=== PATIENT | male | born 1955 | race Caucasian/White ===

== ENCOUNTER 2020-12-04 10:10 | Inpatient (IN) | payer MEDICARE ==
--- NOTE | 2020-12-04 11:18 | R.PREADM ---
PRE-ADMISSION SCREENING FORM SCREENING DATE AND TIME 12/03/2020 12:39 (CDT) ANTICIPATED REHAB ADMISSION DATE 12/05/2020 REFERRING FACILITY [facility] REFERRAL DATE AND TIME 12/03/2020 12:40 (CDT) REFERRAL ROOM# [id number] ACUTE ADMIT DATE 11/30/2020 Previous Rehabilitation(s): No. 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 Sergio Huitron M.D. MR# [id number] NAME ASHLEY PARKS ADDRESS [address] [facility] PHONE [facility] [id number] DATE OF 1955 AGE 65 SSN# [id number] GENDER male MARITAL STATUS PREF. LANGUAGE (IF NON-AZERI) [place]uan ADMIT FROM 02 - [facility] PRE-HOSPITAL LIVING SETTING 01 - Home (private home/apt. board/care, assisted living, skilled nursing, transitional living) HOME TYPE AND DETAILS # of levels in the residence: 0 # of steps within the residence: 1 # of levels in the residence: 1 PRE-HOSPITAL LIVING WITH Family/Relatives FAMILY SUPPORT Yes PRIMARY FAMILY CONTACT NAME FRANCOISE PARKS PRIMARY FAMILY CONTACT PHONE PRIMARY FAMILY CONTACT RELATIONSHIP PHONE PRIMARY FAMILY CONTACT ON ADM.? no IS PRIMARY FAMILY CONTACT AUTH. REP.? no 1ST EMERGENCY CONTACT FRANCOISE PARKS 1ST CONTACT PHONE 1ST CONTACT RELATIONSHIP PHONE 1ST CONTACT ON ADM. no IS 1ST CONTACT AUTH. REP.? no PHONE 2ND CONTACT ON ADM.? no PATIENT EMPLOYMENT STATUS Employed [employer] PAYOR INFORMATION: 1ST PAYOR NAME Sandor Patten [facility] 1ST PAYOR PHONE [phone] 1ST PAYOR INJURY/ILLNESS DUE TO ACCIDENT? No ANOTHER DEMOCRAT RESPONSIBLE? No PRIMARY REHAB/ACUTE DIAGNOSIS: MASS LESION OF ALIA ONSET DATE 11/03/2020 REHAB IMPAIRMENT CATEGORY (ENRRIQUE): 03 Nontraumatic brain injury (NTBI) MEETS 60% rule PRIMARY DIAGNOSIS-RELATED SURGERIES: ANTERIOR CERVICAL FUSION INFRATENTORIAL CRANIECTOMY FOR EXCISION OF BRAIN TUMOR SUMMARY OF ACUTE HOSPITALIZATION: Pt. is a 65 yo Right-handed male. On 11/03/2020 he was admitted to [facility] with diagnosis MASS LESION OF ALIA. His impairment category is Brain Dysfunction 02 - Other Brain (02.9). Pre-morbidly, Pt. was independent/mod-I in Safety Awareness, Self-Care, and Communication; and he had good Endurance and Transfers Control. Currently, he has deficits of Locomotion, Transfers Control, Sphincter Control, Endurance, and Safety Awareness. Pt. is now referred to [facility] for acute in-patient rehabilitation in order to maximize patient's functional independence in activities of daily living, strength, ROM, and mobi lity. Patient has realistic goal of being discharged at assistance level 7-Ind to reside at Home with Fami ly/Relatives. PAST MEDICAL HISTORY ARTHRITIS MIGRAINE FALL PRECAUTIONS SEIZURE PRECAUTIONS COGNITIVE IMPAIRMANTS PAST SURGICAL HISTORY: RI EXCISE INFRATINT BRAIN TUMOR LEFT 09/25/20 INFRATENTORIAL CRANIECTOMY FOR EXCISION OF BRAIN TUMOR S/P LEFT SHUNT PLACEMENT MEDICATION ALLERGIES: No Known Drug Allergies (NKDA) ENVIRONMENTAL ALLERGIES: - Substance Allergies None Known - Other Allergies None Known CODE STATUS: Full code WEIGHT/HEIGHT/BMI: WEIGHT 131 lbs BMI N/A DIET: - Diet Type Regular - Diet - Solid Texture Regular - Diet - Liquid Texture Regular - Tube Feed N/A REVIEW OF SYSTEMS: - Gen Alert and awake Lying in bed No apparent distress Oriented to: person, time, and place - Vital Signs Temperature: 98.4 F SBP/DBP: 129/69 Pulse: 53 Resp: 17 Vital signs stable, afebrile - CVS RRR VITAL SIGNS Temperature: 98.4 F SBP/DBP: 129/69 Pulse: 53 Resp: 17 Vital signs stable, afebrile MEDICATIONS/TREATMENT: Other- See attached MAR (Medication Administration Record). CURRENT SPHINCTER CONTROL: Pre-hospital bladder status: unspecified # of bladder accidents in the last 7 days prior to screenin Pre-hospital bowel status: unspecified # of bowel accidents in the last 7 days prior to screenin Last Bowel Movement Date: 12/03/2020 CURRENT LOCOMOTION STATUS: distance walked 150 feet WITH ROLLING WALKER DETAILED CURRENT FUNCTIONAL STATUS: - Bladder accident frequency: 7-Ind - No accidents in the past 7 days - Bowel accident frequency: 7-Ind - No accidents in the past 7 days - Walking score based on distance walked: 0(N/A) score based on distance walked: 3(>=150ft) - Wheelchair score based on distance traveled: 0(N/A) QI SCORES: - Self-Care A. Eating 04-Supervision or touching assistance B. Oral hygiene 03-Partial/moderate assistance C. Toileting hygiene 03-Partial/moderate assistance E. Shower/bathe self 03-Partial/moderate assistance F. Upper body dressing 04-Supervision or touching assistance G. Lower body dressing 03-Partial/moderate assistance H. Putting on/taking off footwear 88-Not attempted due to medical condition or safety concerns - Mobility A. Roll left and right 04-Supervision or touching assistance B. Sit to lying 03-Partial/moderate assistance C. Lying to sitting on side of bed 03-Partial/moderate assistance D. Sit to stand 03-Partial/moderate assistance E. Chair/itr-bn-deaql transfer 03-Partial/moderate assistance F. Toilet transfer 03-Partial/moderate assistance G. Car transfer 88-Not attempted due to medical condition or safety concerns I. Walk 10 feet 03-Partial/moderate assistance J. Walk 50 feet with two turns 03-Partial/moderate assistance K. Walk 150 feet 03-Partial/moderate assistance L. Walking 10 feet on uneven surfaces 88-Not attempted due to medical condition or safety concerns M. 1 step (curb) 88-Not attempted due to medical condition or safety concerns N. 4 steps 88-Not attempted due to medical condition or safety concerns O. 12 steps 88-Not attempted due to medical condition or safety concerns P. Picking up object 88-Not attempted due to medical condition or safety concerns R. Wheel 50 feet with two turns 88-Not attempted due to medical condition or safety concerns S. Wheel 150 feet 03-Partial/moderate assistance - Bladder and Bowel Bladder continence Bowel continence - Endurance Fair - Balance Fair - Safety Awareness Fair CURRENT FUNC. DEFICITS: Self-Care, Mobility, Endurance, Balance, and Safety Awareness CURRENT / PREVIOUS ASSISTIVE DEVICES: Rolling Walker HISTORY OF FALLS. HAS THE PATIENT HAD TWO OR MORE FALLS IN THE PAST YEAR OR ANY FALL WITH INJURY IN T HE PAST YEAR?: No PRIOR SURGERY. DID THE PATIENT HAVE MAJOR SURGERY DURING THE 100 DAYS PRIOR TO ADMISSION?: No THERAPY NOTES FROM ACUTE CARE: Attached. SPECIAL NEEDS: - Safety Concerns Skin breakdown precautions needed due to skin breakdown risk PATIENT NEEDS ACTIVE AND ONGOING THERAPEUTIC INTERVENTION OF MULTIPLE THERAPY DISCIPLINES, INCLUDING: - Dietary and Nutrition Adequate Nutrition. Nutritional Education. Nutritional Supplements. PATIENT NEEDS CLOSE MEDICAL SUPERVISION BY A REHABILITATION PHYSICIAN FOR: Coordination of Treatment Team PATIENT REQUIRES 24X7 REHAB NURSING FOR MEDICAL AND FUNCTIONAL MGT. OF THE FOLLOWING DEFICITS: Disease Management Medication Management Patient/Family Education Providing Safe Environment PATIENT REQUIRES INTENSIVE, COORDINATED INTERDISCIPLINARY APPROACH TO REHAB: Arranging Home Equipment/Services Discharge Planning Family Intervention/Training Dye Machine Tender/Case Management PATIENT REHAB POTENTIAL: Francis PARKS is able and expected to receive 3 hours of individualized therapy daily on at least 5 of every 7 days Francis Pizarro prognosis for significant practical improvement within a reasonable period of time appe ars Good Expected level of measurable improvement will be of a practical value to Francis Pizarro functional cap acity or adaptations to impairments Has a viable Discharge Plan Medically appropriate; condition is sufficiently stable to participate in intensive rehab program DISCHARGE PLAN: - Estimated Length of Stay (days) 13. - Consensus on plan Discharge plan has been discussed with primary caregiver. Patient/Family is in agreement with the marie n. Primary caregiver is in agreement with the plan. - Patient/Family Goals Return home independently. - Planned Living Setting Upon Discharge Home, to live with Family/Relatives. Transitional Living. RECOMMENDED CARE LEVEL: IRF RECOMMENDATION DETAILS: Recommended Admission to Comprehensive Rehabilitation Program to Increase Functional [place] SCREENER'S COMPLETENESS CONFIRMATION: - Screening Confirmation The patient data collection on this preadmission screening form is finished PHYSICIANS REVIEW AND ADMISSION DETERMINATION Admit - Based on my review of the Pre-Admission Screening results, in my medical judgment and experie nce, I concur with the findings and recommend admission to [facility], as this patient requires an IRF level of care. SIGNATURE PANEL: Glass Sagger - [electronically] signed by Delbert Ndiaye on 12/04/2020 at 10:00 (CDT) Glass Sagger - [electronically] signed by Gretchen Bradley RN on 12/04/2020 at 10:13 (CDT) Physician Reviewer - [electronically] signed by Dr. Sergio Huitron M.D. on 12/04/2020 at 11:18 (CDT )
--- OUTSIDE RECORDS SUMMARY | 2020-12-04 15:18 | XMS REPORT | Continuity of Care Document ---
:1955 Author Organization [facility] t Address [address] [place] [address] Care Team Providers Name Role Phone MARISOL JUÁREZ Attending Clinician Unavailable Yaakov WARREN Attending Clinician Cara Moe MD Attending Clinician Cara MOE Attending Clinician Unavailable Ganga Attending Clinician SANJUANITA Attending Clinician Unavailable Boy WARREN Attending Clinician RN, B Attending Clinician Rain DIOR Attending Clinician Christopher MACE Attending Clinician Unavailable Jeremi COLLEGE COUNSELOR Attending Clinician Colton VELÁSQUEZ Attending Clinician Vinod TOOLING ENGINEERING TECH Attending Clinician Nicolás WARREN Attending Clinician Rafael Paul MD Attending Clinician Mathieu WARREN Attending Clinician Marisol Juárez MD Attending Clinician Delia WARREN Attending Clinician Caitlin WARREN Attending Clinician Harjit Espinoza Attending Clinician Julio Rose Attending Clinician DELIA Attending Clinician Unavailable Eldon Vickers Attending Clinician Cara MOE Admitting Clinician Unavailable MATHIEU Admitting Clinician Unavailable Payers Payer Name Policy Type Policy Number Effective Date Expiration Date Tiffanie chen [place] [id number] 2020 ADVANTAGE HMO 00:00:00 EXCHANGE PLAN Problems Condition Condition Condition Status Onset Resolution Last Treating Co mments Source Name Details Category Date Date Treatment Clinician Date Malignant Malignant Disease Active neoplasm neoplasm 6-16 Godfrey o related related 00:00: n fatigue fatigue 00 Meningitis Meningitis Disease Active M D 6-02 Anderso 00:00: n 00 Muscle Muscle Disease Active MD weakness weakness 5-28 Godfrey o 00:00: n 00 Hypokalemi Hypokalemi Disease Active M D a a 5-28 Anderso 00:00: n 00 Functional Functional Disease Active M D gait gait 5-27 Anderso abnormalit abnormalit 00:00: n y y 00 Abnormal Abnormal Disease Active gait gait 5-27 Anderso 00:00: n 00 Personal Personal Disease Active MD care care 5-27 Anderso impairment impairment 00:00: n 00 Slow Slow Disease Active transit transit 5-26 Anderso constipati constipati 00:00: n on on 00 Acute Acute Disease Active headache headache 5-24 Godfrey o 00:00: n 00 Severe Severe Disease Active protein-ca protein-ca 5-20 An derso russ russ 00:00: n malnutriti malnutriti 00 on on Pseudomeni Pseudomeni Disease Active Overview : ngocele ngocele 5-19 Formattin Jeffrey so 00:00: g of this n 00 note might be different from the original. 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 09-22 An derso headache headache 00:00: n (NDPH) (NDPH) 00 Vasogenic Vasogenic Disease Active cerebral cerebral 09-22 Godfrey o edema edema 00:00: n 00 Obstructiv Obstructiv Disease Active M D e e 09-22 Anderso hydrocepha hydrocepha 00:00: n alfonzo alfonzo 00 VOMITING Diagnosis Active 2020-10-04 M emoria 09-21 21:44:00 l VOMITING 00:00: Sanjay n 00 Active 09/21/2020 [facility] Metabolic Metabolic Disease Active encephalop encephalop An derso athy athy n Raised Raised Disease Resolve 2020-10-12 2020-10-12 intracrani intracrani d 09-23 00:00:00 12:44:58 Anderso al al 00:00: n pressure pressure 00 Allergies, Adverse Reactions, Alerts Allergy Allergy Status Severity Reaction(s) Onset Inactive Treating Comm ents Source Name Type Date Date Clinician No Known No Known Active Memori a Medicati Medicati l on on Ishan Allergie Allergie s s Family History Family Member Diagnosis Comments Start Date Stop Date Source Maternal grandfather Colon cancer MD Delarosa Maternal grandmother Diabetes MD Eli saldivar Maternal grandmother Hypertension MD Delarosa Social History Social Habit Start Date Stop Date Quantity Comments Source Exposure to Not sure MD Delarosa SARS-CoV-2 (event) Tobacco use and 2020-11-30 2020-11-30 Never used MD Donahue on exposure 00:00:00 00:00:00 Alcohol intake 2020-11-30 2020-11-30 Lifetime MD Ivett stevenson 00:00:00 00:00:00 non-drinker (finding) History SDOH 2020-09-22 2020-09-22 1 MD Delarosa Alcohol Frequency 00:00:00 00:00:00 History SDOH 2020-09-22 2020-09-22 99 MD Delarosa Alcohol Std Drinks 00:00:00 00:00:00 History SDOH 2020-09-22 2020-09-22 1 MD Delarosa Alcohol Binge 00:00:00 00:00:00 [birth year] MD Donahue on 00:00:00 00:00:00 Smoking Status Start Date Stop Date Source Never smoker MD Delarosa Medications Ordered Filled Start Stop Current Ordering Indication Dosage Frequency Signature Comments Components Source Medication Medication Date Date Medication? Clinician (SIG) Name Name acetaminoph Yes Headache, 1{tbl} Take 1 MD en-codeine 6-18 unspecified tablet by Anderso (TYLENOL 00:00: , not mouth n #3) 300 00 otherwise every 4 mg-30 mg specified (four) tablet hours as needed for moderate pain. famotidine Yes Nausea 20mg Take 1 MD (PEPCID) 20 6-18 tablet (20 An derso mg tablet 00:00: mg) by n 00 mouth twice daily. metoprolol Yes Hypertensio 12.5mg Take 0.5 MD tartrate 6-18 n tablets Anderso (LOPRESSOR) 00:00: (12.5 mg) n 25 mg 00 by mouth tablet every 12 (twelve) hours. polyethylen Yes Slow Reconstitu e glycol 6-18 transit te powder And erso (MIRALAX) 00:00: constipatio packet n 17 g packet 00 n prior to administra tion. Stir and dissolve one packet of powder (17g) in any 4 to 8 ounces of beverage (cold, hot or room temperatur e). potassium Yes Hypokalemia 20meq Take 2 MD chloride 6-18 capsules Anderso (MICRO-K) 00:00: (20 mEq) n 10 mEq CR 00 by mouth capsule daily. ondansetron Yes Nausea 4mg Take 1 MD (ZOFRAN) 4 6-18 tablet (4 Jameel rso mg tablet 00:00: mg) by n 00 mouth every 6 (six) hours as needed for nausea or vomiting. amLODIPine Yes Hypertensio 5mg Take 1 MD (NORVASC) 5 6-18 n tablet (5 And erso mg tablet 00:00: mg) by n 00 mouth daily. senna-docus Yes Slow 1{tbl} Take 1 MD ate 6-18 transit tablet by Anderso (SENOKOT-S) 00:00: constipatio mouth n 8.6 mg-50 00 n daily. mg tablet amLODIPine 2020- No Hypertensio 5mg Take 1 MD (NORVASC) 5 4-17 06-18 n tablet (5 An derso mg tablet 00:00: 00:00 mg) by n 00 :00 mouth daily. traMADol 2020- No Mass lesion 50mg Take 1 MD (ULTRAM) 50 4-16 06-18 of brain tablet (50 Anderso mg tablet 00:00: 00:00 mg) by n 00 :00 mouth every 6 (six) hours as needed for moderate pain. amLODIPine 2020- No Mass lesion 5mg Take 1 MD (NORVASC) 5 4-16 04-16 of brain tablet (5 Anderso mg tablet 00:00: 00:00 mg) by n 00 :00 mouth daily. pantoprazol 2020- No Mass lesion 40mg Take 1 MD e 4-13 04-16 of brain tablet (40 Jameel rso (PROTONIX) 00:00: 00:00 mg) by n 40 mg EC 00 :00 mouth tablet daily. Take while on dexamethas one senna-docus 2020- No Mass lesion 1{tbl} Take 1 MD ate 4-12 06-18 of brain tablet by Jeffrey so (SENOKOT-S) 00:00: 00:00 mouth n 8.6 mg-50 00 :00 twice mg tablet daily. dexamethaso 2020- No Mass lesion Take and MD ne 4-12 04-16 of brain follow Anderso (DECADRON) 00:00: 00:00 dexamethas n 2 mg tablet 00 :00 one taper calendar as directed until all tablets are taken. Take with food and protonix. Do not stop abruptly traMADol 2020- No Mass lesion 50mg Take 1 MD (ULTRAM) 50 4-12 04-16 of brain tablet (50 Anderso mg tablet 00:00: 00:00 mg) by n 00 :00 mouth every 6 (six) hours as needed for moderate pain. Dexamethaso Yes Notes: Rogelio yossi ne 4-06 Concentrat l 04:36: ion: [place] 00 4mg/ml Ondansetron No Notes: Rogelio yossi -06 (Same as: l 00:46: Zofran) [place] 00 MEDICATION WASTE Product Size: 4 mg Product Wasted: ___ mg Sodium No 1,000 mL, Memori a Chloride 06 1000 l 0.9% 00:46: ml/hr, Ishan (Bolus) IV 00 Infuse Over: 1 hr, Route: IV, 1,000, Drug form: INJ, ONCE, Priority: STAT, kg, Start date: 09/21/20 19:46:00 CDT, Stop date: 09/21/20 19:46:00 CDT, 0 ondansetron No 4mg 4 mg every MD (ZOFRAN) 4 3-22 18 6 (six) Jeffrey so mg tablet 00:00: 00:00 hours as n 00 :00 needed. Vital Signs Vital Name Observation Time Observation Value Comments Source WEIGHT 2020-09-25 06:31:00 60.7 kg HEIGHT 2020-09-22 01:13:00 172.7 cm WEIGHT 2020-09-25 06:31:00 60.7 kg HEIGHT 2020-09-22 01:13:00 172.7 cm Systolic blood 2020-12-04 17:31:00 114 mm[Hg] pressure Diastolic blood 2020-12-04 17:31:00 65 mm[Hg] MD Sienna ruby pressure Heart rate 2020-12-04 17:31:00 48 /min MD Jeffrey garcia Body temperature 2020-12-04 17:31:00 36.78 Chelita MD Eli saldivar Respiratory rate 2020-12-04 17:31:00 15 /min MD Eli saldivar Oxygen saturation in 2020-12-04 17:31:00 97 /min MD Delarosa Arterial blood by Pulse oximetry Body weight 2020-11-25 10:02:00 58.1 kg MD Jeffrey garcia BMI 2020-11-25 10:02:00 19.59 kg/m2 MD Jeffrey garcia Body height 2020-11-06 17:17:00 172.2 cm MD Jeffrey garcia Temperature Oral (F) 2020-09-22 05:23:00 98.2 F [facility] Heart Rate 2020-09-22 05:23:00 [facility] [place] Respitory Rate 2020-09-22 05:23:00 Memori al Ishan Systolic (mm Hg) 2020-09-22 05:23:00 Rogelio rial Ishan Diastolic (mm Hg) 2020-09-22 05:23:00 Mem orial Ishan Height 2020-09-22 00:45:00 175.26 cm [facility] BMI Calculated 2020-09-22 00:45:00 [facility] [place] Weight 2020-09-22 00:45:00 [facility] [place] Systolic (mm Hg) 2020-09-22 00:45:00 Rogelio rial Ishan Diastolic (mm Hg) 2020-09-22 00:45:00 Mem orial Ishan Heart Rate 2020-09-22 00:45:00 [facility] Respitory Rate 2020-09-22 00:45:00 Memori al Ishan Temperature Oral (F) 2020-09-22 00:45:00 98.2 F [facility] Procedures Procedure Date / Time Performed Performing Clinician [facility] clarissa MAGNESIUM LEVEL 2020-12-04 10:45:00 Koby Palacios MD PHOSPHORUS LEVEL 2020-12-04 10:45:00 Koby Palacios MD BASIC METABOLIC PANEL, 2020-12-04 10:45:00 Koby Palacios MD CALCIUM IONIZED COMPLETE BLOOD COUNT W/ 2020-12-04 10:45:00 Fredi Lira MD DIFFERENTIAL PREALBUMIN 2020-12-04 10:45:00 Koby Palacios MD GLUCOSE LEVEL 2020-12-04 10:45:00 Janiya Moe MD rsbrooklynn BLOOD UREA NITROGEN 2020-12-04 10:45:00 Janiya Moe MD ELECTROLYTE PANEL 2020-12-04 10:45:00 Janiya Moe MD SERUM CREATININE 2020-12-04 10:45:00 Janiya Moe MD And erson .GLOMERULAR FILTRATION RATE 2020-12-04 10:45:00 Parul Moe MD CALCIUM IONIZED, VENOUS 2020-12-04 10:45:00 Janiya Moe MD Results CBC 2020-12-04 10:45:00 Fredi Lira MD MANUAL DIFFERENTIAL 2020-12-04 10:45:00 Fredi Lira MD Jeffrey son INFLUENZA A/B + COVID-19 2020-12-04 03:34:00 Janiya Moe MD ASYMPTOMATIC-L BASIC METABOLIC PANEL, 2020-12-03 10:35:00 Koby Palacios MD CALCIUM IONIZED COMPLETE BLOOD COUNT W/ 2020-12-03 10:35:00 Fredi Lira MD nderson DIFFERENTIAL GLUCOSE LEVEL 2020-12-03 10:35:00 Janiya Moe MD Jameel rson BLOOD UREA NITROGEN 2020-12-03 10:35:00 Janiya Moe MD ELECTROLYTE PANEL 2020-12-03 10:35:00 Janiya Moe MD SERUM CREATININE 2020-12-03 10:35:00 Janiya Moe MD And erson .GLOMERULAR FILTRATION RATE 2020-12-03 10:35:00 Parul Moe MD CALCIUM IONIZED, VENOUS 2020-12-03 10:35:00 Janiya Moe MD Results CBC 2020-12-03 10:35:00 Fredi Lira MD MANUAL DIFFERENTIAL 2020-12-03 10:35:00 Fredi Lira MD Jeffrey son MRI CERVICAL THORACIC LUMBAR 2020-12-02 23:06:27 Milad Sibley MD SPINE WO CONTRAST POTASSIUM LEVEL 2020-12-02 19:23:00 Landy Schuler MD on CALCIUM IONIZED, VENOUS 2020-12-02 12:13:00 Janiya Moe MD MAGNESIUM LEVEL 2020-12-02 10:43:00 Koby Palacios MD PHOSPHORUS LEVEL 2020-12-02 10:43:00 Koby Palacios MD BASIC METABOLIC PANEL, 2020-12-02 10:43:00 Koby Palacios MD CALCIUM IONIZED COMPLETE BLOOD COUNT W/ 2020-12-02 10:43:00 Fredi Lira MD DIFFERENTIAL GLUCOSE LEVEL 2020-12-02 10:43:00 Janiya Moe MD Jameel rson BLOOD UREA NITROGEN 2020-12-02 10:43:00 Janiya Moe MD ELECTROLYTE PANEL 2020-12-02 10:43:00 Janiya Moe MD SERUM CREATININE 2020-12-02 10:43:00 Janiya Moe MD And erson .GLOMERULAR FILTRATION RATE 2020-12-02 10:43:00 Parul Moe MD Results CBC 2020-12-02 10:43:00 Fredi Lira MD MANUAL DIFFERENTIAL 2020-12-02 10:43:00 Fredi Lira MD son OSCILLATORY PEP 2020-12-02 01:00:19 Landy Schuler MD on OSCILLATORY PEP 2020-12-01 19:00:50 Landy Schuler MD on OSCILLATORY PEP 2020-12-01 13:00:18 Landy Schuler MD on BASIC METABOLIC PANEL, 2020-12-01 10:46:00 Koby Palacios MD CALCIUM IONIZED COMPLETE BLOOD COUNT W/ 2020-12-01 10:46:00 Fredi Lira MD DIFFERENTIAL GLUCOSE LEVEL 2020-12-01 10:46:00 Janiya Moe MD Jameel rson BLOOD UREA NITROGEN 2020-12-01 10:46:00 Janiya Moe MD ELECTROLYTE PANEL 2020-12-01 10:46:00 Janiya Moe MD SERUM CREATININE 2020-12-01 10:46:00 Janiya Moe MD And erson .GLOMERULAR FILTRATION RATE 2020-12-01 10:46:00 Parul Moe MD CALCIUM IONIZED, VENOUS 2020-12-01 10:46:00 Janiya Moe MD Results CBC 2020-12-01 10:46:00 Fredi Lira MD MANUAL DIFFERENTIAL 2020-12-01 10:46:00 Fredi Lira MD Jeffrey son OSCILLATORY PEP 2020-12-01 01:00:18 Landy Schuler MD on POTASSIUM LEVEL 2020-11-30 17:59:00 Landy Schuler MD on OSCILLATORY PEP 2020-11-30 13:00:17 Landy Schuler MD on BASIC METABOLIC PANEL, 2020-11-30 11:03:00 Koby Palacios MD CALCIUM IONIZED COMPLETE BLOOD COUNT W/ 2020-11-30 11:03:00 Fredi Lira MD nderson DIFFERENTIAL GLUCOSE LEVEL 2020-11-30 11:03:00 Janiya Moe MD Jameel rson BLOOD UREA NITROGEN 2020-11-30 11:03:00 Janiya Moe MD ELECTROLYTE PANEL 2020-11-30 11:03:00 Janiya Moe MD SERUM CREATININE 2020-11-30 11:03:00 Janiya Moe MD And erson .GLOMERULAR FILTRATION RATE 2020-11-30 11:03:00 Parul Moe MD CALCIUM IONIZED, VENOUS 2020-11-30 11:03:00 Janiya Moe MD Results CBC 2020-11-30 11:03:00 Fredi Lira MD MANUAL DIFFERENTIAL 2020-11-30 11:03:00 Fredi Lira MD Jeffrey son MAGNESIUM LEVEL 2020-11-30 11:03:00 Janiya Moe MD Jameel rson PHOSPHORUS LEVEL 2020-11-30 11:03:00 Janiya Moe MD And erson OSCILLATORY PEP 2020-11-30 07:00:23 Landy Schuler MD on OSCILLATORY PEP 2020-11-30 01:00:23 [address] MD on CT CHEST ABDOMEN PELVIS W WO 2020-11-29 22:53:28 Louisa Rowan MD CONTRAST BASIC METABOLIC PANEL, 2020-11-29 11:00:00 Koby Palacios MD CALCIUM IONIZED COMPLETE BLOOD COUNT W/ 2020-11-29 11:00:00 Fredi Lira MD DIFFERENTIAL GLUCOSE LEVEL 2020-11-29 11:00:00 Janiya Moe MD Jameelclarissa galarza BLOOD UREA NITROGEN 2020-11-29 11:00:00 Janiya Moe MD ELECTROLYTE PANEL 2020-11-29 11:00:00 Janiya Moe MD SERUM CREATININE 2020-11-29 11:00:00 Janiya Moe MD And erson .GLOMERULAR FILTRATION RATE 2020-11-29 11:00:00 Parul Moe MD CALCIUM IONIZED, VENOUS 2020-11-29 11:00:00 Janiya Moe MD Results CBC 2020-11-29 11:00:00 Fredi Lira MD MANUAL DIFFERENTIAL 2020-11-29 11:00:00 Fredi Lira MD son OSCILLATORY PEP 2020-11-29 07:00:27 Landy Schuler MD on OSCILLATORY PEP 2020-11-29 01:00:18 Landy Schuler MD on EKG, 12-LEAD (PORTABLE) 2020-11-29 00:00:00 Marina Ren MDrson OSCILLATORY PEP 2020-11-28 19:00:54 Landy Schuler MD on OSCILLATORY PEP 2020-11-28 13:00:17 Landy Schuler MD on AMMONIA LEVEL 2020-11-28 11:50:00 Fredi Lira MD BASIC METABOLIC PANEL, 2020-11-28 11:50:00 Koby Palacios MD CALCIUM IONIZED COMPLETE BLOOD COUNT W/ 2020-11-28 11:50:00 Fredi Lira MD DIFFERENTIAL GLUCOSE LEVEL 2020-11-28 11:50:00 Janiya Moe MD Jameelclarissa galarza BLOOD UREA NITROGEN 2020-11-28 11:50:00 Janiya Moe MD ELECTROLYTE PANEL 2020-11-28 11:50:00 Janiya Moe MD SERUM CREATININE 2020-11-28 11:50:00 Janiya Moe MD And erson .GLOMERULAR FILTRATION RATE 2020-11-28 11:50:00 Parul Moe MD CALCIUM IONIZED, VENOUS 2020-11-28 11:50:00 Janiya Moe MD Results CBC 2020-11-28 11:50:00 Fredi Lira MD MANUAL DIFFERENTIAL 2020-11-28 11:50:00 Fredi Lira MD Jeffrey son MAGNESIUM LEVEL 2020-11-28 11:50:00 Janiya Moe MD Jameel rson PHOSPHORUS LEVEL 2020-11-28 11:50:00 Janiya Moe MD And erson OSCILLATORY PEP 2020-11-28 07:00:25 Landy Schuler MD on OSCILLATORY PEP 2020-11-28 01:00:23 Landy Schuler MD on XR ABDOMEN 1 VW PORTABLE 2020-11-27 20:53:31 Fredi Lira MD OSCILLATORY PEP 2020-11-27 19:24:57 Landy Schuler MD on BASIC METABOLIC PANEL, 2020-11-27 17:49:00 Landy Schuler MD CALCIUM TOTAL GLUCOSE LEVEL 2020-11-27 17:49:00 Landy Schuler MD on BLOOD UREA NITROGEN 2020-11-27 17:49:00 Landy Schuler MDson ELECTROLYTE PANEL 2020-11-27 17:49:00 Landy Schuler MD Jameel rson SERUM CREATININE 2020-11-27 17:49:00 Landy Schuler MD Jeffrey son .GLOMERULAR FILTRATION RATE 2020-11-27 17:49:00 Vanessa Schuler MD CALCIUM LEVEL TOTAL 2020-11-27 17:49:00 Landy Schuler MD BASIC METABOLIC PANEL, 2020-11-27 10:38:00 Koby Palacios MD CALCIUM IONIZED COMPLETE BLOOD COUNT W/ 2020-11-27 10:38:00 Fredi Lira MD nderson DIFFERENTIAL PREALBUMIN 2020-11-27 10:38:00 Koby Palacios MD GLUCOSE LEVEL 2020-11-27 10:38:00 Janiya Moe MD Jameel rson BLOOD UREA NITROGEN 2020-11-27 10:38:00 Janiya Moe MD ELECTROLYTE PANEL 2020-11-27 10:38:00 Janiya Moe MD SERUM CREATININE 2020-11-27 10:38:00 Janiya Moe .GLOMERULAR FILTRATION RATE 2020-11-27 10:38:00 Parul Moe MD CALCIUM IONIZED, VENOUS 2020-11-27 10:38:00 Janiya Moe MD Results CBC 2020-11-27 10:38:00 Fredi Lira MD MANUAL DIFFERENTIAL 2020-11-27 10:38:[address] HEAD WO CONTRAST 2020-11-27 09:06:00 Dajuan Bay MD XR SHUNT SERIES 2020-11-26 23:30:00 Koby Palacios MD COMPLETE BLOOD COUNT W/ 2020-11-26 07:46:00 Koby Palacios MD DIFFERENTIAL BASIC METABOLIC PANEL, 2020-11-26 07:46:00 Koby Palacios MD CALCIUM IONIZED Results CBC 2020-11-26 07:46:00 Sujata Grimes MD MANUAL DIFFERENTIAL 2020-11-26 07:46:00 Sujata Grimes MD [facility] GLUCOSE LEVEL 2020-11-26 07:46:00 Scooter Jones MD BLOOD UREA NITROGEN 2020-11-26 07:46:00 Scooter Jones MD [facility] ELECTROLYTE PANEL 2020-11-26 07:46:00 [facility] 2020-11-26 07:46:00 Scooter Jones MD .GLOMERULAR FILTRATION RATE 2020-11-26 07:46:00 Scooter Jones MD CALCIUM IONIZED, VENOUS 2020-11-26 07:46:00 Scooter Jones MD MAGNESIUM LEVEL 2020-11-26 07:46:00 Scooter Jones MD PHOSPHORUS LEVEL 2020-11-26 07:46:[address] HEAD WO CONTRAST 2020-11-26 02:56:25 Louisa Rowan MD son EKG, 12-LEAD (PORTABLE) 2020-11-26 00:00:00 Laisha Walker MD POC GLUCOSE SCREEN 2020-11-25 20:37:00 Janiya Moe MD CREATION OF 2020-11-25 16:10:00 Janiya Moe MD Jameel rsbrooklynn VENTRICULO-PERITONEAL SHUNT TYPE AND SCREEN 2020-11-25 11:09:00 Louisa Rowan MD PROTHROMBIN TIME 2020-11-25 11:09:00 Louisa Rowan MD PARTIAL THROMBOPLASTIN TIME 2020-11-25 11:09:00 Louisa Rowan MD ABORH 2020-11-25 11:09:00 Janiya Moe MD rson ANTIBODY SCREEN 2020-11-25 11:09:00 Janiya Moe MD Jameelclarissa galarza CLOT EXPIRATION DATE 2020-11-25 11:09:00 Janiya Moe MD TMP INTERPRETATION ANTIBODY 2020-11-25 11:09:00 Parul Moe MD SCREEN NEGATIVE BASIC METABOLIC PANEL, 2020-11-25 05:55:00 Koby Palacios MD CALCIUM IONIZED GLUCOSE LEVEL 2020-11-25 05:55:00 Scooter Jones MD BLOOD UREA NITROGEN 2020-11-25 05:55:00 Scooter Jones MD son ELECTROLYTE PANEL 2020-11-25 05:55:00 Scooter Jones MD n SERUM CREATININE 2020-11-25 05:55:00 Scooter Jones MD .GLOMERULAR FILTRATION RATE 2020-11-25 05:55:00 Scooter Jones MD CALCIUM IONIZED, VENOUS 2020-11-25 05:55:00 Scooter Jones MD VANCOMYCIN LEVEL TROUGH 2020-11-25 04:17:00 Morenita Park MD Nancie US LEG VENOUS DOPPLER 2020-11-24 15:21:21 Louisa Rowanon BILATERAL COMPLETE BLOOD COUNT W/ 2020-11-24 05:39:00 Koby Palacios MD DIFFERENTIAL MAGNESIUM LEVEL 2020-11-24 05:39:00 Koby Palacios MD PHOSPHORUS LEVEL 2020-11-24 05:39:00 Koby Palacios MD BASIC METABOLIC PANEL, 2020-11-24 05:39:00 Koby Palacios MD CALCIUM IONIZED Results CBC 2020-11-24 05:39:00 Sujata Grimes MD MANUAL DIFFERENTIAL 2020-11-24 05:39:00 Sujata Grimes MD [facility] GLUCOSE LEVEL 2020-11-24 05:39:00 Scooter Jones MD BLOOD UREA NITROGEN 2020-11-24 05:39:00 Scooter Jones MD [facility] ELECTROLYTE PANEL 2020-11-24 05:39:00 Scooter Jones MD SERUM CREATININE 2020-11-24 05:39:00 Scooter Jones MD .GLOMERULAR FILTRATION RATE 2020-11-24 05:39:00 Scooter Jones MD CALCIUM IONIZED, VENOUS 2020-11-24 05:39:00 Scooter Jones MD POC GLUCOSE SCREEN 2020-11-23 22:30:[address] HEAD WO CONTRAST 2020-11-23 20:08:09 Louisa Rowan MD [facility] POC GLUCOSE SCREEN 2020-11-23 16:36:00 Janiya Moe MD BASIC METABOLIC PANEL, 2020-11-23 06:04:00 Koby Palacios MD CALCIUM IONIZED GLUCOSE LEVEL 2020-11-23 06:04:00 Scooter Jones MD BLOOD UREA NITROGEN 2020-11-23 06:04:00 Scooter Jones MD son ELECTROLYTE PANEL 2020-11-23 06:04:00 Scooter Jones MD SERUM CREATININE 2020-11-23 06:04:00 Scooter Jones MD .GLOMERULAR FILTRATION RATE 2020-11-23 06:04:00 Scooter Jones MD CALCIUM IONIZED, VENOUS 2020-11-23 06:04:00 Scooter Jones MD VANCOMYCIN LEVEL TROUGH 2020-11-22 16:30:00 Janiya Moe MD COMPLETE BLOOD COUNT W/ 2020-11-22 06:18:00 Koby Palacios MD DIFFERENTIAL BASIC METABOLIC PANEL, 2020-11-22 06:18:00 Pricilla Burton MD CALCIUM IONIZED MAGNESIUM LEVEL 2020-11-22 06:18:00 Koby Palacios MD PHOSPHORUS LEVEL 2020-11-22 06:18:00 Koby Palacios MD Results CBC 2020-11-22 06:18:00 Sujata Grimes MD MANUAL DIFFERENTIAL 2020-11-22 06:18:00 Sujata Grimes MD [facility] GLUCOSE LEVEL 2020-11-22 06:18:00 Scooter Jones MD BLOOD UREA NITROGEN 2020-11-22 06:18:00 Scooter Jones MD [facility] ELECTROLYTE PANEL 2020-11-22 06:18:00 Scooter Jones MD SERUM CREATININE 2020-11-22 06:18:00 Scooter Jones MD .GLOMERULAR FILTRATION RATE 2020-11-22 06:18:00 Scooter Jones MD CALCIUM IONIZED, VENOUS 2020-11-22 06:18:00 Scooter Jones MD POC GLUCOSE SCREEN 2020-11-20 22:29:00 Janiya Moe MD VANCOMYCIN LEVEL TROUGH 2020-11-20 16:32:00 Scooter Jones MD PREALBUMIN 2020-11-20 11:59:00 Koby Palacios MD COMPLETE BLOOD COUNT W/ 2020-11-20 06:06:00 Koby Palacios MD DIFFERENTIAL BASIC METABOLIC PANEL, 2020-11-20 06:06:00 Mitch Villalobos MD CALCIUM IONIZED MAGNESIUM LEVEL 2020-11-20 06:06:00 Belle Medellin MD PHOSPHORUS LEVEL 2020-11-20 06:06:00 Belle Medellin MD Results CBC 2020-11-20 06:06:00 Sujata Grimes MD MANUAL DIFFERENTIAL 2020-11-20 06:06:00 Sujata Grimes MD Jeffrey [facility] GLUCOSE LEVEL 2020-11-20 06:06:00 Sujata Grimes MD BLOOD UREA NITROGEN 2020-11-20 06:06:00 Sujata Grimes MD [facility] ELECTROLYTE PANEL 2020-11-20 06:06:00 Sujata Grimes MD SERUM CREATININE 2020-11-20 06:06:00 Sujata Grimes MD .GLOMERULAR FILTRATION RATE 2020-11-20 06:06:00 Sujata Grimes MD CALCIUM IONIZED, VENOUS 2020-11-20 06:06:00 Sujata Grimes MD VANCOMYCIN LEVEL TROUGH 2020-11-19 16:30:00 Scooter Jones MD PLATELET COUNT 2020-11-19 13:26:00 Kasandra Pool MD BASIC METABOLIC PANEL, 2020-11-19 07:07:00 Mitch Villalobos MD CALCIUM IONIZED MAGNESIUM LEVEL 2020-11-19 07:07:00 Belle Medellin MD PHOSPHORUS LEVEL 2020-11-19 07:07:00 Belle Medellin MD GLUCOSE LEVEL 2020-11-19 07:07:00 Sujata Grimes MD BLOOD UREA NITROGEN 2020-11-19 07:07:00 Sujata Grimes MD [facility] ELECTROLYTE PANEL 2020-11-19 07:07:00 Sujata Grimes MD SERUM CREATININE 2020-11-19 07:07:00 Sujata Grimes MD .GLOMERULAR FILTRATION RATE 2020-11-19 07:07:00 Sujata Grimes MD CALCIUM IONIZED, VENOUS 2020-11-19 07:07:00 Sujata Grimes MD EKG, 12-LEAD (PORTABLE) 2020-11-19 00:00:00 Pricilla Burton MD POC GLUCOSE SCREEN 2020-11-18 22:14:00 Janiya Moe MD POC GLUCOSE SCREEN 2020-11-18 16:19:00 Janiya Moe MD COMPLETE BLOOD COUNT W/ 2020-11-18 06:39:00 Koby Palacios MD DIFFERENTIAL BASIC METABOLIC PANEL, 2020-11-18 06:39:00 Mitch Villalobos MD CALCIUM IONIZED MAGNESIUM LEVEL 2020-11-18 06:39:00 VigneshBelle lopez MD PHOSPHORUS LEVEL 2020-11-18 06:39:00 Belle Medellin MD Results CBC 2020-11-18 06:39:00 Sujata Grimes MD MANUAL DIFFERENTIAL 2020-11-18 06:39:00 Sujata Grimes MD [facility] GLUCOSE LEVEL 2020-11-18 06:39:00 Sujata Grimes MD BLOOD UREA NITROGEN 2020-11-18 06:39:00 Sujata Grimes MD [facility] ELECTROLYTE PANEL 2020-11-18 06:39:00 Sujata Grimes MD SERUM CREATININE 2020-11-18 06:39:00 Sujata Grimes MD .GLOMERULAR FILTRATION RATE 2020-11-18 06:39:00 Sujata Grimes MD CALCIUM IONIZED, VENOUS 2020-11-18 06:39:00 Sujata Grimes MD VANCOMYCIN LEVEL TROUGH 2020-11-18 03:45:00 Scooter Jones MD BASIC METABOLIC PANEL, 2020-11-17 07:20:00 Mitch Villalobos MD CALCIUM IONIZED MAGNESIUM LEVEL 2020-11-17 07:20:00 VigneshBelle lopez MD PHOSPHORUS LEVEL 2020-11-17 07:20:00 Belle Medellin MD GLUCOSE LEVEL 2020-11-17 07:20:00 Sujata Grimes MD BLOOD UREA NITROGEN 2020-11-17 07:20:00 Sujata Grimes MD [facility] ELECTROLYTE PANEL 2020-11-17 07:20:00 Sujata Grimes MD SERUM CREATININE 2020-11-17 07:20:00 Sujata Grimes MD .GLOMERULAR FILTRATION RATE 2020-11-17 07:20:00 Sujata Grimes MD CALCIUM IONIZED, VENOUS 2020-11-17 07:20:00 Sujata Grimes MD CELL COUNT W/ DIFF 2020-11-16 19:16:00 Koby West MD CEREBROSPINAL FLUID CSF CULTURE 2020-11-16 19:16:00 Koby West MD Jameel rson FUNGUS,CATHETER TIP CULTURE 2020-11-16 19:16:00 Koby West MD AFB CULTURE W/ SMEAR 2020-11-16 19:16:00 Koby West MD MENINGITIS-ENCEPHALITIS 2020-11-16 19:16:00 Koby West MD MULTIPLEX PANEL PROTEIN CEREBROSPINAL FLUID 2020-11-16 19:16:00 Koby West MD GLUCOSE CEREBROSPINAL FLUID 2020-11-16 19:16:00 Koby West MD CATHETER TIP CULTURE 2020-11-16 19:16:00 Koby West MD ANAEROBIC CULTURE 2020-11-16 19:16:00 Brandyn Adams MD And radha MENINGITIS-ENCEPHALITIS PANEL 2020-11-16 19:16:00 Jonny Moe MD MENINGITIS-ENCEPHALITIS 2020-11-16 19:16:00 Janiya Moe MD MULTIPLEX PANEL PATH REVIEW CRYPTOCOCCAL ANTIGEN 2020-11-16 19:16:00 Janiya Moe MD CRYPTOCOCCAL ANTIGEN PATH 2020-11-16 19:16:00 Janiya Moe MD REVIEW ARTERIAL BLOOD GAS 2020-11-16 13:28:00 Scooter Jones MD on COMPLETE BLOOD COUNT W/ 2020-11-16 06:32:00 Koby Palacios MD DIFFERENTIAL BASIC METABOLIC PANEL, 2020-11-16 06:32:00 Mitch Villalobos MD CALCIUM IONIZED MAGNESIUM LEVEL 2020-11-16 06:32:00 Belle Medellin MD PHOSPHORUS LEVEL 2020-11-16 06:32:00 Belle Medellin MD Results CBC 2020-11-16 06:32:00 Sujata Grimes MD MANUAL DIFFERENTIAL 2020-11-16 06:32:00 Sujata Grimes MD [facility] GLUCOSE LEVEL 2020-11-16 06:32:00 Sujata Grimes MD BLOOD UREA NITROGEN 2020-11-16 06:32:00 Sujata Grimes MD Jeffrey son ELECTROLYTE PANEL 2020-11-16 06:32:00 Sujata Grimes MD SERUM CREATININE 2020-11-16 06:32:00 Sujata Grimes MD .GLOMERULAR FILTRATION RATE 2020-11-16 06:32:00 Sujata Grimes MD CALCIUM IONIZED, VENOUS 2020-11-16 06:32:00 Sujata Grimes MD BASIC METABOLIC PANEL, 2020-11-15 19:04:00 Adam Benson MD CALCIUM IONIZED MAGNESIUM LEVEL 2020-11-15 19:04:00 Adam Benson MD PHOSPHORUS LEVEL 2020-11-15 19:04:00 Adam Benson MD GLUCOSE LEVEL 2020-11-15 19:04:00 Belle Medellin MD BLOOD UREA NITROGEN 2020-11-15 19:04:00 Belle Medellin MD [facility] ELECTROLYTE PANEL 2020-11-15 19:04:00 Belle Medellin MD SERUM CREATININE 2020-11-15 19:04:00 Belle Medellin MD .GLOMERULAR FILTRATION RATE 2020-11-15 19:04:00 Belle Medellin MD CALCIUM IONIZED, VENOUS 2020-11-15 19:04:00 Belle Medlelin MD URINE CULTURE 2020-11-15 18:09:00 Adam Benson MD CSF CELL COUNT 2020-11-15 18:09:00 Louisa Rowan MD CSF CULTURE 2020-11-15 18:09:00 Louisa Rowan MD GLUCOSE CEREBROSPINAL FLUID 2020-11-15 18:09:00 Louisa Rowan MD PROTEIN CEREBROSPINAL FLUID 2020-11-15 18:09:00 Louisa Rowan MD URINALYSIS WITH MICROSCOPIC 2020-11-15 18:09:00 Adam Benson MD IF INDICATED URINALYSIS MICROSCOPIC 2020-11-15 18:09:00 Belle Medellin MD VANCOMYCIN LEVEL TROUGH 2020-11-15 14:19:00 Janiya Moe MD BASIC METABOLIC PANEL, 2020-11-15 06:50:00 Mitch Villalobos MD CALCIUM IONIZED MAGNESIUM LEVEL 2020-11-15 06:50:00 Belle Medellin MD PHOSPHORUS LEVEL 2020-11-15 06:50:00 Belle Medellin MD GLUCOSE LEVEL 2020-11-15 06:50:00 Sujata Grimes MD BLOOD UREA NITROGEN 2020-11-15 06:50:00 Sujata Grimes MD [facility] ELECTROLYTE PANEL 2020-11-15 06:50:00 Sujata Grimes MD SERUM CREATININE 2020-11-15 06:50:00 Sujata Grimes MD .GLOMERULAR FILTRATION RATE 2020-11-15 06:50:00 Sujata Grimes MD CALCIUM IONIZED, VENOUS 2020-11-15 06:50:00 Sujata Grimes MD MRI BRAIN W WO CONTRAST 2020-11-14 23:51:33 Koby West MD COMPLETE BLOOD COUNT W/ 2020-11-14 06:08:00 Koby Palacios MD DIFFERENTIAL BASIC METABOLIC PANEL, 2020-11-14 06:08:00 Mitch Villalobos MD CALCIUM IONIZED MAGNESIUM LEVEL 2020-11-14 06:08:00 Belle Medellin MD PHOSPHORUS LEVEL 2020-11-14 06:08:00 Belle Medellin MD Results CBC 2020-11-14 06:08:00 Sujata Grimes MD MANUAL DIFFERENTIAL 2020-11-14 06:08:00 Sujata Grimes MD [facility] GLUCOSE LEVEL 2020-11-14 06:08:00 Sujata Grimes MD BLOOD UREA NITROGEN 2020-11-14 06:08:00 Sujata Grimes MD [facility] ELECTROLYTE PANEL 2020-11-14 06:08:00 Sujata Grimes MD SERUM CREATININE 2020-11-14 06:08:00 Sujata Grimes MD .GLOMERULAR FILTRATION RATE 2020-11-14 06:08:00 Sujata Grimes MD CALCIUM IONIZED, VENOUS 2020-11-14 06:08:00 Sujata Grimes MD CSF CELL COUNT 2020-11-13 23:36:00 Louisa Rowan MD CSF CULTURE 2020-11-13 23:36:00 Louisa Rowan MD GLUCOSE CEREBROSPINAL FLUID 2020-11-13 23:36:00 Louisa Rowan MD PROTEIN CEREBROSPINAL FLUID 2020-11-13 23:36:00 Louisa Rowan MD COMPLETE BLOOD COUNT W/ 2020-11-13 23:24:00 Louisa Rowan MD DIFFERENTIAL BASIC METABOLIC PANEL, 2020-11-13 23:24:00 Louisa Rowan MD CALCIUM IONIZED Results CBC 2020-11-13 23:24:00 Janiya Moe MD MANUAL DIFFERENTIAL 2020-11-13 23:24:00 Janiya Moe MD GLUCOSE LEVEL 2020-11-13 23:24:00 Janiya Moe MD Jameelclarissa galarza BLOOD UREA NITROGEN 2020-11-13 23:24:00 Janiya Moe MD ELECTROLYTE PANEL 2020-11-13 23:24:00 Janiya Moe MD SERUM CREATININE 2020-11-13 23:24:00 Janiya Moe MD And erson .GLOMERULAR FILTRATION RATE 2020-11-13 23:24:00 Parul Moe MD CALCIUM IONIZED, VENOUS 2020-11-13 23:24:00 Janiya Moe MD POC GLUCOSE SCREEN 2020-11-13 22:21:00 Janiya Moe MD BASIC METABOLIC PANEL, 2020-11-13 09:16:00 Mitch Villalobos MD CALCIUM IONIZED PREALBUMIN 2020-11-13 09:16:00 Koby Palacios MD GLUCOSE LEVEL 2020-11-13 09:16:00 Sujata Grimes MD BLOOD UREA NITROGEN 2020-11-13 09:16:00 Sujata Grimes MD Jeffrey son ELECTROLYTE PANEL 2020-11-13 09:16:00 Sujata Grimes MD SERUM CREATININE 2020-11-13 09:16:00 Sujata Grimes MD .GLOMERULAR FILTRATION RATE 2020-11-13 09:16:00 Sujata Grimes MD CALCIUM IONIZED, VENOUS 2020-11-13 09:16:00 Sujata Grimes MDrsbrooklynn POC GLUCOSE SCREEN 2020-11-12 22:38:00 Janiya Moe MD SODIUM LEVEL 2020-11-12 19:19:00 Koby Palacios MD SODIUM LEVEL 2020-11-12 12:36:00 Landy Schuler MD on POC GLUCOSE SCREEN 2020-11-12 10:35:[address] HEAD WO CONTRAST 2020-11-12 09:35:00 Koby Palacios MD [facility] COMPLETE BLOOD COUNT W/ 2020-11-12 05:47:00 Koby Palacios MD DIFFERENTIAL BASIC METABOLIC PANEL, 2020-11-12 05:47:00 Mitch Villalobos MD CALCIUM IONIZED Results CBC 2020-11-12 05:47:00 Sujata Grimes MD MANUAL DIFFERENTIAL 2020-11-12 05:47:00 Sujata Grimes MD Jeffreypb garcia GLUCOSE LEVEL 2020-11-12 05:47:00 Sujata Grimes MD BLOOD UREA NITROGEN 2020-11-12 05:47:00 Sujata Grimes MD [facility] ELECTROLYTE PANEL 2020-11-12 05:47:00 Sujata Grimes MD SERUM CREATININE 2020-11-12 05:47:00 Sujata Grimes MD .GLOMERULAR FILTRATION RATE 2020-11-12 05:47:00 Sujata Grimes MD CALCIUM IONIZED, VENOUS 2020-11-12 05:47:00 Sujata Grimes MD POC GLUCOSE SCREEN 2020-11-12 04:46:00 Janiya Moe MD POC GLUCOSE SCREEN 2020-11-11 10:54:00 Janiya Moe MD BASIC METABOLIC PANEL, 2020-11-11 06:49:00 Mitch Villalobos MD CALCIUM IONIZED GLUCOSE LEVEL 2020-11-11 06:49:00 Sujata Grimes MD BLOOD UREA NITROGEN 2020-11-11 06:49:00 Sujata Grimes MD [facility] ELECTROLYTE PANEL 2020-11-11 06:49:00 Sujata Grimes MD Andsheldon stevenson SERUM CREATININE 2020-11-11 06:49:00 Sujata Grimes MD .GLOMERULAR FILTRATION RATE 2020-11-11 06:49:00 Sujata Grimes MD CALCIUM IONIZED, VENOUS 2020-11-11 06:49:00 Sujata Grimes MDrson POC GLUCOSE SCREEN 2020-11-11 04:49:00 Janiya Moe MDrson POC GLUCOSE SCREEN 2020-11-10 22:18:00 Janiya Moe MDrson POC GLUCOSE SCREEN 2020-11-10 16:49:[address] HEAD WO CONTRAST 2020-11-10 13:06:00 Koby Palacioser jose COMPLETE BLOOD COUNT W/ 2020-11-10 06:50:00 Koby Palacios MD DIFFERENTIAL BASIC METABOLIC PANEL, 2020-11-10 06:50:00 Mitch Villalobos MD CALCIUM IONIZED Results CBC 2020-11-10 06:50:00 Sujata Grimes MD MANUAL DIFFERENTIAL 2020-11-10 06:50:00 Sujata Grimes MD [facility] GLUCOSE LEVEL 2020-11-10 06:50:00 Sujata Grimes MD BLOOD UREA NITROGEN 2020-11-10 06:50:00 Sujata Grimes MD [facility] ELECTROLYTE PANEL 2020-11-10 06:50:00 Sujata Grimes MD SERUM CREATININE 2020-11-10 06:50:00 Sujata Grimes MD .GLOMERULAR FILTRATION RATE 2020-11-10 06:50:00 Sujata Grimes MD CALCIUM IONIZED, VENOUS 2020-11-10 06:50:00 Sujata Grimes MD nderson POC GLUCOSE SCREEN 2020-11-10 04:42:00 Janiya Moe MD POC GLUCOSE SCREEN 2020-11-09 14:10:00 Janiya Moe MD POC GLUCOSE SCREEN 2020-11-09 10:41:00 Janiya Moe MD BASIC METABOLIC PANEL, 2020-11-09 07:25:00 Mitch Villalobos MD CALCIUM IONIZED GLUCOSE LEVEL 2020-11-09 07:25:00 Sujata Grimes MD BLOOD UREA NITROGEN 2020-11-09 07:25:00 Sujata Grimes MD Jeffrey son ELECTROLYTE PANEL 2020-11-09 07:25:00 Sujata Grimes MD n SERUM CREATININE 2020-11-09 07:25:00 Sujata Grimes MD .GLOMERULAR FILTRATION RATE 2020-11-09 07:25:00 Sujata Grimes MD CALCIUM IONIZED, VENOUS 2020-11-09 07:25:00 Sujata Grimes MD POC GLUCOSE SCREEN 2020-11-09 04:14:00 Janiya Moe MD POC GLUCOSE SCREEN 2020-11-08 22:57:00 Janiya Moe MD POC GLUCOSE SCREEN 2020-11-08 15:19:00 Janiya Moe MD GENERAL LABORATORY ADD ON 2020-11-08 08:06:00 Janiya Moe MD TEST COMPLETE BLOOD COUNT W/ 2020-11-08 06:07:00 Louisa Rowan MD DIFFERENTIAL BASIC METABOLIC PANEL, 2020-11-08 06:07:00 Mitch Villalobos MD CALCIUM IONIZED Results CBC 2020-11-08 06:07:00 Janiya Moe MD MANUAL DIFFERENTIAL 2020-11-08 06:07:00 Janiya Moe MD GLUCOSE LEVEL 2020-11-08 06:07:00 Sujata Grimes MD BLOOD UREA NITROGEN 2020-11-08 06:07:00 Sujata Grimes MD Jeffrey son ELECTROLYTE PANEL 2020-11-08 06:07:00 Sujata Grimes MD SERUM CREATININE 2020-11-08 06:07:00 Sujata Grimes MD .GLOMERULAR FILTRATION RATE 2020-11-08 06:07:00 Sujata Grimes MD CALCIUM IONIZED, VENOUS 2020-11-08 06:07:00 Sujata Grimes MD MAGNESIUM LEVEL 2020-11-08 06:07:00 Sujata Grimes MD PHOSPHORUS LEVEL 2020-11-08 06:07:00 Sujata Grimes MD BASIC METABOLIC PANEL, 2020-11-07 19:00:00 Mitch Villalobos MD CALCIUM IONIZED GLUCOSE LEVEL 2020-11-07 19:00:00 Sujata Grimes MD BLOOD UREA NITROGEN 2020-11-07 19:00:00 Sujata Grimes MD [facility] ELECTROLYTE PANEL 2020-11-07 19:00:00 Sujata Grimes MD SERUM CREATININE 2020-11-07 19:00:00 Sujata Grimes MD .GLOMERULAR FILTRATION RATE 2020-11-07 19:00:00 Sujata Grimes MD CALCIUM IONIZED, VENOUS 2020-11-07 19:00:00 Sujata Grimes MD POC GLUCOSE SCREEN 2020-11-07 10:28:00 Janiya Moe MD GENERAL LABORATORY ADD ON 2020-11-07 10:17:00 Janiya Moe MD TEST COMPLETE BLOOD COUNT W/ 2020-11-07 06:11:00 Louisa Rowan MD DIFFERENTIAL BASIC METABOLIC PANEL, 2020-11-07 06:11:00 Mitch Villalobos MD CALCIUM IONIZED Results CBC 2020-11-07 06:11:00 Janiya Moe MD MANUAL DIFFERENTIAL 2020-11-07 06:11:00 Janiya Moe MD GLUCOSE LEVEL 2020-11-07 06:11:00 Sujata Grimes MD BLOOD UREA NITROGEN 2020-11-07 06:11:00 [facility] E[facility]ROL[facility] PANEL 2020-11-07 06:11:00 Sujata Grimes MD SERUM CREATININE 2020-11-07 06:11:00 Sujata Grimes MD .GLOMERULAR FILTRATION RATE 2020-11-07 06:11:00 Sujata Grimes MD CALCIUM IONIZED, VENOUS 2020-11-07 06:11:00 Sujata Grimes MD MAGNESIUM LEVEL 2020-11-07 06:11:00 Sujata Grimes MD PHOSPHORUS LEVEL 2020-11-07 06:11:00 Sujata Grimes MD POC GLUCOSE SCREEN 2020-11-07 04:24:00 Janiya Moe MD POC GLUCOSE SCREEN 2020-11-06 22:24:00 Janiya Moe MD BASIC METABOLIC PANEL, 2020-11-06 20:51:00 Mitch Villalobos MD CALCIUM TOTAL GLUCOSE LEVEL 2020-11-06 20:51:00 Sujata Grimes MD BLOOD UREA NITROGEN 2020-11-06 20:51:00 Sujata Grimes MD [facility] ELECTROLYTE PANEL 2020-11-06 20:51:00 Sujata Grimes MD SERUM CREATININE 2020-11-06 20:51:00 Sujata Grimes MD .GLOMERULAR FILTRATION RATE 2020-11-06 20:51:00 Sujata Grimes MD CALCIUM LEVEL TOTAL 2020-11-06 20:51:00 Sujata Grimes MD [facility] PROTHROMBIN TIME 2020-11-06 17:39:00 Louisa Rowan MD BASIC METABOLIC PANEL, 2020-11-06 09:21:00 Louisa Rowan MD CALCIUM IONIZED COMPLETE BLOOD COUNT W/ 2020-11-06 09:21:00 Louisa Rowan MD DIFFERENTIAL GLUCOSE LEVEL 2020-11-06 09:21:00 Janiya Moe MD BLOOD UREA NITROGEN 2020-11-06 09:21:00 Janiya Moe MD ELECTROLYTE PANEL 2020-11-06 09:21:00 MoeJaniya porras MD SERUM CREATININE 2020-11-06 09:21:00 Janiya Moe MD And erson .GLOMERULAR FILTRATION RATE 2020-11-06 09:21:00 Parul Moe MD CALCIUM IONIZED, VENOUS 2020-11-06 09:21:00 Janiya Moe MD Results CBC 2020-11-06 09:21:00 Janiya Moe MD Jameel rsbrooklynn MANUAL DIFFERENTIAL 2020-11-06 09:21:00 Janiya Moe MD BASIC METABOLIC PANEL, 2020-11-05 10:01:00 Louisa Rowan MD CALCIUM IONIZED COMPLETE BLOOD COUNT W/ 2020-11-05 10:01:00 Louisa Rowan MDrsbrooklynn DIFFERENTIAL GLUCOSE LEVEL 2020-11-05 10:01:00 Janiya Moe MD Jameelclarissa galarza BLOOD UREA NITROGEN 2020-11-05 10:01:00 Janiya Moe MD ELECTROLYTE PANEL 2020-11-05 10:01:00 Janiya Moe MD SERUM CREATININE 2020-11-05 10:01:00 Janiya Moe MD And erson .GLOMERULAR FILTRATION RATE 2020-11-05 10:01:00 Parul Moe MD CALCIUM IONIZED, VENOUS 2020-11-05 10:01:00 Janiya Moe MD Results CBC 2020-11-05 10:01:00 Janiya Moe MD Jameel rsbrooklynn MANUAL DIFFERENTIAL 2020-11-05 10:01:[address] HEAD WO CONTRAST 2020-11-05 03:43:01 Grecia Herrera MD Jameelclarissa galarza COMPLETE BLOOD COUNT W/ 2020-11-05 03:25:00 Miguel Nuno MD DIFFERENTIAL COMPREHENSIVE METABOLIC PANEL 2020-11-05 03:25:00 Suzette Nuno MAGNESIUM LEVEL 2020-11-05 03:25:00 Miguel Nuno MD PHOSPHORUS LEVEL 2020-11-05 03:25:00 Miguel Nuno MD PROTHROMBIN TIME 2020-11-05 03:25:00 Miguel Nuno MD PARTIAL THROMBOPLASTIN TIME 2020-11-05 03:25:00 Miguel Nuno MD TYPE AND SCREEN 2020-11-05 03:25:00 Miguel Nuno MD Results CBC 2020-11-05 03:25:00 Miguel Nuno MD MANUAL DIFFERENTIAL 2020-11-05 03:25:00 Miguel Nuno MD [facility] GLUCOSE LEVEL 2020-11-05 03:25:00 Miguel Nuno MD BLOOD UREA NITROGEN 2020-11-05 03:25:00 Miguel Nuno MD [facility] ELECTROLYTE PANEL 2020-11-05 03:25:00 Miguel uNno MD SERUM CREATININE 2020-11-05 03:25:00 Miguel Nuno MD .GLOMERULAR FILTRATION RATE 2020-11-05 03:25:00 Miguel Nuno MD CALCIUM LEVEL TOTAL 2020-11-05 03:25:00 Miguel Nuno MD [facility] ALBUMIN LEVEL 2020-11-05 03:25:00 Miguel Nuno MD ALKALINE PHOSPHATASE 2020-11-05 03:25:00 Miguel Nuno MD ALANINE AMINOTRANSFERASE 2020-11-05 03:25:00 Miguel Nuno MD ASPARTATE AMINOTRANSFERASE 2020-11-05 03:25:00 Miguel Nuno TOTAL PROTEIN 2020-11-05 03:25:00 Miguel Nuno MD FRACTIONATED BILIRUBIN 2020-11-05 03:25:00 Miguel Nuno MD An derson ABORH 2020-11-05 03:25:00 Miguel Nuno MD ANTIBODY SCREEN 2020-11-05 03:25:00 Miguel Nuno MD CLOT EXPIRATION DATE 2020-11-05 03:25:00 Miguel Nuno MD TMP INTERPRETATION ANTIBODY 2020-11-05 03:25:00 Miguel Nuno MD SCREEN NEGATIVE INFLUENZA A/B + COVID-19 2020-11-05 02:43:00 Miguel Nuno MD ASYMPTOMATIC-L COMPLETE BLOOD COUNT W/ 2020-10-02 17:22:00 Grecia Herrera MD DIFFERENTIAL SODIUM LEVEL 2020-10-02 17:22:00 Brandyn Kessler MD on Results CBC 2020-10-02 17:22:00 Janiya Moe MD Jameel rson MANUAL DIFFERENTIAL 2020-10-02 17:22:00 Janiya Moe MD SODIUM LEVEL 2020-10-02 11:40:00 Brandyn Kessler MD on BASIC METABOLIC PANEL, 2020-10-02 05:51:00 Grecia Herrera MD CALCIUM IONIZED MAGNESIUM LEVEL 2020-10-02 05:51:00 Grecia Herrera MD PHOSPHORUS LEVEL 2020-10-02 05:51:00 Grecia Herrera MD COMPLETE BLOOD COUNT W/ 2020-10-02 05:51:00 Grecia Herrera MD DIFFERENTIAL GLUCOSE LEVEL 2020-10-02 05:51:00 Janiya Moe MD Jameel rson BLOOD UREA NITROGEN 2020-10-02 05:51:00 Janiya Moe MD ELECTROLYTE PANEL 2020-10-02 05:51:00 [facility] 2020-10-02 05:51:00 Janiya Moe MD And erson .GLOMERULAR FILTRATION RATE 2020-10-02 05:51:00 Parul Moe MD CALCIUM IONIZED, VENOUS 2020-10-02 05:51:00 Janiya Moe MD Results CBC 2020-10-02 05:51:00 Janiya Moe MD Jameel rson MANUAL DIFFERENTIAL 2020-10-02 05:51:00 Janiya Moe MD POC GLUCOSE SCREEN 2020-10-02 03:13:00 Janiya Moe MDon SODIUM LEVEL 2020-10-02 00:36:00 Brandyn Kessler MD on POC GLUCOSE SCREEN 2020-10-01 18:30:00 Janiya Moe MDon SODIUM LEVEL 2020-10-01 16:46:00 Brandyn Kessler MD on SODIUM LEVEL 2020-10-01 14:59:00 Janiya Moe MD POC GLUCOSE SCREEN 2020-10-01 12:45:00 Janiya Moe MD BASIC METABOLIC PANEL, 2020-10-01 09:23:00 Grecia Herrera MD CALCIUM IONIZED MAGNESIUM LEVEL 2020-10-01 09:23:00 Grecia Herrera MD PHOSPHORUS LEVEL 2020-10-01 09:23:00 Grecia Herrera MD GLUCOSE LEVEL 2020-10-01 09:23:00 Janiya Moe MD BLOOD UREA NITROGEN 2020-10-01 09:23:00 Janiya Meo MD ELECTROLYTE PANEL 2020-10-01 09:23:00 Janiya Moe MDson SERUM CREATININE 2020-10-01 09:23:00 Janiya Moe MD And erson .GLOMERULAR FILTRATION RATE 2020-10-01 09:23:00 Parul Moe MD CALCIUM IONIZED, VENOUS 2020-10-01 09:23:00 Janiya Moe MD COMPLETE BLOOD COUNT W/ 2020-10-01 09:19:00 Grecia Herrera MD DIFFERENTIAL Results CBC 2020-10-01 09:19:00 Janiya Moe MD MANUAL DIFFERENTIAL 2020-10-01 09:19:00 Janiya Moe MD POC GLUCOSE SCREEN 2020-10-01 04:26:00 Janiya Moe MD POC GLUCOSE SCREEN 2020-10-01 01:44:00 Janiya Moe MD SODIUM LEVEL 2020-09-30 22:39:00 Brandyn Kessler MD on SODIUM LEVEL 2020-09-30 17:15:00 Brandyn Kessler MD on POC GLUCOSE SCREEN 2020-09-30 13:55:00 Janiya Moe MD SODIUM LEVEL 2020-09-30 12:34:00 Roger Szymanski MD SODIUM LEVEL 2020-09-30 09:02:00 Roger Szymanski MD BASIC METABOLIC PANEL, 2020-09-30 06:14:00 Grecia Herrera MD CALCIUM IONIZED MAGNESIUM LEVEL 2020-09-30 06:14:00 Grecia Herrera MD PHOSPHORUS LEVEL 2020-09-30 06:14:00 Grecia Herrera MD COMPLETE BLOOD COUNT W/ 2020-09-30 06:14:00 Grecia Herrera MD DIFFERENTIAL SODIUM LEVEL 2020-09-30 06:14:00 Janiya Moe MD Jameel rson GLUCOSE LEVEL 2020-09-30 06:14:00 Janiya Moe MD Jameel michell BLOOD UREA NITROGEN 2020-09-30 06:14:00 Janiya Moe MD ELECTROLYTE PANEL 2020-09-30 06:14:00 Janiya Moe MD SERUM CREATININE 2020-09-30 06:14:00 Janiya Moe MD And erson .GLOMERULAR FILTRATION RATE 2020-09-30 06:14:00 Parul Moe MD CALCIUM IONIZED, VENOUS 2020-09-30 06:14:00 Janiya Moe MD Results CBC 2020-09-30 06:14:00 Janiya Moe MD Jameel rson MANUAL DIFFERENTIAL 2020-09-30 06:14:00 Janiya Moe MD COMPLETE BLOOD COUNT W/ 2020-09-30 06:08:00 Grecia Herrera MD DIFFERENTIAL Results CBC 2020-09-30 06:08:00 Janiya Moe MD Jameel rson MANUAL DIFFERENTIAL 2020-09-30 06:08:00 Janiya Moe MD POC GLUCOSE SCREEN 2020-09-30 04:18:00 Janiya Moe MD SODIUM LEVEL 2020-09-30 01:34:00 Roger Szymanski MD SODIUM URINE 2020-09-29 22:05:00 Brandyn Kessler MD on OSMOLALITY URINE 2020-09-29 22:05:00 Brandyn Kessler MD son URINALYSIS WITH MICROSCOPIC 2020-09-29 22:05:00 Elizabeth Kessler MD IF INDICATED URIC ACID 2020-09-29 21:58:00 Roger Szymanski MD SODIUM LEVEL 2020-09-29 21:58:00 Roger Szymanski MD OSMOLALITY 2020-09-29 18:11:00 Brandyn Kessler MD on US LEG VENOUS DOPPLER 2020-09-29 16:34:37 Landy Schuler MD BILATERAL BLOODCULTURE 2020-09-29 15:49:00 Landy Schuler MD on SODIUM LEVEL 2020-09-29 15:49:00 Landy Schuler MD on XR CHEST 1 VW 2020-09-29 13:57:16 Landy Schuler MD on OSCILLATORY PEP 2020-09-29 12:38:27 Landy Schuler MD on BASIC METABOLIC PANEL, 2020-09-29 10:41:00 Grecia Herrera MDrson CALCIUM IONIZED BASIC METABOLIC PANEL, 2020-09-29 10:41:00 Grecia Herrera MD CALCIUM TOTAL CALCIUM IONIZED, VENOUS 2020-09-29 10:41:00 Janiya Moe MD GLUCOSE LEVEL 2020-09-29 10:41:00 Janiya Moe MD Jameel rson BLOOD UREA NITROGEN 2020-09-29 10:41:00 Janiya Moe MD ELECTROLYTE PANEL 2020-09-29 10:41:00 Janiya Moe MD SERUM CREATININE 2020-09-29 10:41:00 Janiya Moe MD And erson .GLOMERULAR FILTRATION RATE 2020-09-29 10:41:00 Parul Moe MD CALCIUM LEVEL TOTAL 2020-09-29 10:41:00 Janiya Moe MD MAGNESIUM LEVEL 2020-09-29 10:41:00 Janiya Moe MD Jameel rson PHOSPHORUS LEVEL 2020-09-29 10:41:00 Janiya Moe MD And erson COMPLETE BLOOD COUNT W/ 2020-09-29 10:35:00 Grecia Herrera MD DIFFERENTIAL Results CBC 2020-09-29 10:35:00 Janiya Moe MD MANUAL DIFFERENTIAL 2020-09-29 10:35:00 Janiya Moe MD POC GLUCOSE SCREEN 2020-09-29 04:23:00 Janiya Moe MD POC GLUCOSE SCREEN 2020-09-29 00:47:00 Janiya Moe MD SODIUM URINE 2020-09-28 21:44:00 Brandyn Kessler MD on OSMOLALITY URINE 2020-09-28 21:44:00 Brandyn Kessler MD son URINALYSIS WITH MICROSCOPIC 2020-09-28 21:44:00 Elizabeth Kessler MD IF INDICATED POC GLUCOSE SCREEN 2020-09-28 18:11:00 Janiya Moe MDrson OSMOLALITY 2020-09-28 17:13:00 Brandyn Kessler MD on BASIC METABOLIC PANEL, 2020-09-28 17:13:00 Brandyn Kessler MD CALCIUM TOTAL GLUCOSE LEVEL 2020-09-28 17:13:00 Janiya Moe MD Jameelclarissa galarza BLOOD UREA NITROGEN 2020-09-28 17:13:00 Janiya Moe MD ELECTROLYTE PANEL 2020-09-28 17:13:00 Janiya Moe MD SERUM CREATININE 2020-09-28 17:13:00 Janiya Moe MD And erson .GLOMERULAR FILTRATION RATE 2020-09-28 17:13:00 Parul Moe MD CALCIUM LEVEL TOTAL 2020-09-28 17:13:00 Janiya Moe MD BASIC METABOLIC PANEL, 2020-09-28 10:46:00 Grecia Herrera MD CALCIUM IONIZED MAGNESIUM LEVEL 2020-09-28 10:46:00 Grecia Herrera MD PHOSPHORUS LEVEL 2020-09-28 10:46:00 Grecia Herrera MD n GLUCOSE LEVEL 2020-09-28 10:46:00 Janiya Moe MD Jameel rson BLOOD UREA NITROGEN 2020-09-28 10:46:00 Janiya Moe MD ELECTROLYTE PANEL 2020-09-28 10:46:00 Janiya Moe MD SERUM CREATININE 2020-09-28 10:46:00 Janiya Moe MD And yajairaon .GLOMERULAR FILTRATION RATE 2020-09-28 10:46:00 Parul Moe MD CALCIUM LEVEL TOTAL 2020-09-28 10:46:00 Janiya Moe MD COMPLETE BLOOD COUNT W/ 2020-09-28 10:43:00 Grecia Herrera MD DIFFERENTIAL CALCIUM IONIZED, VENOUS 2020-09-28 10:43:00 Janiya Moe MD Results CBC 2020-09-28 10:43:00 Janiya Moe MD MANUAL DIFFERENTIAL 2020-09-28 10:43:00 Janiya Moe MD POC GLUCOSE SCREEN 2020-09-28 03:15:00 Janiya Moe MD POC GLUCOSE SCREEN 2020-09-27 19:58:00 Janiya Moe MD MRI BRAIN W WO CONTRAST 2020-09-27 14:11:00 Grecia Herrera MD POC GLUCOSE SCREEN 2020-09-27 12:54:00 Janiya Moe MD BASIC METABOLIC PANEL, 2020-09-27 11:36:00 Grecia Herrera MD CALCIUM IONIZED MAGNESIUM LEVEL 2020-09-27 11:36:00 Grecia Herrera MD PHOSPHORUS LEVEL 2020-09-27 11:36:00 Grecia Herrera MD COMPLETE BLOOD COUNT W/ 2020-09-27 11:36:00 Grecia Herrera MD DIFFERENTIAL GLUCOSE LEVEL 2020-09-27 11:36:00 Janiya Moe MD BLOOD UREA NITROGEN 2020-09-27 11:36:00 Janiya Moe MD ELECTROLYTE PANEL 2020-09-27 11:36:00 Janiya Moe MD SERUM CREATININE 2020-09-27 11:36:00 Janiya Moe MD And erson .GLOMERULAR FILTRATION RATE 2020-09-27 11:36:00 Parul Moe MD CALCIUM IONIZED, VENOUS 2020-09-27 11:36:00 Janiya Moe MD Results CBC 2020-09-27 11:36:00 Janiya Moe MD Jameel rson MANUAL DIFFERENTIAL 2020-09-27 11:36:00 Janiya Moe MD POC GLUCOSE SCREEN 2020-09-27 03:51:00 Janiya Moe MD POC GLUCOSE SCREEN 2020-09-27 00:38:00 Janiya Moe MD POC GLUCOSE SCREEN 2020-09-27 00:02:00 Janiya Moe MD POC GLUCOSE SCREEN 2020-09-26 19:19:00 Janiya Moe MD POC GLUCOSE SCREEN 2020-09-26 14:07:00 Janiya Moe MD BASIC METABOLIC PANEL, 2020-09-26 06:03:00 Grecia Herrera MD CALCIUM IONIZED MAGNESIUM LEVEL 2020-09-26 06:03:00 Grecia Herrera MD PHOSPHORUS LEVEL 2020-09-26 06:03:00 Grecia Herrera MD Andsheldon n GLUCOSE LEVEL 2020-09-26 06:03:00 Janiya Moe MD Jameelclarissa galarza BLOOD UREA NITROGEN 2020-09-26 06:03:00 Janiya Moe MD ELECTROLYTE PANEL 2020-09-26 06:03:00 Janiya Moe MD SERUM CREATININE 2020-09-26 06:03:00 Janiya Moe MD And erson .GLOMERULAR FILTRATION RATE 2020-09-26 06:03:00 Parul Moe MD BASIC METABOLIC PANEL, 2020-09-26 06:01:00 Grecia Herrera MD CALCIUM TOTAL CALCIUM IONIZED, VENOUS 2020-09-26 06:01:00 Janiya Moe MD GLUCOSE LEVEL 2020-09-26 06:01:00 Efrain Juárez MD BLOOD UREA NITROGEN 2020-09-26 06:01:00 Efrain Juárez MD ELECTROLYTE PANEL 2020-09-26 06:01:00 Efrain Juárez MD SERUM CREATININE 2020-09-26 06:01:00 Efrain Juárez MD .GLOMERULAR FILTRATION RATE 2020-09-26 06:01:00 Efrain Juárez MD CALCIUM LEVEL TOTAL 2020-09-26 06:01:00 Efrain Juárez MD COMPLETE BLOOD COUNT W/ 2020-09-26 05:58:00 Grecia Herrera MD DIFFERENTIAL Results CBC 2020-09-26 05:58:00 Janiya Moe MD MANUAL DIFFERENTIAL 2020-09-26 05:58:00 Janiya Moe MD POC GLUCOSE SCREEN 2020-09-26 02:51:00 Janiya Moe MD PATHOLOGY SURGICAL 2020-09-25 15:59:48 Janiya Moe MD INTERPRETATION OR ARTERIAL BLOOD GAS PLUS 2020-09-25 15:07:00 Isa Strickland INFRATENTORIAL CRANIECTOMY 2020-09-25 11:23:00 Janiya Moe MD FOR EXCISION OF BRAIN TUMOR BASIC METABOLIC PANEL, 2020-09-25 09:01:00 Grecia Herrera MD CALCIUM TOTAL COMPLETE BLOOD COUNT W/ 2020-09-25 09:01:00 Grecia Herrera MD DIFFERENTIAL FREE THYROXINE 2020-09-25 09:01:00 Radha Genao MD MAGNESIUM LEVEL 2020-09-25 09:01:00 Radha Genao MD PROTHROMBIN TIME 2020-09-25 09:01:00 Radha Genao MD PARTIAL THROMBOPLASTIN TIME 2020-09-25 09:01:00 Radha Genao MD GLUCOSE LEVEL 2020-09-25 09:01:00 Efrain Juárez MD BLOOD UREA NITROGEN 2020-09-25 09:01:00 Efrain Juárez MD ELECTROLYTE PANEL 2020-09-25 09:01:00 Efrain Juárez MD SERUM CREATININE 2020-09-25 09:01:00 Efrain Juárez MD .GLOMERULAR FILTRATION RATE 2020-09-25 09:01:00 Efrain Juárez MD CALCIUM LEVEL TOTAL 2020-09-25 09:01:00 Efrain Juárez MD Jameelclarissa Damon Results CBC 2020-09-25 09:01:00 Efrain Juárez MD MANUAL DIFFERENTIAL 2020-09-25 09:01:00 Efrain Juárez MD US LEG VENOUS DOPPLER 2020-09-24 17:16:41 Grecia Herrera MD derson BILATERAL POC GLUCOSE SCREEN 2020-09-24 12:57:00 Devon Lin MDrsbrooklynn BASIC METABOLIC PANEL, 2020-09-24 10:43:00 Grecia Herrera MD CALCIUM TOTAL COMPLETE BLOOD COUNT W/ 2020-09-24 10:43:00 Grecia Herrera MD DIFFERENTIAL HEMOGLOBIN A1C 2020-09-24 10:43:00 Radha Genao MD THYROID STIMULATING HORMONE 2020-09-24 10:43:00 Radha Genao MD TYPE AND SCREEN 2020-09-24 10:43:00 Brandyn Kessler MD on GLUCOSE LEVEL 2020-09-24 10:43:00 Efrain Juárez MD BLOOD UREA NITROGEN 2020-09-24 10:43:00 Efrain Juárez MD ELECTROLYTE PANEL 2020-09-24 10:43:00 Efrain Juárez MD SERUM CREATININE 2020-09-24 10:43:00 Efrain Juárez MD .GLOMERULAR FILTRATION RATE 2020-09-24 10:43:00 Efrain Juárez MD CALCIUM LEVEL TOTAL 2020-09-24 10:43:00 Efrain Juárez MD Jameelclarissa Damon Results CBC 2020-09-24 10:43:00 Efrain Juárez MD MANUAL DIFFERENTIAL 2020-09-24 10:43:00 Efrain Juárez MD ABORH 2020-09-24 10:43:00 Janiya Moe MD Jameelclarissa galarza ANTIBODY SCREEN 2020-09-24 10:43:00 Janiya Moe MD Jameel rsbrooklynn CLOT EXPIRATION DATE 2020-09-24 10:43:00 Janiya Moe MD TMP INTERPRETATION ANTIBODY 2020-09-24 10:43:00 Parul Moe MD SCREEN NEGATIVE CT CHEST ABDOMEN PELVIS W 2020-09-24 00:20:22 Radha Genao MD CONTRAST XR CHEST 1 VW PORTABLE 2020-09-23 16:56:41 Brandyn Kessler MD POC GLUCOSE SCREEN 2020-09-23 15:06:00 Devon Lin MDrson MAGNESIUM LEVEL 2020-09-23 11:19:00 Alan Paul MD on PHOSPHORUS LEVEL 2020-09-23 11:19:00 Alan Paul MD Jeffrey son BASIC METABOLIC PANEL, 2020-09-23 11:19:00 Grecia Herrera MD CALCIUM TOTAL COMPLETE BLOOD COUNT W/ 2020-09-23 11:19:00 Grecia Herrera MD DIFFERENTIAL GLUCOSE LEVEL 2020-09-23 11:19:00 Efrain Juárez MD BLOOD UREA NITROGEN 2020-09-23 11:19:00 Efrain Juárez MD ELECTROLYTE PANEL 2020-09-23 11:19:00 Efrain Juárez MD Marisol SERUM CREATININE 2020-09-23 11:19:00 Efrain Juárez MD .GLOMERULAR FILTRATION RATE 2020-09-23 11:19:00 Efrain Juárez MD CALCIUM LEVEL TOTAL 2020-09-23 11:19:00 Efrain Juárez MD Results CBC 2020-09-23 11:19:00 Efrain Juárez MD MANUAL DIFFERENTIAL 2020-09-23 11:19:00 Efrain Juárez MD POC GLUCOSE SCREEN 2020-09-23 02:46:00 Efrain Juárez MD EKG, 12-LEAD (PORTABLE) 2020-09-23 00:00:00 Yomaira Orozco MD MRI BRAIN W WO CONTRAST 2020-09-22 20:11:44 Efrain Juárez MD MRI BRAIN WO CONTRAST 2020-09-22 10:16:34 Louisa Rowan MD And erson CONFIRM ABORH TYPE 2020-09-22 07:57:00 Alan Paul MD And ersbrooklynn INFLUENZA A/B + COVID-19 2020-09-22 07:22:00 Alan Paul MD ASYMPTOMATIC-L COMPLETE BLOOD COUNT W/ 2020-09-22 07:21:00 Alan Paul DIFFERENTIAL COMPREHENSIVE METABOLIC PANEL 2020-09-22 07:21:00 Tristan Paul MD MAGNESIUM LEVEL 2020-09-22 07:21:00 Alan Paul MD on PHOSPHORUS LEVEL 2020-09-22 07:21:00 Alan Paul MD Jeffrey jose PROTHROMBIN TIME 2020-09-22 07:21:00 Alan Paul MD Jeffreypb garcia PARTIAL THROMBOPLASTIN TIME 2020-09-22 07:21:00 Alan Paul MD Results CBC 2020-09-22 07:21:00 Alan Paul MD on MANUAL DIFFERENTIAL 2020-09-22 07:21:00 Alan Paul MD GLUCOSE LEVEL 2020-09-22 07:21:00 Alan Paul MD on BLOOD UREA NITROGEN 2020-09-22 07:21:00 Alan Paul MD ELECTROLYTE PANEL 2020-09-22 07:21:00 Alan Paul MD SERUM CREATININE 2020-09-22 07:21:00 Alan Paul MD [facility] .GLOMERULAR FILTRATION RATE 2020-09-22 07:21:00 Alan Paul MD CALCIUM LEVEL TOTAL 2020-09-22 07:21:00 Alan Paul MDson ALBUMIN LEVEL 2020-09-22 07:21:00 Alan Paul MD on ALKALINE PHOSPHATASE 2020-09-22 07:21:00 Alan Paul MD ALANINE AMINOTRANSFERASE 2020-09-22 07:21:00 Alan Paul MD ASPARTATE AMINOTRANSFERASE 2020-09-22 07:21:00 Alan Paul MD TOTAL PROTEIN 2020-09-22 07:21:00 Alan Paul MD on FRACTIONATED BILIRUBIN 2020-09-22 07:21:00 Alan Paul MD Plan of Care Planned Activity Planned Date Details Comments Source Encounters Start End Encounter Admission Attending Care Care Encounter Source Date/Time Date/Time Type Type Clinicians Facility Department ID 2020-09-22 Inpatient EL SYDNEE, MDA MDA [id number] 16:00:20 EFRAIN Dunlaperso n 2020-11-04 2020-12-04 Inpatient ER SNEHAAMBER Neurosurger 10 [id number] 21:07:00 14:06:00 JANIYA Donahue o n 2020-12-03 2020-12-03 Inpatient EL SANJUANITA, MDA MDA [id number] 12:16:26 12:16:28 KANDI Jorgensen rso n 2020-12-02 2020-12-02 Inpatient EL SANJUANITA, MDA MDA [id number] 10:31:08 10:31:10 KANDI Jorgensen rso n 2020-12-02 2020-12-02 Inpatient EL MOE, MDA MDA [id number] 09:54:04 10:17:18 JANIYA Dunlapers o elva 2020-12-01 2020-12-01 Inpatient EL SANJUANITA, MDA MDA [id number] 10:25:50 10:25:54 KANDI Jorgensen rso n 2020-11-29 2020-11-29 Inpatient EL MOE, MDA MDA [id number] 08:11:06 08:27:46 JANIYA stevenson 2020-11-28 2020-11-28 Inpatient EL MOE, MDA MDA [id number] MD 08:50:49 08:53:52 JANIYA Donahue o n 2020-11-27 2020-11-27 Inpatient EL SANJUANITA, MDA MDA [id number] MD 17:31:35 17:31:38 KANDI Jorgensen yoandy n 2020-11-20 2020-11-20 Inpatient EL MDA MDA [id number] MD 19:43:38 19:56:47 Godfrey o n 2020-11-18 2020-11-18 Inpatient EL MDA MDA [id number] MD 20:41:01 20:54:27 Godfrey o n 2020-11-17 2020-11-17 Inpatient EL NAKITA, MDA MDA [id number] MD 10:16:22 10:16:24 ALIA stevenson 2020-11-16 2020-11-16 Inpatient EL SNEHA, MDA MDA [id number] MD 17:48:02 18:33:51 JANIYA stevenson 2020-11-12 2020-11-12 Inpatient EL SNEHA, MDA MDA [id number] MD 22:33:12 22:44:57 JANIYA stevenson 2020-11-11 2020-11-11 Inpatient EL SNEHA, MDA MDA [id number] MD 09:27:25 09:49:32 JANIYA stevenson 2020-11-09 2020-11-09 Inpatient EL NAKITA, MDA MDA [id number] MD 15:16:50 15:16:53 ALIA stevenson 2020-11-04 2020-11-[address] [facility] [id number] 16:42:00 20:21:00 Balaji Hoang [id number] [place] [id number] [place] [id number] 2020-10-09 2020-10-09 Outpatient EL SNEHA, MDA MDA [id number] 12:48:24 12:48:24 JANIYA stevenson 2020-09-22 2020-10-02 Inpatient ER SNEHA MDA Neurosurger 10 [id number] 01:10:00 13:48:00 Geena stevenson 2020-09-29 2020-09-29 Inpatient RACQUEL MOE [facility] [id number] 14:06:50 14:26:20 JANIYA Donahue o n 2020-09-23 2020-09-23 Inpatient RACQUEL HICKMAN [facility] [id number] 17:36:38 18:05:11 ElvaDEVON sajano n 2020-09-22 2020-09-22 Inpatient RACQUEL JUÁREZ [facility]BER [facility] [id number] 19:13:53 19:38:47 EFRAIN Godfrey o n 2020-09-21 2020-09-22 Outpatient V[place], PL PL [id number] 19:32:52 00:33:00 Reeva 00 [place] 2020-09-21 2020-09-21 Emergency E [facility] [id number] [facility] 19:32:00 19:32:00 Results Test Description Test Time Test Comments Results Result Comments Source Prealbumin 2020-12-04 19:43:51 Test Item Value Reference Range Interpretation Comme nts Prealbumin (test code = 6855) 21.8 mg/dL 20.0-40.0 MD DelarosaGlomerular Filtration [id number] 11:58:58 Test Item Value Reference Range Interpretation Comments eGFR-AA (test code 112 See_Comment Normal eG FR: >= 60 = 8062) mL/min/1.73 m2N ote: The eGFR is calculated u sing the CKD-EPI equatio n. The eGFR declines with a ge. eGFR <60 mL/min/1.73 m2 is considered as "decreased". This equation should only be used for patients 18 and older. According to e National [employer] on's Kidney Disease Outcome Quality Initiative (KDO QI) classification and 2012 Kidney Disease Improving Global Outcomes (KDIGO) Clinical Practi ce Guideline, the stage of CK D should be categorized bas ed on estimated GFR. Stage Description GFR mL/min/1.73 m21 Normal or high GFR >=902 Mildly decrease d GFR 60-893a M ildly to moderately decr eased GFR 45-593b Moderat smooth to severely decrea sed GFR 30-444 Severely decreased GFR 15-295 Kid nick failure <15 [Automa bam message] The system MST generated this result tra nsmitted reference range : >=60 mL/min/1.73 sq. m. The reference range was not used to interpret th is result as normal/abnormal . eGFR-DEBBIE (test code 97 See_Comment Normal e GFR: >= 60 = 8063) mL/min/1.73 m2N ote: The eGFR is calculated u sing the CKD-EPI equatio n. The eGFR declines with a ge. eGFR <60 mL/min/1.73 m2 is considered as "decreased". This equation should only be used for patients 18 and older. According to th e National [employer] on's Kidney Disease Outcome Quality Initiative (KDO QI) classification and 2012 Kidney Disease Improving Global Outcomes (KDIGO) Clinical Practi ce Guideline, the stage of CK D should be categorized bas ed on estimated GFR. Stage Description GFR mL/min/1.73 m21 Normal or high GFR >=902 Mildly decrease d GFR 60-893a M ildly to moderately decr eased GFR 45-593b Moderat smooth to severely decrea sed GFR 30-444 Severely decreased GFR 15-295 Kid nick failure <15 [Automa bam message] The system whic h generated this result tra nsmitted reference range : >=60 mL/min/1.73 sq. m. The reference range was not used to interpret th is result as normal/abnormal . MD DelarosaElectrolyte [id number] 11:58:57 Test Item Value Reference Range Interpretation Comments Sodium Lvl (test code = 142 See_Comment [Au tomated message] The 6783) system which ge nerated this result tra nsmitted reference range : 136 - 145 mEq/L. The reference range was not u sed to interpret this result as normal/abnormal . Potassium Lvl (test 3.9 See_Comment [Automa bam message] The code = 6854) system which ge nerated this result tra nsmitted reference range : 3.5 - 5.1 mEq/L. The reference range was not u sed to interpret this result as normal/abnormal . Chloride (test code = 105 See_Comment [Auto mated message] The 8620) system which ge nerated this result tra nsmitted reference range : 98 - 107 mEq/L. The refe rence range was not u sed to interpret this result as normal/abnormal . CO2 (test code = 5227) 24 See_Comment [Aut omated message] The system which ge nerated this result tra nsmitted reference range : 22 - 29 mEq/L. The refe rence range was not u sed to interpret this result as normal/abnormal . Anion Gap (test code = 13 See_Comment [Aut omated message] The 9330) system which ge nerated this result tra nsmitted reference range : 4 - 14 mEq/L. The refe rence range was not u sed to interpret this result as normal/abnormal . MD Delarosa.Serum [id number] 11:58:56 Test Item Value Reference Range Interpretation Comments Creatinine (test code = 5399) 0.76 mg/dL 0.67-1.17 MD [id number] 11:58:54 Test Item Value Reference Range Interpretation Comments BUN (test code = 5055) 5 mg/dL 6-23 L Lab Interpretation (test code = Abnormal 82373-0) MD DelarosaGlucose [id number] 11:58:53 Test Item Value Reference Range Interpretation Comments Glucose Level (test 93 mg/dL 70-99 Effectiv e 01/13/16, the code = 5699) glucose referen ce intervals have been updated based o n [place] [employer] an[place]ieta delines (Standards of M edical Care in Diabete s 2016. Diabetes Care 2 016; 39: S13-S22).Fastin g blood glucose:Normal: 70 99 mg/dLImpaire d fasting glucose (increa sed risk for diabetes or pre-diabetes): 100 125 mg/dLDiabet es mellitus: >/=1 26 mg/dL Random blood glucose:Normal: 70 199 mg/dLNote: Random glucose >100 mg /dL is associated with increased risk for diabetes MD DelarosaMagnesium [id number] 11:58:13 Test Item Value Reference Range Interpretation Comments Magnesium (test code = 6359) 1.7 mg/dL 1.6-2.6 MD DelarosaPhosphorus [id number] 11:58:12 Test Item Value Reference Range Interpretation Comments Phosphorus (test code = 6817) 3.5 mg/dL 2.5-4.5 MD Dela[id number] 11:06:16 Test Item Value Reference Range Interpretation Comments Neutrophil % (test code = 49.4 % 42.0-66.0 29789-1) Lymphocyte % (test code = 29.7 % 24.0-44.0 737-7) Monocyte % (test code = 13.6 % 2.0-7.0 H 744-3) Eosinophil % (test code = 5.5 % 1.0-4.0 H 713-8) Basophil % (test code = 0.9 % 0.0-1.0 707-0) IGRE % (test code = 0.9 % 0.0-0.4 H IGRE % c ount 31888-9) includes Metamyelocytes, Myelocytes, and Promyelocytes. Neutrophil Abs (test code 2.61 K/uL 1.70-7.30 = 753-4) Lymphocyte Abs (test code 1.57 K/uL 1.00-4.80 = 732-8) Monocyte Abs (test code = 0.72 K/uL 0.08-0.70 H 743-5) Eosinophil Abs (test code 0.29 K/uL 0.04-0.40 = 712-0) Basophil Abs (test code = 0.05 K/uL 0.00-0.10 705-4) IG Abs (test code = 0.05 K/uL 0.00-0.04 H 42830-7) Lab Interpretation (test Abnormal code = 41254-8) MD Delarosa.[id number] 11:06:13 Test Item Value Reference Range Interpretation Comments WBC (test code = 5.3 K/uL 4.0-11.0 6690-2) RBC (test code = 789-8) 3.55 See_Comment L [Au tomated message] The system MST generated this result transmitted ref erence range: 4.50 - 6 .00 M/uL. The refer ence range was not u sed to interpret this result as normal/abnor mal. Hgb (test code = 718-7) 11.3 See_Comment L [Au tomated message] The system MST generated this result transmitted ref erence range: 14.0 - 1 8.0 gm/dL. The refe rence range was not u sed to interpret this result as normal/abnor mal. Hct (test code = 32.0 % 40.0-54.0 L 4544-3) MPV (test code = 787-2) 10.5 fL 4.0-10.4 H MCH (test code = 785-6) 31.8 pg 27.0-31.0 H MCHC (test code = 35.3 See_Comment [Automate d message] 786-4) The system MST generated this result transmitted ref erence range: 31.0 - 3 6.0 gm/dL. The refe rence range was not u sed to interpret this result as normal/abnor mal. RDW-SD (test code = 47.6 fL 35.1-46.3 H 83573-7) RDW-CV (test code = 14.5 % 12.0-15.5 788-0) Platelet count (test 175 K/uL 140-440 code = 777-3) INRBC (test code = 0.0 % See_Comment The INRBC (instrument 5974) NRBC) value ref lects the enumeration of nucleated red b lood cells contained in a 200uL sampleof whole blood analyzed by the instrument. Thi s value maydiffer from the NRBC value repo rted in a manual differential,wh ich is based on a 100 cell differential. [Automated mess age] The system MST generated this result transmitted ref erence range: <=0.0. T he reference range was not used to int erpret this result as normal/abnormal . Lab Interpretation Abnormal (test code = 90389-4) MD DelarosaCalcium Ionized, [id number] 10:58:51 Test Item Value Reference Range Interpretation Comments V Ion Ca (test code = 52892-4) 1.18 mmol/L 1.15-1.29 MD DelarosaInfluenza A/B + COVID-19 Asymptomatic- [id number] 06:44:48 Test Item Value Reference Range Interpretation Comments COVID19 Not Detected Not Detected (SARS-CoV-2) (test code = 67836-1) Influenza A (test Not Detected Not Detected code = 40104-8) Influenza B (test Not Detected Not Detected code = 53530-4) COVID19 SARS Inpatient Indication (test Admission code = 61478) Inf AB+Cov19 See Note The yanira SARS- CoV-2 Comment (test & Influenza A/ B code = 76591) nucleic acid t est for use on the chavez s Sweta System is a [employer] tiplex real-time RT-PC R assay intended for the simultaneou s, qualitative det ection and differentia l of SARS-CoV-2 (COVID-19), inf luenza A, and influenz a B viral RNA in nasopharyngeal swabs in transport me joel from patients suspected of noe ving a respiratory inf ection with one of the se viruses or poss ibly exposure to COV ID-19 by a healthcare provider. Resul ts must be interpr eted within the cont ext of all relevant cl inical and laboratory findings and sh ould not form the so le basis for a joel gnosis or treatment decision. A fac t sheet for patie nts provided by the melt superintendant ([employer]) can be rev iewed at: https://www.[facility] .gov/m edia/265164/jean claude nloadA fact sheet for Health Care providers is provided by the melt superintendant ([employer]) and can be reviewed at: https://www.fda .gov/m edia/273721/jean claude nload Influenza A and Influenza B neg ative results should be considered presumptive in samples that noe ve a positive SARS-C oV-2 result. If co-infection wi th influenza A or influenza B vir us is suspected in sa mples with a positive SARS-CoV-2 resu lts, the sample shou ld be re-tested with another approve d influenza test. This assay has been authorized by t [facility] for use only un art Emergency Use Authorization ( EUA) in laboratories that have been CLIA-certified to perform moderate-comple xity and high-comple xity tests. The Microbiology [facility] at [facility], CLIA Accreditation #[id number] and CAP Accreditation #[id number], verif ied the performance characteristics of this assay. Int ernal controls are us ed to monitor all sta ges of the test proces s. MD DelarosaMRI Cervical, Thoracic and Lumbar Spine without [id number] 00:44:48 Motion degraded prematurely terminated examination due to patient discomfort. Contrast was not administered. Partially visualized suboccipital surgical changes are noted and better visualized on recent comparison brain imaging. There is a nonspecific appearing central cord T2 hyperintensity in the cervical region without appearance of mass or cord compression. There is the appearance of an intradural mass which splays the cauda equina nerve roots dorsally and laterally which most likely represents an arachnoid cyst. This leads to mass effect without apparent compression on the cauda equina nerve ro ots. The cauda equina nerve roots do not appear thickened.Interface, Radiology Results In - 12/02/2020 7:46 PM CDT FULL RESULT:Examination: MRI CERVICAL THORACIC LUMBAR SPINE WO CONTRAST on 12/02/2020 6:06 PMClinical History: PseudomeningoceleMass lesion of brainIndication: staging hemangioblastoma hxComparison: CT chest, abdomen and pelvis 08/01/2020. MRI of brain November 14, 2020.Technique: MRI of the Cervical Spine without contrast.MRI of theThoracic Spine without contrast.MRI of the Lumbar Spine without contrast.Prematurely terminated examination due to patient discomfort.FINDINGS:The study is degraded by motion artifact.CERVICAL SPINE:Cer vical spine alignment is within normal limits. The intervertebral disc spaces are preserved.The vertebral body marrow signal is within normal limits and without evidence of a fracture or a marrow replacing lesion.There are partially visualized surgical changes involving the suboccipital region involving LEFT cerebellar hemisphere. These are better appreciated on the MRI of the brain from November 14, 2020. There is apparent central T2 hyperintensity involving the cervical cord. The cervical cord caliber appears within normal limits. No focal mass is identified on these contrast motion degraded images.There is no significant neural foraminal or spinal canal stenosis. The paravertebral soft tissues are un remarkable.THORACIC SPINE:Thoracic spine alignment is within normal limits. The intervertebral disc spaces are preserved.The vertebral body marrow signal is within normal limits and without evidence ofa fracture or a marrow replacing lesion.The vertebral body heights are maintained.The thoracic cord is within normal limits in caliber and signal. There is no abnormal cord enhancement.There is no significant neural foraminal or spinal canal stenosis.The paravertebral soft tissues are unremarkable.LUMBAR SPINE:Lumbar spine alignment is within normal limits. The intervertebral disc spaces are preserved.The vertebral body marrow signal is within normal limits and without evidence of a fracture or a marrow replacing lesion.The conus terminates at the L1-2 disc level. The conus and cauda equina nerve roots are displaced dorsally and laterally throughout the lumbar region in a pattern suggestive of a arachnoid cyst.There is no significant neural foraminal or spinal canal stenosis. The paravertebral soft tissues are unremarkable.IMPRESSION:Motion degraded prematurely terminated examination due to patient discomfort. Contrast was not administered.Partially visualized suboccipital surgical changes are noted and better visualized on recent comparison brain imaging.There is a nonspecific appearing central cord T2 hyperintensity in the cervical region without appearance of mass or cord compression.Thereis the appearance of an intradural mass which splays the cauda equina nerve roots dorsally and laterally which most likely represents an arachnoid cyst. This leads to mass effect without apparent compression on the cauda equina nerve roots. The cauda equina nerve roots do not appear thickened. MD Delaro[id number] 20:21:39 Test Item Value Reference Range Interpretation Comments Potassium Lvl (test code 3.4 See_Comment L [A utomated message] = 6854) The system MST generated this result transmitted ref erence range: 3.5 - 5. 1 mEq/L. The refe rence range was not u sed to interpret this result as normal/abnor mal. Lab Interpretation (test Abnormal code = 97136-3) MD DelarosaCT Chest Abdomen Pelvis with and without [id number] 00:03:55 1. Interval placement of a left-sided ventriculoperitoneal shunt catheter, whose tip terminates in the left lower quadrant of abdomen adjacent to the left colon. 2. Left anterior chest wall and left lateral abdominal wall subcutaneous emphysema and pneumoperitoneum, most likely secondary to recent catheter placement. Attention to these findings recommended on follow-up to confirm expected resolution. 3. Stable subcentimeter pulmonary parenchymal nodules, that can be reassessed on follow-up. Interface, Radiology Results In - 11/29/2020 7:06 PM CDT FULL RESULT:Examination: CT CHEST ABDOMEN PELVIS W WO CONTRAST, 11/29/2020 5:53 PMClinical History: 65 y.o. male with s/p suboccipital craniotomy for resection of hemangioblastoma, presenting with postoperative pseudomeningocele. Now status post left ventriculoperitoneal shunt .Indication: COVID-19 Not Suspected, Staging, hemangioblastomaComparison: 09/23/2020.Technique: CT of the abdomen was p erformed without intravenous contrast followed by CT of the chest, abdomen, and pelvis with intravenous contrast.Findings: Chest:Atherosclerotic calcifications are present within the coronary arteries.There is no mediastinal, hilar or axillary adenopathy. There is a calcified subpleural right upper lobe granuloma. There is groundglass airspace disease in the subpleural right upper lobe, new since theprior, seen on series 6 images 44-51, consistent with small airways infectious/inflammatory etiology.Again seen are punctate indeterminate subcentimeter pulmonary nodules, annotated on series 6. These are unchanged compared to the 09/23/2020 prior study and can continue to be reassessed on follow-up.No new suspicious pulmonary nodules or masses. There is bilateral lower lobe subsegmental atelectasis, most likely secondary to end expiratory phase scanning. There are tiny bilateral pleural effusions.No suspicious osseous lesions. A ventriculoperitoneal shunt catheter is visualized within the subcutaneous left anterior chest wall. There is trace air along the course of the catheter at the level of the upper thorax (series 5 images 5-35), compatible with recent shunt placement.Abdomen and pelvis: Respiratory motion artifact reduces study sensitivity.The left ventriculoperitoneal shunt catheter traverses the subcutaneous left anterior chest wall, entering the peritoneal cavity via the left upper quadrant of abdomen ( series 5 image 197). The tip of the left ventriculoperitoneal shunt catheter terminates in the left lower quadrant of abdomen lateral to the left colon, series 5 image 235. There is subcutaneous emphysema in the left lateral abdominal wall (for example series 5 image 206). Additionally, there is pneumoperitoneum in the subdiaphragmatic space predominantly located anterior to the left liver (series 5 image 146-183).No suspicious liver lesions. There are gallstones in the gallbladder. The spleen, pancreas, right adrenal are unremarkable. There is a stable 0.9 cm left adrenal adenoma.There is sigmoid diverticulosis without evidence for diverticulitis. The bowel is nonobstructed.Thereis mild pelvic ascites.No suspicious osseous lesions. IMPRESSION:1. Interval placement of a left-sided ventriculoperitoneal shunt catheter, whose tip terminates in the left lower quadrant of abdomen adj acent to the left colon.2. Left anterior chest wall and left lateral abdominal wall subcutaneous emphysema and pneumoperitoneum, most likely secondary to recent catheter placement. Attention to these findings recommended on follow-up to confirm expected resolution.3. Stable subcentimeter pulmonary parenchymal nodules, that can be reassessed on follow-up.MD DelarosaAmmonia [id number] 12:28:37 Test Item Value Reference Range Interpretation Comments Ammonia (test code = 14 See_Comment L [Autom ated message] 4566) The system MST generated this result transmitted ref erence range: 16 - 60 mcmol/L. The reference range was not used to int erpret this result as normal/abnormal . Lab Interpretation (test Abnormal code = 21875-0) MD DelarosaX-ray Abdomen 1 View [id number] 21:15:50 No mechanical obstruction. Average pancolonic stool burden with mild to moderate fecal material within the rectal vault. Partially visualized S[employer]IOR JAVA ENGINEER catheter tubing tip projecting over the right paramedian abdomen.Interface, Radiology Results In - 11/27/2020 4:18 PM CDT FULL RESULT:Examination: XR ABDOMEN 1 VW PORTABLE 11/27/2020 3:53 PMClinical History: PseudomeningoceleMass lesion of brainIndication: Constipation, Nausea / VomitingComparison: 09/23/2020 and 09/29/2020Technique: XR ABDOMEN 1 VW PORTABLE. This technique is limited for the detection of any potential free intraperitoneal air.Findings: Nonobstructed bowel gas pattern. No abnormalbowel dilatation. Average pancolonic stool burden with mild to moderate amount of fecal material within the rectal vault. No pneumoperitoneum within limits of supine technique.SENIOR JAVA ENGINEER catheter shunting courses along the left lower chest and coils within the left upper quadrant with the tip projecting of the right paramedian abdomen.No acute osseous abnormality.IMPRESSION:No mechanical obstruction.Average pancolonic stool burden with mild to moderate fecal material within the rectal vault.Partially visualized SENIOR JAVA ENGINEER catheter tubing tip projecting over the right paramedian abdomen.MD DelarosaCT Head without [id number] 19:54:511. Left frontal ventriculostomy catheter is again noted without evidence of any disconnection between the catheter and the reservoir.2. No significant interval change in the findings compared to 021 exam. Attending addendum:There has been interval development of a left hemispheric low density extra-axial collection measuring 4 mm in width (image 51 of series 3). Left lateral ventricle is slightly smaller compared to the prior examination. No acute parenchymal hemorrhage or new mass effect or midline shift. Early term follow-up head CT is recommended. Findings were discussed with the nurse ont floor on 11/27/2020 at 900 hours. I personally reviewed these image(s) along with the resident's/fellow's interpretations, certify that if a procedure was performed I was physically present, and agree with the final report.Interface, Radiology Results In - 11/27/2020 2:57 PM CDT FULL RESULT:Examination: CT HEAD WO CONTRAST on 11/27/2020 4:06 AMClinical History: PseudomeningoceleMass lesion of brainIndication: "Not for stroke, trauma, headache, sinusitis, or syncope, Evaluation for possible valve disconnection on shunt series"Comparison: Comparison is made to shunt series radiographs from 11/26/2020, CT head from 11/25/2020, and MRI head from 11/14/2020Technique: Noncontrast axial images were obtained from the skull base through the vertex. Sagittal and coronal reconstructed images were also obtained.Findings: Left frontal approach ventric le ostomy catheter is seen terminating in the left lateral ventricle. There is expected postsurgicalpneumocephalus in the frontal horn of the right lateral ventricle and overlying the left frontal lobe. The ventricular system is mildly prominent, but similar in size compared to 11/25/2020 CT.There is no acute hemorrhage, focal mass effect, midline shift, or acute cortically-based stroke. Overall ravi-white differentiation is preserved.Suboccipital craniotomy postsurgical changes are again seen with astable left cerebellar resection cavity with a pseudomeningocele but appears stable from 11/25/2020 CT head.Visualized paranasal sinuses and mastoids are clear. No air-fluid levels are seen.IMPRESSION:1. Left frontal ventriculostomy catheter is again noted without evidence of any disconnection between the catheter and the reservoir.2. No significant interval change in the findings compared to 11/25/2020 exam.Attending addendum:There has been interval development of a left hemispheric low density extra-axial collection measuring 4 mm in width (image 51 of series 3). Left lateral ventricle is slightly smaller compared to the prior examination. No acute parenchymal hemorrhage or new mass effect or midline shift. Early term follow-up head CT is recommended.Findings were discussed with the nurse on the floor on 11/27/2020 at 900 hours.I personally reviewed these image(s) along with the resident's/fellow's interpretations, certify that if a procedure was performed I was physically present, and agree with the final report.MD DelarosaCalcium [id number] 18:38:57 Test Item Value Reference Range Interpretation Comments Calcium Lvl (test code = 5258) 9.4 mg/dL 8.4-10.2 MD DelarosaAnaerobic [id number] 04:20:51 Test Item Value Reference Range Interpretation Comments Final Report (test No growth code = 8488) Path Review - Culture yield may be Anaerobe (test code affected by sample = 8478) quality, prior treatment, and transportation conditions....The results have been reviewed and electronically signed by Pathologist:Jhonathan Gipson MD, PhD #[id number] LISA (test code = Brain (printed on the LISA) specimen label)Lumbar (printed on the specimen label) MD DelarosaXR Shunt [id number] 01:48:50The separation of the intraventricular catheter from the medial radiopaque marker of the reservoir has increased since the head CT from 11/25/2020.Interface, Radiology Results In - 11/26/2020 8:51 PM CDT FULL RESULT:Examination: XR SHUNT SERIES, 11/26/2020 6:30 PM.Clinical History: Pseudomeningocele; Mass lesion of brainIndication: s/p VPSComparison: CT head from 12/06/2020.Technique: A shunt series was consisting frontal and lateral views of the skull and neck, chest, abdomen. A total of 10 images are provided.Findings: There is a left frontal approach ventriculoperitoneal shunt. The intraventricular component appears to be from the medial radiopaque marker of the reservoir by 3.3 cm. This is compared to 1.[address] head from 11/25/2020.The extracranial component of the catheter traverses along the left anterior chest wall. The tip projects over the right upper quadrant.There is transitional lumbosacral anatomy with a sacralized L5.This findings regarding the catheter were discussed with Dr. Moe at the time of image interpretation at approximately 8:45 p.m. on 11/26/2020.IMPRESSION:The separation of the intraventricular catheter from the medial radiopaque marker of the reservoir has increased since the head CT from 11/25/2020.MD Carheter Tip Fungus [id number] 09:20:32 Test Item Value Reference Range Interpretation Comments Final Report (test No Fungi isolated. code = 8488) Path Review - Culture yield may be Fungus (test code = affected by sample 8479) quality, prior treatment, and transportation conditions....The results have been reviewed and electronically signed by Pathologist:Jhonathan Gipson MD, PhD #[id number] LISA (test code = Ventricular drain LISA) MD Larsen Interpretation Antibody Screen [id number] 21:49:29 Test Item Value Reference Range Interpretation Comments TMP Auto Neg At the present ABSC Interp time, patient (test code = plasma shows no ____SULTANA PAUL MD 7535) evidence of RBC - 84273Hxubs bam by: alloantibodies. SULTANA OLVERA MD - [id number] D ate/Time: 11.25.2020 16:4 9 PM CDT Transcribed Da te/Time: 11.25.2020 16:4 9 PM CDTElectronical ly Signed By: SULTANA SAENZ MD - [id number] on 16:49 PM MD Mota Glucose [id number] 21:08:46 Test Item Value Reference Range Interpretation Comments POC Glucose (test 98 mg/dL 70-99 Capillary blood code = 26096-1) samples, e.g . obtained by fingerstick, may have inaccurate results in karo ents with decreased peripheral bloo d flow. Method descript ion: All results are measured using Electrochemistr y test methodology. Th e glucose in the sample mixes with the reagents on the test strip. The reac tion produces an margaux ctric current. The am ount of current produce d is proportional to the glucose concent ration in the blood. PO Sample Type Capillary (test code = 9554) Performing Lab [facility] (test code = of Etta WARREN And radha [address]) Clinical Lab, [address] [facility], [place], [place] [address]; Director Speech And Hearing: MD MD Washington CarrilloAntibody [id number] 15:04:39 Test Item Value Reference Range Interpretation Comments ABSC. (test code = 890-4) Negative ABSC MD [id number] 15:04:09 Test Item Value Reference Range Interpretation Comments ABORh. (test code = 882-1) O POS MD DelarosaClot Expiration [id number] 15:04:07 Test Item Value Reference Range Interpretation Comments T & S Expiration (test code = 11/28/2020 5318) MD DelarosaPartial Thromboplastin [id number] 11:41:53 Test Item Value Reference Range Interpretation Comments PTT (test code = 29.8 See_Comment [Automated message] The 6773) system which ge nerated this result transmit bam reference range : 24.7 - 36.8 second(s). The reference range was not used to interpr et this result as cora l/abnormal. MD DelarosaProthrombin [id number] 11:39:07 Test Item Value Reference Range Interpretation Comments PT (test code = 6746) 12.5 See_Comment [Auto mated message] The system which ge nerated this result transmit bam reference range : 11.5 - 13.9 second(s). The reference range was not used to interpr et this result as cora l/abnormal. INR (test code = 1.00 0.90-1.10 5973) MD DelarosaVancomycin [id number] 04:56:50 Test Item Value Reference Range Interpretation Comments Vanco Trough (test 18.1 See_Comment Toxic Tro ugh Level: >20 code = 8008) mcg/mL [Automat ed message] The sy stem which generated this result transmit bam reference range : 5.0 - 20.0 mcg/mL. Th e reference range was not used to interpr et this result as normal/abnormal . Vanco Tr Dose Time Unknown (test code = 8007) Vanco Tr Dose Date 11/24/2020 (test code = 8006) MD Hui Leg Venous Doppler [id number] 15:36:12 No evidence of bilateral lower extremity deep venous thrombosis. Interface, Radiology Results In -11/24/2020 10:38 AM CDT FULL RESULT:Examination: US LEG VENOUS DOPPLER BILATERAL, 11/24/2020 10:21 AM.Clinical History: Pseudomeningocele.Indication: Edema Other:, To evaluate for deep vein thrombosisComparison: None..Technique: Grayscale, color Doppler and spectral waveform analysis of the bilateral lower extremity deep venous system was performed.Findings: The bilateral common femoral, femoral and popliteal veins are compressible with Doppler flow and spontaneous phasic waveforms, which responded augmentation.No evidence of thrombosiswithin the bilateral saphenofemoral junction or partially visualized left deep femoral vein.No evidence of thrombosis in bilateral anterior tibial, posterior tibial, peroneal veins.IMPRESSION:No evidence of bilateral lower extremity deep venous thrombosis.MD DelarosaCSF Culture w/ Gram [id number] 21:10:16 Test Item Value Reference Range Interpretation Comments Final Report (test No growth code = 8488) Path Review (test The results have been code = 8492) reviewed and electronically signed by Pathologist:Isaac Erazo MD, PhD #[id number] Gram Stain Report Few WBC's seenNo organisms (test code = seen. 82781-3) LISA (test code = Lumbar (printed on the LISA) specimen label) MD DelarosaPlt [id number] 13:39:28 Test Item Value Reference Range Interpretation Comments Platelet count (test code = 6832) 254 K/uL 140-440 MPV (test code = 6282) 10.6 fL 4.0-10.4 H Lab Interpretation (test code = Abnormal 14786-5) MD DelarosaCatheter Tip [id number] 20:55:51 Test Item Value Reference Range Interpretation Comments Final Report (test No growth code = 8488) Path Review (test The results have been code = 8492) reviewed and electronically signed by Pathologist:Isaac Erazo MD, PhD #[id number] LISA (test code = Ventricular drain LISA) MD DelarosaUrine [id number] 20:59:01 Test Item Value Reference Range Interpretation Comments Final Report (test No growth code = 8488) Path Review - Urine The results have been (test code = 8483) reviewed and electronically signed by Pathologist:Isaac Erazo MD, PhD #[id number] MD Elizalde Ag Path [id number] 19:38:22Crypto Ag PRReviewed and Electronically signed by Pathologist:Isaac Erazo MD, PhD #[id number] Comment: Reference Range: NEGATIVE The Cryptococcal Antigen Lateral Flow Assay is a dipstick sandwich immunographic assay. Positive results will be titered. ISAAC ERAZO MD, PhD - [id number] by: ISAAC ERAZO MD, PhD - [id number] Date/Time: 11.17.2020 14:38 PM CDT Transcribed Date/Time: 11.17.2020 14:38 PM CDTElectronically Signed By: ISAAC ERAZO MD, PhD - [id number] on 11.17.2020 14:38 PM [facility]MD AndersonCSF Diff Path [id number] 17:51:16 Test Item Value Reference Interpretation Comments Range CSF Diff Path Rare cluster of Review lining cells. Interpretation Suggest CHE RYL F (test code = 8889) correlation with CHARLES CARTAGENA MD - cytology. [id number] b y: YONG ROBERT MD - [id number] Date/Time: 12:51 PM CDT Transcribed Date/Time: 12:51 PM CDTElectronical ly Signed By: RUBEN ROBERT MD - [id number] on 11.17 12:51 PM MD Elizalde [id number] 15:49:44 Test Item Value Reference Range Interpretation Comments Cryptococcal Antigen Negative Negative Screen (test code = 42101-2) LISA (test code = LISA) Lumbar (printed on the specimen label) MD DelarosaMeningitis-Encephalitis Multiplex Panel Path [id number] 15:31:12[facility] Path ReviewReviewed and Electronically signed by Pathologist:Isaac Erazo MD, PhD #[id number] Comment: Assay is a multiplex PCR assay to aid in the diagnosis of meningitis / encephalitis. Results should be used in conjunction with other clinical and laboratory data and not as the sole basis for clinical decisions. Assay should not be used for monitoring response to therapy. ISAAC ERAZO MD, PhD - [id number] by: ISAAC ERAZO MD, PhD - [id number] Date/Time: 11.17.2020 10:31 AM CDT Transcribed Date/Time: 11.17.2020 10:31 AM CDTElectronically Signed By: ISAAC ERAZO MD, PhD - [id number] on 11.17.2020 10:31 AM [facility]MD DelarosaCell Count w/ Diff [id number] 03:30:41 Test Item Value Reference Range Interpretation Comments Type CSF (test code Other When rev iewing the = 10208-6) cell count and differential results, clinicians letty krishna consider the length of time between spinal fluid collectio n and testing and the clinical condition of th e patient. Appear CSF (test CLEAR CLEAR When review ing the code = 11498-1) cell count a nd differential results, clinicians letty krishna consider the length of time between spinal fluid collectio n and testing and the clinical condition of th e patient. Color CSF (test code Colorless Colorless When re viewing the = 95610-3) cell count and differential results, clinicians letty krishna consider the length of time between spinal fluid collectio n and testing and the clinical condition of th e patient. WBC CSF (test code = 8 See_Comment H When re viewing the 806-0) cell count and differential results, clinicians letty krishna consider the length of time between spinal fluid collectio n and testing and the clinical condition of th e patient. [Automated message] The system which generated this result transmit bam reference range : 0 - 5 /mcL. The reference range was not used to interpret this result as normal/abnormal . RBC CSF (test code = 490 See_Comment H When re viewing the 792-2) cell count and differential results, clinicians letty krishna consider the length of time between spinal fluid collectio n and testing and the clinical condition of th e patient. [Automated message] The system which generated this result transmit bam reference range : 0 - 0 /mcL. The reference range was not used to interpret this result as normal/abnormal . Tot Cells CSF (test 100 When rev iewing the code = 22721-4) cell count a nd differential results, clinicians consuelou erendira consider the length of time between spinal fluid collectio n and testing and the clinical condition of th e patient. Neut CSF (test code 39 % 0-5 H When rev iewing the = 27124-1) cell count and differential results, clinicians consuelou erendira consider the length of time between spinal fluid collectio n and testing and the clinical condition of e patient. Lymph CSF (test code 27 % 28-96 L When re viewing the = 93383-6) cell count and differential results, clinicians consuelou erendira consider the length of time between spinal fluid collectio n and testing and the clinical condition of th e patient. Histiocyte CSF (test 10 % 16-56 L When re viewing the code = 36148-1) cell count a nd differential results, clinicians letty krishna consider the length of time between spinal fluid collectio n and testing and the clinical condition of th e patient. Eos CSF (test code = 5 % When re viewing the 98007-3) cell count and differential results, clinicians consuelou erendira consider the length of time between spinal fluid collectio n and testing and the clinical condition of th e patient. Other CSF (test code 19 % Differe ntial is = 6576) referred to Pathologist for review.The othe r cells may be further characterized a nd enumeratedin e Pathologist's interpretation. When reviewing the cell count and differential results, clinicians letty krishna consider the length of time between spinal fluid collectio n and testing and the clinical condition of th e patient. Microorganisms CSF None Seen None Seen When revi quispe the (test code = 9393) cell coun t and differential results, clinicians letty krishna consider the length of time between spinal fluid collectio n and testing and the clinical condition of th e patient. LISA (test code = From fresh LISA) ventricular drain replaced 11/16 Lab Interpretation Abnormal (test code = 90429-8) MD DelarosaMeningitis-Encephalitis [id number] 01:11:02 Test Item Value Reference Interpretation Comments Range Menin/Enceph Panel CSF Lumbar Assay is Source (test code = FDA-melinda red for 9391) spinal fluid obtained via lumbar puncture . Analysis of cerebrospinal fluid collected at other sites or from indwelling devices has bee n internally validated as a modified FDA-cleared ass ay. Escherichia coli K1 Not Detected Not Detected (test code = 9144) Haemophilus Not Detected Not Detected influenzae (test code = 9145) Listeria Not Detected Not Detected monocytogenes (test code = 9146) Neisseria Not Detected Not Detected meningitidis (test code = 9147) Streptococcus Not Detected Not Detected agalactiae (test code = 9148) Streptococcus Not Detected Not Detected pneumoniae (test code = 9149) Cytomegalovirus (test Not Detected Not Detected code = 9150) Enterovirus (test Not Detected Not Detected code = 9151) Herpes simplex Virus Not Detected Not Detected 1 (test code = 9153) Herpes simplex Virus Not Detected Not Detected 2 (test code = 9154) Human Herpesvirus 6 Not Detected Not Detected (test code = 9155) Human Parechovirus Not Detected Not Detected (test code = 9156) Varicella zoster Not Detected Not Detected Virus (test code = 9157) Cryptococcus Refer to separate neoformans/radha Cryptococcal (test code = 9158) Antigen Assay. LISA (test code = LISA) Lumbar (printed on the specimen label) MD DelarosaProtein [id number] 00:39:25 Test Item Value Reference Range Interpretation Comments Protein CSF (test code = 83 mg/dL 15-45 H 6894) Type CSF (test code = Other When r eviewing the 7672) cell count and differential re sults, clinicians letty krishna consider the le ngth of time between spinal fluid collection and testing and the clinical condit ion of the patient. Lab Interpretation (test Abnormal code = 86757-9) MD DelarosaGlucose [id number] 00:39:16 Test Item Value Reference Range Interpretation Comments Glucose CSF (test code = 35 mg/dL 40-70 A 5697) Type CSF (test code = Other When r eviewing the 7672) cell count and differential re sults, clinicians letty krishna consider the le ngth of time between spinal fluid collection and testing and the clinical condit ion of the patient. Lab Interpretation (test Abnormal code = 88384-4) MD [id number] 13:46:29 Test Item Value Reference Range Interpretation Comments pH Art (test code = 7.45 7.35-7.45 Results are 2744-1) corrected for a body temp of 37C. pCO2 Art (test code = 26.8 See_Comment L [Auto mated message] 2019-01) The system MST generated this result transmit bam reference range : 35.0 - 48.0 mmH g. The reference r isrrael was not used to interpret this result as normal/abnormal . pO2 Art (test code = 123 See_Comment H [Autom ated message] 2707-11) The system MST generated this result transmit bam reference range : 83 - 108 mmHg. The reference range was not used to interpret this result as normal/abnormal . HCO3 Art (test code = 18 mmol/L 21-28 L 1959-) Base Excess Art (test -4 mmol/L -2-3 L code = 1925-7) O2 Sat Art (test code = 98 % 95-99 6512) Lab Interpretation (test Abnormal code = 27365-7) MD DelarosaCS Cell [id number] 22:16:54 Test Item Value Reference Range Interpretation Comments Type CSF (test code = Other ventri cular fluidWhen 84708-0) reviewing the c ell count and differential re sults, clinicians letty krishna consider the le ngth of time between spinal fluid collection and testing and the clinical condit ion of the patient. Color CSF (test code = Colorless Colorless When reviewing the 85397-9) cell count and differential re sults, clinicians letty krishna consider the le ngth of time between spinal fluid collection and testing and the clinical condit ion of the patient. Appear CSF (test code = CLEAR CLEAR When reviewing the 54758-6) cell count and differential re sults, clinicians letty krishna consider the le ngth of time between spinal fluid collection and testing and the clinical condit ion of the patient. WBC CSF (test code = 24 See_Comment A When re viewing the 806-0) cell count and differential re sults, clinicians letty krishna consider the le ngth of time between spinal fluid collection and testing and the clinical condit ion of the patient. [Automated mess age] The system MST generated this result transmitted ref erence range: 0 - 5 /m cL. The reference r isrrael was not used to interpret this result as normal/abnor mal. RBC CSF (test code = 8 See_Comment H When re viewing the 792-2) cell count and differential re sults, clinicians letty krishna consider the le ngth of time between spinal fluid collection and testing and the clinical condit ion of the patient. [Automated mess age] The system MST generated this result transmitted ref erence range: 0 - 0 /m cL. The reference r isrrael was not used to interpret this result as normal/abnor mal. Lab Interpretation Abnormal (test code = 26402-7) MD DelarosaUrinalysis with [id number] 18:41:24 Test Item Value Reference Interpretation Comments Range UA WBC (test code = NOT SEEN See_Comment [Automa bam 7904) message] The system which generated this result transmitted reference range : 0 - 2 /HPF. The reference range was not used to interpret this result as normal/abnormal . UA RBC (test code = 1 See_Comment [Automa bam 7891) message] The system which generated this result transmitted reference range : 0 - 2 /HPF. The reference range was not used to interpret this result as normal/abnormal . UA Mucous (test code NOT SEEN Not Seen-Trace = 7887) /HPF UA Bacteria (test NOT SEEN NOT SEEN /HPF code = 7870) UA Squam Epi (test OCC None-Occasiona code = 7896) l /HPF UA Amorph Laurie (test OCC NOT SEEN /HPF A code = 7867) LISA (test code = Some reporting LISA) parameters within the Urinalysis test have changed due to the implementation of new instrumentation in the [facility] [place], allowing greater sensitivity of measurement. Urinalysis results reported by the [facility] using existing instrumentation, as well as Urinalysis testing performed manually or by backup methodology at the [facility] [place] will remain relatively unchanged. New reporting parameters and units will now be reported for all campuses. Lab Interpretation Abnormal (test code = 07518-0) MD DelarosaUrinalysis w/Microscopic if Shargtttu3023-65-52 18:35:03 Test Item Value Reference Range Interpretation Comments UA Color (test code = 7877) Yellow Straw-Yellow UA Appear (test code = 7868) Hazy Clear A UA Glucose (test code = 7881) NEG NEG mg/dL UA Bili (test code = 7871) NEG NEG UA Ketones (test code = 7884) NEG NEG mg/dL UA Spec Grav (test code = 7894) 1.015 1.003-1.035 UA Blood (test code = 7872) NEG NEG UA pH (test code = 7909) 7.0 5.0-9.0 UA Protein (test code = 7890) NEG NEG mg/dL UA Urobilinogen (test code = 7903) NEG NEG UA Nitrite (test code = 7888) NEG NEG UA Leuk Est (test code = 7886) NEG NEG Lab Interpretation (test code = Abnormal 00814-0) MD DelarosaMRI Brain with and without Wrjososq1724-22-38 13:20:05Addendum by Simeon Ross MD on 11/18/2020 2:14 PMTECHNIQUE: Multiplanar multisequence MRI ofthe brain was accomplished before and after administration of intravenous contrast. 1. 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 No evidence for recurrence at the resection site.3. Small focus of superficial enhancement at thesuperior margin of the resection cavity, which is stable to slightly improved since the most recent study.4. Right frontal approach ventriculostomy catheter. Interface, Radiology Results In - 11/15/2020 8:23 AM CDT FULL RESULT:EXAMINATION:MRI BRAIN W WO CONTRAST on 11/14/2020 6:51 PMCLINICAL HISTORY: PseudomeningoceleMass lesion of brainINDICATION: Not for stroke, trauma, headache, sinusitis, or syncopeCOMPARISON: 09/28/2019TECHNIQUE: Multiplanar multisequence MRI of the brain was accomplished before administration of intravenous contrast .FINDINGS:Midline infratentorial craniotomy has been performed. There is a fluid collection in the dorsal soft tissues anterior to the craniotomy flap that has enlarged somewhat since the most recent earlier examination. This finding is consistent with a pseudomeningocele.A resection cavity is presentin the left cerebellar hemisphere, corresponding the site of the cystic solid mass present in the left cerebellum on the preoperative study of 09/22/2020. At the superior margin of the resection cavity, there is a small superficial focus of enhancement measuring about 4 mm in long axis (image 89 series 9). This focus of enhancement was present on the immediate postoperative study dated 09/27/2020. He stable to perhaps slightly less conspicuous today than it was on the earlier exam.There are no new lesions identified. The ventricles are midline and prominent. Third ventricle measures 1.2 cm transversely. Sulci are age- appropriate. A ventricular shunt catheter enters the right lateral ventricle and terminates near midline just cephalad to foramen of Rivera.IMPRESSION:1. Enlarging pseudomeningocele inthe suboccipital soft tissues superficial to the infratentorial craniotomy flap.2. No evidence for recurrence at the resection site.3. Small focus of superficial enhancement at the superior margin ofthe resection cavity, which is stable to slightly improved since the most recent study.4. Right frontal approach ventriculostomy catheter.MD DelarosaSodium [id number] 20:19:43 Test Item Value Reference Range Interpretation Comments Sodium Lvl (test code = 134 See_Comment L [Au tomated message] 5255) The system MST generated this result transmitted ref erence range: 136 - 14 5 mEq/L. The refe rence range was not u sed to interpret this result as normal/abnor mal. Lab Interpretation (test Abnormal code = 91932-5) MD Del[facility]osaGene[facility] Cqbv2296-07-12 10:10:36 Test Item Value Reference Range Interpretation Comments Ordered (test code = Test Added 6568) Test Needed (test code Magnesium/ Phosphorus = 7604) MD DelarosaFractionated Yxqafjxta0033-00-29 03:57:36 Test Item Value Reference Range Interpretation Comments Bili Total (test 0.8 mg/dL See_Comment Indocyanine Green (ICG) code = 5096) may cause false ly elevated biliru bin results. Total and direct bilirubin must not be measured from s amples containing indo cyanine green. False el evation of total bilirubin can be seen in patient s with IgG concentrations above 28 g/L. [Automate d message] The system whic h generated this result transmitted ref erence range: <=1.2. T he reference range was not used to interpr et this result as normal/abnormal . Bili Direct (test 0.2 mg/dL See_Comment Indocyanin e Green (ICG) code = 5094) may cause false ly elevated biliru bin results. Total and direct bilirubin must not be measured from s amples containing indo cyanine green. [Automat ed message] The sy stem which generated this result transmitted ref erence range: <=0.3. T he reference range was not used to interpr et this result as normal/abnormal . Bili Indirect (test 0.6 mg/dL 0.0-0.9 code = 5095) MD DelarosaAlbumin Ipiil6795-02-92 03:57:31 Test Item Value Reference Range Interpretation Comments Albumin Lvl (test code 4.5 See_Comment [Aut omated message] The = 1333) system which ge nerated this result tra nsmitted reference range : 3.5 - 5.2 gm/dL. The refe rence range was not used to interpret this result as normal/abnormal . MD DelarosaTotal Hlthils7769-73-62 03:57:30 Test Item Value Reference Range Interpretation Comments Total Protein (test code = 7649) 7.3 g/dL 6.4-8.3 MD DelarosaAspartate Ubpyqnieakvmrxhh4516-42-60 03:57:29 Test Item Value Reference Range Interpretation Comments AST (test code = 12 U/L See_Comment [Automated message] The 6491) system which ge nerated this result transmit bam reference range : <=40. The reference range was not used to interpr et this result as cora l/abnormal. MD DelarosaAlkaline Updvzdldmtd2606-24-12 03:57:26 Test Item Value Reference Range Interpretation Comments Alk Phos (test code = 4768) 60 U/L 40-129 MD DelarosaPaxophwsOKF6145-24-80 03:57:24 Test Item Value Reference Range Interpretation Comments ALT (test code = 10 U/L See_Comment [Automated message] The 5376) system which ge nerated this result transmit bam reference range : <=41. The reference range was not used to interpr et this result as cora l/abnormal. MD DelarosaBlood Daljnof3853-51-09 17:16:44 Test Item Value Reference Range Interpretation Comments Final Report (test No growth code = 8488) Path Review - Culture yield may be Bottle/Isolator affected by sample (test code = 8499) quality, prior treatment, and transportation conditions....The results have been reviewed and electronically signed by Pathologist:Jhonathan Gipson MD, PhD #[id number] [facility] [place]athlijkfsw5300-51-69 11:41:00 Test Item Value Reference Range Interpretation Comments Diagnosis (test code = l9trnWUsKITraKZ0DrRuTKZ 34) es7njl5LyhEFieBWuPWnuuU SmdqSnei10qDF2nR66OW9cO FJnYxW3UFNvbmS5Ynf5VRIu EPHxkTYxW801e8vha9fcraF rtPE0zEyuLNZlGSXjBNgtMS RlKfJmcQMxLQL1LKPZDcIDW QmSDX7pNNrKSmAgMGYNPYKW TMVACXsnX7BWIzgWHL7VDMO WYGAMQCDOB9PUJEqUWnlipQ EeIQCvxxf0YSOpXvgkhaBdW NePDXKSQ9kIHzgVQ5BRLFDd qPBmPBIiVhENYJ9pF4ZVTJT gSVxwYXJcZnMyMFxwYXJcdG EcLFLvZRdyQUGTIXTOY42CD G7BOMlgMOCyoYWlEPTrPhHo mPLxYQQgJTL0JPRMXoCBZEw ZCH6kZTgGTiWkUUKDMNVHZJ WUBAxxP3SZCjvCMD1PEFNHG JFJDPAEE1DZFGbGLwyvrZXs MLIagla5UMAcX1GphLb4jDE iDItmKFQzvY1qkU9pkRctTX mKTaElk3NrsPzfIZAKOPPHM YMPURDlf7JpI94rJfynLLJk hLKxWXAcQfb9ABFqoKWvFDD 7LNDWOxWUYPaORW2fJCfERw XdLAPYIQWXMHJXHSitI5NTM zcJVS4RPMGVPSDOVKLBN4DB VElPTjpccGFyXGxpNzIwXGx pbjcyMFxwYXJcYlxmczIyIE jUNKSVI4bNNcnTP3IABGVqw GFyIFdITyBHUkFERSBJXHBh clxiMFxmczIwXHBhclxiXGZ tGZalYIECJNJQJ91OMI7MGC xwYXJcYjBcZnMyMFxwYXJ9 Comment (test code = t0jgtZVtPXAvhPW4VoRcYDA 9865) gk7tda2QdcYJwaCEcTWesdG WndnKjaz17dSR5xF37XM4wH WOpJoJ8PVHdazW2Ahd3TOBd WTQtlDSmK861a7ywe5gdmmN sbXP5yVjvOGXeILAzHAovGI ZzMjBccGFyIFRoZSBwYXRpZ M52QXebEMDxLsZbzAHyuz1x pOSshALqDTE8iZ8rxHKyc5P daSTxVDrqdZpuQu01RUNfQP bxr6Mxrvnio7YcjT2lxwFrq 0urGoCsGMh1BAsjs0RfSkcw dCB3GYHwGOQvBVXhARghqoK 9a4VpRERpTEY3e31qgBkmPf dux1Olq0VknCPwlZMvpBElf I1dYLPhveNcnPBhRFDfySHu E8SbY2xeeHewAB4pj0Otk4L grFfsHUrsYrLjK9PhKWElgO qybnJxLV3gz3BbHICmBgHOu GSaPEMuiiUfJaZcz3ieLDLd tMsnhL7gbXCdRpT5t25wBJb wcGVsLUxpbmRhdSBkaXNlYX IzBchmJEUahAOpEWclFB6vj ODadeLvFDBaS7Njx08sHVVf z5awQ6pngjQgxFGydGD5zAB muO6bjBstdT6tsBTwExEldT UjBMEmj4UqyLskOWPrbJe2q UEcZBjbe6PxqV8naBNuwbMq sXWnqDDsLlFtVB8ompcsu3X dDNF8i52wBCY3gBEsIXMqOT O6wS8sprCjVXBeaZwtmytav oWlN1JwRTJnrGW5dPCfbvDm YEX8OKtpuGMzrJFpnBPmDHS cXMJPEsktfE3zvW2sj0QcsK 2aiiazQEH0iQ3dJCBffTdpJ MKtm6eeSj4kGAalz4WndyUi XSLfG4h1l6lvI9ozCABgx47 lflZhbVPrp4L3YL1vxYf2gX JbnPZcMMU2zaFaC3YlBXEcX HPykzZpQN43MDSvu04bvSW6 VQ61BVjsjGwbhLcjTA43nWD fP5yxnPblSS3teRDlCGAhYq B6aFGnnHMiKBvfjy3zmXtiE EJcKN7oz06viPTmh6CzgrD3 gODqTXnzJXqyvmypDUDlt7P yaWJlZCBiZWxvdykuXHBhcl tjBLSnNYreQcWbCK39eTZ8c N7lCR9evnzeheQsnI91sx0t eFQbw7E8dStsHpJokL58pwR 8aH0eoxBoSDrwFOT8fOJrr2 Nqx72dx8HoqI1qfPNnkk6ms DTgVCtlJ94hVocntHkhWrY0 eVLlREjmI21vx4daCF6zDBm jzZTdY3cjRzkgz2JbgNHlJA wvkWNea6Y2RXzqaA1mKINao oFKUyCOZGVvw6twAPjykUCo yXz2ZVOyQ7rxh0LfMnByQYU kLmQziQAzNGQlhoBeE6b7rM Kcb6a8iCWkGR9dlxjgs1GfH YT7p30xUII8RAKvFLNaZWLd kExlgdLvVWAzAIfsM5K3kX2 zIUmwgZMxRiHtHQ2tGGlyYR G4yQ9hFBWwbZgaSNZeXYBpI VukeYt1PCCxy2EdJpEbD7a3 iLN2OlffZJYepIEjCCDvFOD iiIQwoq2sxBYbs1LlvVNyWX 8buT4tvDQyhC9rAXCtdxWpi 26ayhGikaNuz8c7yKRomhGh lEGjTWCcczKlXKZreL2kZ5r yWpMviHMmcFGtLWwxCR1gPr 9zYPExXOshs6noY1ets3cua iVzGGjogdpuAQKkjUk4ENK1 FCL1v3PsmP3vmMpjOAnvSlR oO9QfMJTpoJtcdbPsTK4mu8 HuOTGeXAxlgTsyNO4bSPHzA Zj5INDunDOeQ4vuPgEpfSHs uSFtn9R1gWCpeAkiyGJcoXw lKnw0mhJtjLe7cTKsVEUIQj 0qzGPtskfvxZHjg3XwzF24Q FJxNLmsH9eitKKwROQgkwOf rHY2pJ4sJUxluNztrEvgMUB cNQNqb1KggEEvKAjmTTstr5 LwTaIyMKRxa8JnszOzvoRgt JG6q0dcA7dmZKF7FU6bsgO4 fQ9wWHRbLSXfu5CneRWvIRD oZw89PP4snFNjGBUsgx2= Synoptic Checklist TESTING AND REGULATING CHIEF: Histological (test code = 9864) Assessment (TESTING AND REGULATING CHIEF: HISTOLOGICAL ASSESSMENT - All Specimens) Protocol posted: 08/14/2019 TUMOR Tumor Site: Brain Brain Tumor Sites: Cerebellum Tumor 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 Gross Description [id number] (test code = [id number] [id number]) OchcXipe20sQU3mH20YK3kU QIwJqT8IBYxosG8Xqf3XFKw MWBthOSgC287k2ejx8ubfkP xbYS1wBgcSLTpt0ajPLJemK IaSAJ7DBnlbILaIKMvUKFeX Pv6KTMqTItpyJCkJO2ccJjc MjgknIjxx8SolWVnDStaPEC yUSCpSUccAHPdG8QOCVMcJb ZrOEE1NEVhVXq1KKnvG7XGJ TNvALY6Pnw4WbBwHyG5MMi5 HAVHDs5yBxP2ONKjZHRkPDY 0Tgj2EZqrzTVoBQrbRdygVQ xmIEFyaWFsIFxcZnMgMTAgX PjwJeXsEM1maYtpiBVbfsjt XGZzMjAgQTpccGFyXGYwIEN tipUtAOvmmL0kHFrfDcZnRS ymq0qevrftViIgQUPoY2Sxv kJqWYQvDJWtCTRtmeWlbw94 FN5mk6FewAetzoLumtKcqPH xxBumuQHjmDViLAu6gTAtDZ Edu9YkWM58QVVqmOqoI3KdP L5nJH4smfZzR4EaUEZiwI8y VDLlmrOmlQfvxYZjgQ9pELA my2G3XRWhLX2yNNwgQE39UN whOD2qMDJkMHafHSOkA0IlJ 1H3EUdcFTFEQILxBITas0P0 k3GzRCL7rBIyFNIkFkBAhVQ lLiAgQSBjcnVzaCBzbWVhci VctyKzMMBku5QgTVFbFJMAR I5hgN6wCRPts8Dqy1SqT6ar NQ8eIZ54sPOfvYyfs3PjxGq 7eQSwRXTmFGJobPugl9M2AX BzqonmRLCrW6XQCVhOYhJRA 0RFOiBBMSwgMSBwaWVjZSwg rhWokzVdIZ13FJRfpfQiLk3 hFRVmt4gdqiLnLVI8sJ9fYc UKGiaqnkEcQPvfYMFoHP3pF MVqNTExnUGbOIGvVYCluD5l NMXyrZPpOULmn5CyG8F6BEQ sLFbnc8ksOMUcEFisf1JjJD bNZWDSLV3BWS7fhYG2GKuKQ 2TOZ0lTgWPdHSK0bBX8XWAJ OkladMH7fDC6kL42ABUjRJS cjLDzNQknV882LUC8QSPjNX oat7onVKXkNRwyo3IdBKgEX SWRUB6EOF1krTT8YExMG2WR VWyhIYZiLdcdeBXBQMJ1KGo ptTfteIp2z6ofwPQwb9m3FS cqHSQ8dRwauTVxevilsxCva 6fbdGaph0YczKZfSZfwWSTr uUCqDSyfpG1sOvRnk9mtqRt 2LWkxqiS5QWXboa60ZPpyWR XpB8ScD9XwJPwvKSL8QFXnU iCfRXQuTM4ALlWlNHLrWed3 FOtdISj3LSj0GY3WOnWgFWX eSQe0LAq0WzDwGWd5FJylYE 4HEUykHRSwZiD7KlB1NZI9W CBcXHQgMiBcXGZsIFxcZiBB cmlhbCBcXGZzIDEwIFxcZmI mNPqzR81bRkaaOZJEZgqpZK WhIlMcF4VgEKSdzQp6yEqtd GOpwIjwzAKjiQ6xLYDtW7E5 UTh9r4KgNBZ1MORkmRAoPjz iMCAgQSAxLjIgeCAwLjkgeC FqCzFcC54lPMQbsuGeTNLqw 49gkKV2lXHntYNtTuJqK56i xdQpPNCsWEYfeVYkwX6wcoV smtUuxHUjxFC6LEZiYL17kK BhmOsuxP1odmBlNSReR8yvX Iirl9KuHT5hyPbyVUkccv24 CUL2j3grbTDiKMezYkltgMJ xqdL8ZVxZYBWUGPuPUnLhJL 1lPUxJTktCRUdJTnwyMTAxN qaxbHWRNGK9NBzlgAtmbIi1 l7ifjCVow4v6TWszSSF5gVS Nt6bnhJZzONyiMmvjkLSkai U5YMeBQCHPZEjOQySnQL6qV ZsSEylBQwF8LfBmJQQ5DufM D0UWjCZ8Szi0NXg8aQwpJsb nagMytVKaInMnjP7deHghcR 9fQuUjXLmaWGFzV1GcM0Whn vHwzZIzVCZaswSvo2hhALL6 XHNsbXVsdDBcZnMxNlxwYXJ 9m0zzSARteITdKJA1TQywpA QgNTEwMDIgXFxkYiBPVlIgI xRSVAL2MPo8MvT7LXv2TZFY HnSjCjXqHPL3EWp3SdAtUCr 1WHm0OTzPWdM7MUdoWUE2CG ZgMFN4XZlhUDl7TUInJRhpu CBcXGYgQXJpYWwgXFxmcyAx NZTlDJDyDChkhfB6MLBmMwM gQzpccGFyXGYwIENlcmViZW ztlI4hLQqiKsWqOVmva0qho jpcYjAgIFNwZWNpbWVuIGNv lhMmg2DxVF6kBWEww7JdmIZ oxEQxAjG4FT9ktVrwehE3kk I4XL4vzLKjiR18EQzifA6ed azgZ3yiNQJkEqPldHcze0Qq EQ2nGQW7podrTeSnYmidpOJ uGyPglTUfUysjO87fVBZAGD KiibSfn21xr9NmdCepINLbD KLjkMMsNLscGFJ2Vf2nbAMp ATV7bpT3pEOvaQJxbtRvONZ hH3pnZbLjt4lhXiDkYHErjT IzaG1dw1aaPIXAiDRnrhJdE DmjdX9rPAQuTNVcvOSzGYkw AWQ5Uy7jySCgJOZlhoBtfbB vmKAikcNtJWOuAQH7MAGzSx KmZsAwORqrfc88OCU3m2ntx GUyHGgkEqaieXJlybO3FKoF OJDUFGxIEkWjBJ8tORtGZuk CRUdJTnwyMTAxNnwzfFVTRV O5UXltiRiuoVt9q6renNWvs 9d7XRwaUOP8mEBLe0smbGCl AOoeEmklxXOyokA1KWyMELV MOSrFNhWxIQ9lVEzLFzfXXi Y0PdBmTZT8K0yHR3XMbIR6T yr2IRc4pYkgLshcpgKxxMKj YrKyhK3anUkphA1bBxKuJLk xKZLtP6KdC3QldiL7u2jblO emt7UxzZHlHG1ifCKgqO== Intraoperative u7bhxGDvWMOceKB0VaPnMCB Evaluation (test code ak9jdm1UpfSPmxTUrPSmsgQ = [id number]) DtenPmcd24wPQ9zA70ZL5vH MAlZsV4UNUlofH4Vuq9CAPy FVWnlHDwT897h5qgm1gsuwH yhDH7fWqpMDLna0soMWYkuT QaXMM5CJdpbKQxQUZqJFVxL Fk5TTLiEWyfuNNqHO5otOhw OundsDarl4DkdTZpGKpuNCT jIVCqGDyjTATnB8TLSODhBw NwTWR7VLKsQCx4RSnqV2GKY VGlRDN4Cir8XbNjOrL6UVp7 RWAGBq5uHmD0GNX5GMDvLKE 6Rob2LMjcnOMvPVcoQxzxVW xmIEFyaWFsIFxcZnMgMTAgX DiuGzRlXT1dgWmdtQUqawnr XGZzMjAgQTpccGFyXGYwIEN ukgPvLYmhwK9lSAuzNuCyDT OkEMNgu58bOnqmEJYkhLv7F bGvxLbiNuWfDOMhII8QE2LT QVNNIFBSRVNFTlQuIERFRkV NEENVJFTZId2HFeKKSJ5yMy RILyBccHJvdGVjdHtcZmllb FA7WElfBmbxxI4fzGINOPKN PgbDKabuidYoLR5UFH2YXvQ SKB76XvIbOOS2NZeNN6MNmP F2Sfo1AOc6rUdkJqhpioGrk KEcApGkeS5JK2wgFpdwtEU7 UQcwNymmsL4lvIXCZQQZNcq SJlrgfnOzQC7SUP8UWT1SuD TyQSW3oRF6XYQTHpdqyPF5t HZ0hB21THGcGWWdoYYqCQfx W764NINsKOcsRPDvGoHroRH cEDWifxQ3IXAbvFHhTQK0OG 7gxOceKSViE8RjE3OuiiE6N HBhcn0= Disclaimer (test code g0sneHKeYPRrkDLhVnUsTVY = 9844) bVVNvs0ivMYUiaTPqTrDmMy NcZnRuYmpcdWMxXGRlZmYwe 8ets467nRCkc6pcXFVrBqW6 lQKnOFXsySOqL517PXCfLQk xq6twu6JpABKtqABvj9F9AY KIayuinGo5pFiiL51fo1Z0N emgA8dhUSLlIMVjH2LcDX6q GVJoUhi3GNM6ZQB3NVIjLGJ aR0WbKM0bTPQftIZnUWj1l1 nolWioMLBwWLN6j0pcIDnmt zCkUN3mnh7rfKy3s6gyowGs VBIxDAPxwXZNZITlO2KrwCo kRn1ujXe0yTtePjxsLWM4Kz y2DE8sab57yxe9cRqgAAGst aweGlM9KTqeIXYtzkgxLQa7 XKidACKzoIT5JWAdbCUjW1H jSDTwQW7kaed6ZBT5ZIbbQV NvXhO2AURhyZQtATOhfNiiU Gtar455DQV3NlPbHO8vX3Ix l6Y6pB8ihUXkWGQfdNKaGwR yNOIajd9cqTUjELrzy4YmTJ L1qnV9xCTmvVSaOTDrOP30T tlto5VrHtlzXBN3IDLdywAg z6Jqh0auIaDyuhXoM5muJ6Y yZHJoZWFkXHBnYnJkcmZvb3 Rae1MdhMRchEc0m9zbEVLoM WAlcJwkg5bwJVA1FYEyK1H9 iWWrp7giKVhwJGMcrTD5euZ 6RSVjnLWoW8SjaP4aJSCiTA 3nguj7b9ogDDW2TOihRJTkQ cX8neI1TWMjsQYpZFWwkVps YBprl077UIB4QxInSFMud5Z dL3QnuIhfY22lkFywM31rVL SyxDlzrW1fnHmemP7dDhPeC nMyNFxxbFxwbGFpblxmMVxm syF9BNatxslbQUJeVXpfU3s cZrFtTQTkzMllTAara5ZzAQ MlYEJqJrrdnfM2HYQPo25lJ AQjq6OaKICsjW8ikWHjMJno mvDjlGM2KEndbeEjAgQzfbX xKUIaqH3rRLKvLM0hAXVxee Sbmn5hntYmGUJxGXShJ8Rzw ixbvMgnhmPeLFCsxt7evxFm DBO9ZNJPRE0CGOBdREIqh72 vDBUagAyyoP6grLBscgQpPV Nac5DfpO2xwDSVRQQbN7bpO B1rCNzah9KtrIKsyKYlfFA3 UGGrc8AxRpCnxzHxoSTetVJ hB0NibPzyV4ywYTMiZASsla WslHAbr9AnVOKfpJY0aBYeW B5ORiEGx55aWDGpUCGSsdUj TEFwlUhorZG5xuS5fF5vDvV JZiBhcHBsaWNhYmxlLCBjb2 48gl5labG5OEBoWSZuenoxc 0IaCIChYZRfnC98QBTgMMVy fl7kcpzqjJPkhzLcC8Zivhi 2pL2uRVJaJCxjCGPoTHKtKu JcbGFuZzEwMzNcaGljaFxmM RkwJwJnHYUvMSwlO5ljRvOd ZnMyMlxwYXJ9 MD DelarosaUric [id number] 23:39:37 Test Item Value Reference Range Interpretation Comments Uric Acid (test code = 7955) 3.1 mg/dL 3.4-7.0 L Lab Interpretation (test code = Abnormal 32710-1) MD DelarosaOsmolality Wrcqb8517-50-86 23:31:06 Test Item Value Reference Range Interpretation Comments U Osmolality (test code 601 See_Comment Urin barbra osmolality may = 7785) vary widely, de pending on the state of hydration. [place] om urine osmolality can range from 50 to 1400 mOsm/kg H2O depending o n fluid intake. In benedict viduals on average flui d intake, urine osmolalit y is typically 300-9 00 mOsm/kg H2O.Uni ts of measure: mOsm p er Kg of water. [Automa bam message] The sy stem which generated this result transmit bam reference range : 50 - 1,400 mOsm/kg H 2O. The reference range was not used to interpr et this result as normal/abnormal . MD DelarosaSodium Level, [id number] 23:21:57 Test Item Value Reference Range Interpretation Comments U Sodium (test code = 146 mEq/L Normal range not available 7809) for collections less than 24 hours in [facility], [place]. MD D[id number] 19:17:24 Test Item Value Reference Range Interpretation Comments Osmolality (test code = 272 See_Comment L Unit s in mOsm per kg 6571) of water. [Auto mated message] The sy stem which generated this result transmit bam reference range : 275 - 300 mOsm/kg H 2O. The reference r isrrael was not used to interpret this result as normal/abnor mal. Lab Interpretation (test Abnormal code = 04024-7) MD DelarosaX-ray Chest 1 [id number] 14:30:45No evidence of acute disease. Interface, Radiology Results In - 09/29/2020 9:33 AM CDT FULL RESULT:Examination: XR CHEST 1 VW, 09/29/2020 8:57 AMClinical History: Brain massIndication: FeverComparison: 09/23/2020Technique: Anteroposterior radiograph of the chest.Findings:No consolidation. Calcified granulomas in the lungs. There is no pleuraleffusion or pneumothorax. There is no mediastinal or hilar adenopathy. Cardiac silhouette is normal. IMPRESSION:No evidence of acute disease.MD Holguin ABG+ (ABG, Na, K, Cl, Glu, Hct, Lactate, Ion Ca)2020-09-25 15:13:29 Test Item Value Reference Range Interpretation Comments OR Sodium, arterial 134 See_Comment L [Automa bam message] (test code = 2947-0) The sys tem which generated this result transmitted ref erence range: 136 - 14 6 mEq/L. The refe rence range was not u sed to interpret this result as normal/abnor mal. OR Potassium, 3.4 See_Comment [Automated me ssage] arterial (test code The syst em which = 3498-4) generated this result transmitted ref erence range: 3.4 - 4. 5 mEq/L. The refe rence range was not u sed to interpret this result as normal/abnor mal. OR Chloride, 104 See_Comment [Automated mes ana paula] arterial (test code The syst em which = 2479-3) generated this result transmitted ref erence range: 98 - 106 mEq/L. The refe rence range was not u sed to interpret this result as normal/abnor mal. OR Glucose, arterial 124 mg/dL 70-105 H (test code = 2339-0) OR Hemoglobin, 12.7 g/dL 13.5-17.5 L arterial (test code = 77162) OR Hematocrit, 39 % 42-52 L arterial (test code = 62539-4) OR Lactate, arterial 1.2 mmol/L 0.4-0.8 H (test code = 09904-2) OR Ion calcium, 1.12 mmol/L 1.15-1.29 L arterial (test code = 1993-) OR pH Art (test code 7.51 7.35-7.45 H = 2744-1) OR pCO2 Art (test 27.2 See_Comment L [Automate d message] code = 2018-) The system [employer] generated this result transmitted ref erence range: 35.0 - 4 8.0 mmHg. The refer ence range was not u sed to interpret this result as normal/abnor mal. OR pO2 Art (test 330 See_Comment H [Automated message] code = 2703-7) The system [employer] generated this result transmitted ref erence range: 83 - 108 mmHg. The reference r isrrael was not used to interpret this result as normal/abnor mal. OR HCO3 Art (test 22 mmol/L 21-28 code = 1960-4) OR Anion Gap, 8 mmol/L 7-16 arterial (test code = 9327) OR Base Excess Art 0 mmol/L -2-3 (test code = 1925-7) OR O2 Sat Art (test 99 % 95-99 The ABL9 0 Flex Plus code = 6532) analyzer is an in vitro diagnosti c portable, autom ated analyzer that measures pH, bl ood gas, electrolyt es, hemoglobin, glu cose and lactate in whole blood. This deidra lyzer uses the methodologies n oted to perform quantitative measurement of the parameters list ed when tested.1) pH, pCO2, K+, Na+ a nd Cl- are measured by potentiometry. The potential of an electrode chain is measured by a voltmeter, and related to the concentration o f the sample.2) Gluc ose and Lactate are measured by amperometry. Th e magnitude of an electrical curr ent that flows thro ugh an electrode chain is proportional to the concentration o f the substance that is oxidized or red uced at a electrode in the chain.3) pO2 i s measured by opt ical pO2. The optica l system for pO2 is based on the ab ility of O2 to reduce the intensity and t antony constant of the phosphorescence from a phosphorescen t dye that is in cont act with the sample .4) Hemoglobin and sO2 are measured by spectrophotomet ry. Light passes th rough a cuvette that contains a hemo lyzed blood sample. T he absorption spec trum is used to calc ulate oximetry parame ters. FLOW/ FiO2 (test 52% code = 5568) LISA (test code = EtCO2 23FiO2 LISA) (%):->52 Lab Interpretation Abnormal (test code = 90953-7) MD DelarosaFree [id number] 09:42:20 Test Item Value Reference Range Interpretation Comments T4 Free (test code = 7502) 1.08 ng/dL 0.93-1.70 MD [id number] 11:59:00 Test Item Value Reference Range Interpretation Comments TSH (test code = 7578) 0.19 See_Comment L [Aut omated message] The system MST generated this result transmitted ref erence range: 0.27 - 4 .20 mcunit/mL. The reference range was not used to int erpret this result as normal/abnormal . Lab Interpretation (test Abnormal code = 81113-6) MD DelarosaHemoglobin [id number] 11:15:14 Test Item Value Reference Range Interpretation Comments A1C (test code = 5.1 % 4.3-5.6 HbA1c value s >=6.5% are 4632) diagnostic of d iabetes mellitus.Diagno sis should be confirmed by repeat testing.Therape utic Action suggested: >8.0 % HbA1c; Goal oftherapy: <7.0% HbA1c MD DelarosaCT Chest Abdomen Pelvis with [id number] 06:39:02 Few tiny indeterminate noncalcific pulmonary nodules may be postinflammatory/granulomas in view of coexisting numerous calcific bilateral pulmonary nodules. Indeterminate 0.9 cm left adrenal nodule may be benign, however to be followed. Cholelithiasis is seen. No evidence of biliary ductal dilatation. Moderate colonic fecal material. Mild mural/mucosal thickening of the distal small bowel may be inflammatory/infectious or therapy related, to be correlated clinically. No intestinal obstruction. No definite active metastases in the chest, abdomen and pelvis.Interface, Radiology Results In - 09/24/2020 1:41 AM CDT FULL RESULT:Examination: CT CHEST ABDOMEN PELVIS W CONTRAST, 09/23/2020 7:20 PMClinical History: A 65 y.o. 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 Few tiny less than 0.5 cm noncalcific pulmonary nodules (examples 4/48, 53, 56, 65) may also be postinflammatory/granulomas, however these may be followed. No definite suspicious pulmonary nodule is seen.Mild fluid in the lower pericardium may be physiologic or trace effusion. No pleural effusions. Atherosclerotic calcifications along the coronary arteries. Tiny sliding gastroesophageal hiatal hernia. No suspicious lymphadenopathy by size criteria.[ Abdomen and pelvis ]The 2.6 cm and 2.2 cm gallstones are seen. No evidence of gallbladder wall thickening, and no evidence of pericholecystic fluid or inflammatory fat stranding for CT evidence of cholecystitis. No biliary ductal dilatation. No focal suspicious liver lesion.Unremarkable pancreas, right adrenal. The indeterminate 0.9 cm left adrenal nodule may be benign, to be followed. Tiny calcific nodule/granuloma in the spleen. Subcentimeter indeterminate renal hypodensities may be benign and followed.Median prostatic lobe indenting at the base of urinary bladder. Mild prominence of the urinary bladder wall may be due to underdistention or chronic postobstructive hypertrophic changes.Mild mural/mucosal thickening of the distal small bowel may be inflammatory/infectious or therapy related, to be correlated clinically. The 2.5 cm periampullary duodenal diverticulum is seen.Moderate colonic fecal material. Colonic diverticulosis. Unremarkable appendix. No suspicious lymphadenopathy by size criteria.Prominent tortuous vessels the scrotum, may be varicoceles and correlated with ultrasound. Retroaortic left renal vein, normal variant.[ Bones ]Degenerative changes in the spine.No definite active metastases in the chest, abdomen and pelvis. Mild grade 1 retrolisthesis of L5 over S1 vertebra. The 1.4 cm sclerotic focus in the left sacrum may be benign bone island and followed. No suspicious destructive bony lesion.IMPRESSION:Few tiny indeterminate noncalcific pulmonary nodules may be postinflammatory/granulomas in view of coexisting numerous calcific bilateral pulmonary nodules.Indeterminate 0.9 cm left adrenal nodule may be benign, however to be followed.Cholelithiasis is seen. No evidence of biliary ductal dilatation.Moderate colonic fecal material. Mild mural/mucosal thickening of the distal small bowel may be inflammatory/infectious or therapy related, to be correlated clinically.No intestinal obstruction.No definite active metastases in the chest, abdomen and pelvis.MD DelarosaX-ray Chest 1 View [id number] 17:00:14No evidence of acute disease. Interface, Radiology Results In 09/23/2020 12:02 PM CDTFormatting ofthis note might be different from the original.FULL RESULT:Examination: XR CHEST 1 VW PORTABLE, 09/23/2020 11:56 AMClinical History: Cerebellar lesionIndication: Other:, preop, Negative COVID- 19 Test ResultComparison: NoneTechnique: Single portable anteroposterior radiograph of the chest.Findings:The lungs are normal. There is no pleural effusion or pneumothorax. There is no mediastinal or hilar adenopathy. Cardiac silhouette is normal. IMPRESSION:No evidence of acute disease.MD DelarosaMRI Brain without [id number] 10:58:32Please note the exam is incomplete, this dictation is based on axial FLAIR and DWI sequence only. 1. Left cerebellar mass with surrounding vasogenic edema and mass effect on the fourth ventricle, resulting in mild hydrocephalus.2. Cerebellar tonsillar herniation. The preliminary report was discussed with Dr. Paul in the emergency department at 543 AM on 09/22/2020. I personally reviewed these image(s) along with the resident's/fellow's interpretations, certify that if a procedure was performed I was physically present, and agree with the final report.Interface, Radiology Results In 09/22/2020 6:00 AM CDT EXAM: MRI BRAIN WITHOUT CONTRASTDATE: 09/22/2020 5:16 AMINDICATION: Not for stroke, trauma, headache, sinusitis, or syncope; Brain mass, neoplasm suspectedCOMPARISON: None.HISTORY: This patient is a 65 y.o. male who presented to an outside emergency center yesterday with 6 weeks of progressive headaches, nausea, weight loss (~20lb), gait instability and fatigue. CT head was performed which reportedly revealed a large left cerebellar cystic mass with effacement of the fourth ventricle and ventriculomegaly concerning for obstructive hydrocephalus. CT chest, abdomen and pelvis was also performed with no significant abnormality. The patient was transferred here for neurosurgical evaluation. TECHNIQUE: Limited MRI brain without IVcontrast was performed. FINDINGS: After completion of axial FLAIR and DWI sequences the patient declined to continue and the exam was terminated.A mildly T2 hyperintense 4.0 x 3.2 cm left cerebellar mass is present with surrounding vasogenic edema and mass effect on the fourth ventricle. The lateral ventricles and the third ventricle are dilated, though third ventricle measures 1.2 cm.The left cerebellar tonsil herniates below the foramen magnum, with mass effect on the medulla.IMPRESSION:Please note the exam is incomplete, this dictation is based on axial FLAIR and DWI sequence only. 1. Left cerebellar mass with surrounding vasogenic edema and mass effect on the fourth ventricle, resulting in mild hydrocephalus.2. Cerebellar tonsillar herniation.The preliminary report was discussed with Dr. Paul in the emergency department at 543 AM on 09/22/2020.I personally reviewed these image(s) along with the resident's/fellow's interpretations, certify that if a procedure was performed I was physically present, and agree with the final report.MD DelarosaConfirm [id number] 10:52:03 Test Item Value Reference Range Interpretation Comments ABORh Confirm. (test code = 882-1) O POS MD DelarosaCHEM [id number] 01:26:54534Lnlmuboq HermannCHEM [id number] 01:26:0018[facility]annCHEM [id number] 01:26:001.00[facility] HermannCHEM [id number] 01:26:18995Bbbzabcm HermannCHEM [id number] 01:26:004.3 [facility]annCHEM [id number] 01:26:23631Ygxkpwfr HermannCHEM PANEL 2020-09-22 01:26:0030[facility] HermannCHEM [id number] 01:26:0010.1[facility]annCHEM [id number] 01:26:008.7[facility] HermannCHEM [id number] 01:26:004.6[facility] HermannCHEM [id number] 01:26:0027[facility] HermannCHEM [id number] 01:26:0027[facility] HermannCHEM [id number] 01:26:0070 [facility]annCHEM [id number] 01:26:001.0[facility] HermannCHEM PANEL 2020-09-22 01:26:0010.3[facility] HermannCHEM [id number] 01:26:00 Test Item Value Reference Range Interpretation Comments B/C Ratio (test code = B/C Ratio) 18 1 6-25 [facility]annCHEM [id number] 01:26:004.1[facility] HermannCHEM PANEL 2020-09-22 01:26:00 Test Item Value Reference Range Interpretation Comments A/G Ratio (test code = A/G Ratio) 1.1 1 0.7-1.6 [facility]annCHEM [id number] 01:26:0080[facility] HermannCHEM PANEL 2020-09-22 01:26:04839Vdakannl HevvdfiFDFZIXQYJQ2690-42-49 01:26:007.8[facility] YeaspcaQJGRHARUPB6401-46-45 01:26:005.71[facility] SpsavlaJGIYQUIPKB3844-05-31 01:26:0017.1[facility] CellailZUCEHGHXVH2494-90-18 01:26:0049.7[facility] Ishan [id number] 01:26:0087.1[facility] [id number] 01:26:00 Test Item Value Reference Range Interpretation Comments MCH (test code = MCH) 29.9 pg 27.0-31.0 [facility] [id number] 01:26:0034.3[facility] HermannHEMATOLOGY 2020-09-22 01:26:0014.3[facility] PwglmqaPCBXZNNYJM7039-48-35 01:26:47774Zvuqptpd FtfzzypDZUCJUYTPV1118-50-78 01:26:0010.2[facility] WzzaqplHPSIAEVYEZ5860-70-86 01:26:0067.8[facility] NidfdfqYYBHPYMBWL6331-08-52 01:26:0017.3[facility] [id number] 01:26:0012.6[facility] IgbpkkuZJZLYUZIID2705-80-33 01:26:00 1.6[facility] LxkbbljHACQMBEGIW3519-92-33 01:26:000.7[facility] HermannHEMATOLOGY 2020-09-22 01:26:005.3[facility] MmywakaZDCNBKKVVP0696-88-93 01:26:001.3[facility] KdymiwqMOCCNIBNQA4408-08-46 01:26:001.0[facility] RdrzbrqHJXCZQKRTY5344-70-87 01:26:000.1[facility] [id number] 01:26:000.1[facility]annURINE AND [id number] 01:25:00 Test Item Value Reference Range Interpretation Comments UA Spec Grav (test code = UA Spec 1.033 1 Grav) [facility] [id number] 01:25:00 Test Item Value Reference Range Interpretation Comments UA pH (test code = UA pH) 5.0 1 5.0-8.0 [facility] [id number] 01:25:00Small *ABN*(09/21/20 8:25 PM) [facility] [id number] 01:25:00Negative (09/21/20 8:25 PM) [facility] [id number] 01:25:004.0[facility] [id number] 01:25:00Negative (09/21/20 8:25 PM)[facility] STOOL 2020-09-22 01:25:00Negative (09/21/20 8:25 PM)[facility] STOOL 2020-09-22 01:25:003[facility] [id number] 01:25:002[facility] AND [id number] 01:25:00Amber *ABN*(09/21/20 8:25 PM)[facility] [id number] 01:25:00Clear (09/21/20 8:25 PM)[facility]
[2020-12-04] MEDS ORDERED: CODEINE 30MG/APAP 300MG TAB PO PRN (18:13)
[2020-12-04] MEDS ORDERED: POLYETHYL GLY 3350 17 GM/DOSE PO PRN (18:15)
[2020-12-04] MEDS ORDERED: ONDANSETRON 4 MG (ODT) TAB PO PRN (18:16)
[2020-12-04] MEDS ORDERED: DOCUSATE NA/SENNA CONC 1 TAB PO PRN (18:20)
[2020-12-04 18:29] LABS: Urine Appearance CLEAR (Clear); Urine Bilirubin NEGATIVE (Negative); Urine Blood NEGATIVE (Negative); Urine Color YELLOW (Yellow); Urine Glucose NEGATIVE (Negative); Urine Protein NEGATIVE (Negative); Urine Urobilinogen 0.2 mg/dL (0.2-1.0)
[2020-12-04 18:36] LABS: Urine Bacteria <20 /HPF (NONE SEEN); Urine RBC NONE SEEN /HPF (NONE SEEN)
[2020-12-04] MEDS: FAMOTIDINE 20 MG TAB PO SCH (19:50)
[2020-12-04] MEDS ORDERED: DOCUSATE NA/SENNA CONC 1 TAB PO SCH (21:00)
[2020-12-05] MEDS: METOPROLOL TAR 25 MG TAB PO SCH ×2 (05:04→16:41)
[2020-12-05 06:20] LABS: Absolute Lymphocytes (CBC) 1.6 K/uL (0.7-4.9); Basophils % 0.3 % (0-1.3); Hematocrit 33.6 % (39.6-49.0); MPV 9.2 fL (7.6-11.3); RBC Red Blood Cell Count 3.73 M/uL (4.33-5.43)
[2020-12-05] MEDS: FAMOTIDINE 20 MG TAB PO SCH ×2 (09:07→19:32)
[2020-12-05 09:14] LABS: BUN Blood Urea Nitrogen 6 mg/dL (7-18); Bicarbonate 32 mmol/L (21-32); Glucose Level 63 mg/dL (74-106); Magnesium 1.8 mg/dL (1.8-2.4); Potassium 3.5 mmol/L (3.5-5.1); Prealbumin 24.2 mg/dL (20-40); Sodium Level 144 mmol/L (136-145)
[2020-12-05] MEDS: POTASSIUM CL SA 10 MEQ TAB PO SCH (10:16)
[2020-12-05] MEDS: AMLODIPINE 5 MG TAB PO SCH (10:17)
--- NOTE | 2020-12-05 16:42 | R.HP ---
HISTORY AND PHYSICAL FACILITY: [facility] ENCOUNTER DATE AND TIME: 12/05/2020 14:38 (CDT) MR#: [id number] NAME ASHLEY PARKS ADDRESS: [address] [place] [address]: [place] ZIP [id number] PHONE: DATE OF : 1955 AGE: 65 SSN# [id number] GENDER: Male MARITAL STATUS PRE-HOSPITAL LIVING SETTING 01 - Home (private home/apt. board/care, assisted living, usp, transitional living) PRE-HOSPITAL LIVING WITH Family/Relatives ENCOUNTER PHYSICIAN: Dr. Sergio Huitron M.D. REFERRING DOCTOR: omari Quinn DATE OF ADMISSION: 12/04/2020 15:08 (CDT) REFERRING FACILITY [facility] HOME TYPE AND DETAILS: # of levels in the residence: 0 # of steps within the residence: 1 # of levels in the residence: 1 ONSET DATE: 11/03/2020 PRIMARY DIAGNOSIS-RELATED SURGERIES: ANTERIOR CERVICAL FUSION INFRATENTORIAL CRANIECTOMY FOR EXCISION OF BRAIN TUMOR HISTORY OF PRESENT ILLNESS (HPI): Pt. is a 65 yo Right-handed male. On 11/03/2020 he was admitted to [facility] with diagnosis MASS LESION OF ALIA. His impairment category is Brain Dysfunction 02 - Other Brain (02.9). Pre-morbidly, Pt. was independent/mod-I in Safety Awareness, Self-Care, and Communication; and he had good Endurance and Transfers Control. Currently, he has deficits of Locomotion, Transfers Control, Sphincter Control, Endurance, and Safety Awareness. Pt. is now referred to [facility] for acute in-patient rehabilitation in order to maximize patient's functional independence in activities of daily living, strength, ROM, and mobi lity. Patient has realistic goal of being discharged at assistance level 7-Ind to reside at Home with Fami ly/Relatives. MEDICATION ALLERGIES: No Known Drug Allergies (NKDA) ENVIRONMENTAL ALLERGIES: - Substance Allergies None Known - Other Allergies None Known PAST MEDICAL HISTORY: ARTHRITIS MIGRAINE FALL PRECAUTIONS SEIZURE PRECAUTIONS COGNITIVE IMPAIRMANTS PAST SURGICAL HISTORY: NV EXCISE INFRATINT BRAIN TUMOR LEFT 09/25/20 INFRATENTORIAL CRANIECTOMY FOR EXCISION OF BRAIN TUMOR S/P LEFT SHUNT PLACEMENT SOCIAL HISTORY: - Home Living Family/Relatives REVIEW OF SYSTEMS: - Gen No Chills Fatigue No Fever - Eyes No Double Vision No itchiness - ENMT No Difficulty Swallowing - CVS No Chest Discomfort No Chest Pain No Fatigue No Weight Gain - Resp No Cough No Shortness of Breath - GI Continent No Abdominal Pain No Constipation No Diarrhea - Continent No Kidney Pain No Painful Urination No Urinary Urgency - MSK No Joint Pain No Muscle Cramps Stiffness - Skin No Itching No Rash No Suspicious Lesions - Neuro Coordination Difficulty No Difficulty with Concentration Memory Loss No Seizures Weakness - Psych No Anxiety No Depression No HIV Exposure No Persistent Infections No Seasonal Allergies - Endo No Cold/Heat Intolerance No Excessive Hunger No Excessive Thirst No Excessive Urination PHYSICAL EXAM - Gen Alert and awake Lying in bed No apparent distress Oriented to: person, time, and place - Skin No breakdown Left frontal shunt in place with rehan - Eyes No abnormalities - ENMT No abnormalities - Neck No abnormalities - CVS RRR - Resp CTA bilaterally - Abd Soft - GI Soft Deferred - No abnormalities - Ext No significant edema - MSK 4/5 weakness in both lower extremities. - Neuro No focal deficits - Psych No abnormalities VITAL SIGNS Temperature: 98.5 F SBP/DBP: 118/56 Pulse: 63 Resp: 16 NURSING: - Shower allowing shower - Bladder care per protocol - Skin care per protocol ACTIVITIES OOB only with supervision QI SCORES: - Self-Care A. Eating 04-Supervision or touching assistance B. Oral hygiene 03-Partial/moderate assistance C. Toileting hygiene 03-Partial/moderate assistance E. Shower/bathe self 03-Partial/moderate assistance F. Upper body dressing 04-Supervision or touching assistance G. Lower body dressing 03-Partial/moderate assistance H. Putting on/taking off footwear 88-Not attempted due to medical condition or safety concerns - Mobility A. Roll left and right 04-Supervision or touching assistance B. Sit to lying 03-Partial/moderate assistance C. Lying to sitting on side of bed 03-Partial/moderate assistance D. Sit to stand 03-Partial/moderate assistance E. Chair/hfy-lv-rppsu transfer 03-Partial/moderate assistance F. Toilet transfer 03-Partial/moderate assistance G. Car transfer 88-Not attempted due to medical condition or safety concerns I. Walk 10 feet 03-Partial/moderate assistance J. Walk 50 feet with two turns 03-Partial/moderate assistance K. Walk 150 feet 03-Partial/moderate assistance L. Walking 10 feet on uneven surfaces 88-Not attempted due to medical condition or safety concerns M. 1 step (curb) 88-Not attempted due to medical condition or safety concerns N. 4 steps 88-Not attempted due to medical condition or safety concerns O. 12 steps 88-Not attempted due to medical condition or safety concerns P. Picking up object 88-Not attempted due to medical condition or safety concerns R. Wheel 50 feet with two turns 88-Not attempted due to medical condition or safety concerns S. Wheel 150 feet 03-Partial/moderate assistance - Bladder and Bowel Bladder continence Bowel continence - Endurance Fair - Balance Fair - Safety Awareness Fair CURRENT FUNC. DEFICITS: Self-Care, Mobility, Endurance, Balance, and Safety Awareness MEDICATIONS: - Other See attached MAR (Medication Administration Record) ASSESSMENT: Pt. is a 65 yo Right-handed male.On 11/03/2020 he was admitted to [facility] with diagnosis MASS LES ION OF ALIA.His impairment category is Brain Dysfunction 02 - Other Brain (02.9).Pre-morbidly, Pt. was independent/mod-I in Safety Awareness, Self-Care, and Communication; and he had good Endurance an d Transfers Control.Currently, he has deficits of Locomotion, Transfers Control, Sphincter Control, E ndurance, and Safety Awareness.Pt. is now referred to [facility] for acute in- patient rehabilitation in order to maximize patient's functional independence in activities of daily living, strength, ROM, and mobility.- Rehab Goal Patient has realistic goal of being discharged at assistance level 7-Ind to reside at Home with Fami ly/Relatives. REHAB PLAN: - Physical Therapy Gait dysfunction - to improve, our physical therapists will perform initial evaluation of pt's status upon admission and devise an individualized program for Gait Training, and Wheel Chair mobility Inability to transfer - to improve, our physical therapists will perform initial evaluation of pt's s tatus upon admission and devise an individualized program for Bed mobility Need for home safety evaluation - to improve, our physical therapists will perform initial evaluation of pt's status upon admission and devise an individualized program for Home Evaluation Need in caregiver upon discharge - to improve, our physical therapists will perform initial evaluatio n of pt's status upon admission and devise an individualized program for Caregiver Training Edema - to improve, our physical therapists will perform initial evaluation of pt's status upon admi ssion and devise an individualized program for Elevation Training, and Lymphedema Therapy New precaution - to improve, our physical therapists will perform initial evaluation of pt's status u denise admission and devise an individualized program for Patient precaution education Poor endurance - to improve, our physical therapists will perform initial evaluation of pt's status u denise admission and devise an individualized program for Endurance Training Weakness - to improve, our physical therapists will perform initial evaluation of pt's status upon ad mission and devise an individualized program for Aquatic Therapy, Neuromuscular Reeducation, and Stre ngthening Achieving independence - to improve, our physical therapists will perform initial evaluation of pt's status upon admission and devise an individualized program for Community Reintegration Activities - Occupational Therapy Need for assisted living care manager - to improve, our occupation therapists will perform initial evaluation of pt's s tatus upon admission and devise an individualized program for Caregiver Training Weakness - to improve, our occupation therapists will perform initial evaluation of pt's status upon admission and devise an individualized program for Aquatic Therapy, Balance, Endurance, UE ROM, and U E strengthening MEDICAL PLAN: - Diet Type Start Regular - Diet - Liquid Texture Start Regular - Tube Feed Start N/A - Bladder care per protocol - Skin care per protocol - Other See attached MAR (Medication Administration Record) - Diet - Solid Texture Regular - Shower shower DISCHARGE PLAN: - Estimated Length of Stay (days) 13. - Consensus on plan Discharge plan has been discussed with primary caregiver. Patient/Family is in agreement with the marie n. Primary caregiver is in agreement with the plan. - Patient/Family Goals Return home independently. - Planned Living Setting Upon Discharge Home, to live with Family/Relatives. Transitional Living. SIGNATURE PANEL: (CDT)
--- NOTE | 2020-12-05 16:43 | PAPE ---
POST ADMISSION PHYSICIAN EVALUATION PATIENT: [facility] MR# [id number] REFERRING DOCTOR omari Quinn EVALUATION DATE AND TIME 12/05/2020 14:42 (CDT) NAME ASHLEY PARKS DATE OF 1955 AGE 65 PHONE N# [id number] GENDER male EVALUATING PHYSICIAN Dr. Sergio Huitron M.D. ADMISSION DIAGNOSIS: MASS LESION OF ALIA ONSET DATE 11/03/2020 POST-ADMISSION FUNCTIONAL/MEDICAL STATUS: - Bladder Same accident frequency: 7-Ind - No accidents in the past 7 days - Bowel Same accident frequency: 7-Ind - No accidents in the past 7 days - Walking Same score based on distance walked: 0(N/A) Same score based on distance walked: 3(>=150ft) - Wheelchair Same score based on distance traveled: 0(N/A) STATUS CHANGE EVALUATION: No change in Functional or Medical Status is identified compared with Pre-Admission screening. PATIENT NEEDS CLOSE MEDICAL SUPERVISION BY A REHABILITATION PHYSICIAN FOR: Coordination of Treatment Team PATIENT REQUIRES 24X7 REHAB NURSING FOR MEDICAL AND FUNCTIONAL MGT. OF THE FOLLOWING DEFICITS: Disease Management Medication Management Patient/Family Education Providing Safe Environment PATIENT REQUIRES INTENSIVE, COORDINATED INTERDISCIPLINARY APPROACH TO REHAB: Arranging Home Equipment/Services Discharge Planning Family Intervention/Training Compugraph Operator/Case Management LIST OF IDENTIFIED AND POTENTIAL PROBLEMS: Alteration in leisure activities Bladder, Incontinence Bowel, Incontinence Infection, Actual or Potential Mobility Impaired Pain, Alteration in Comfort Self Care Deficit Skin Integrity, Actual or Potential Urinary Tract Infection (UTI), Actual or Potential PATIENT COULD BE AT RISK FOR COMPLICATIONS FROM ADVERSE MEDICAL CONDITIONS DUE TO HIS/HER COMORBIDITI ES AND THE RIGORS OF THE INTENSIVE REHABILLITATION PROGRAM. METHODS OR INTERVENTIONS TO AVOID COMPLIC ATIONS INCLUDE: - Infection Clinical staff to assess and manage the signs and symptoms of infection including fever, redness, war mth, etc. - Urinary Tract Infection - Falls Patient will be evaluated for Fall Precautions and will be placed on Fall Precautions as indicated pe r protocol. - Skin Breakdown Nursing will assess skin daily using assessment tool and will place on Skin Breakdown Precautions as indicated per protocol. - Pain Clinical staff may employ non-medication methods such as massage, distraction, decrease stimulus, etc . as needed. Clinical staff will assess patient's pain level every shift per protocol to assess and e nsure pain management effectiveness. Medications will be given and the pain level re-assessed. PRELIMINARY PLAN OF CARE: - Physical Therapy Patient needs Physical Therapy for a daily minimum of 1.5 hours at least 5 out of 7 days, to improve: Mobility, Strengthening, Transfers, Stretching, ROM, Endurance, Ability to manage stairs, Gait, and Balance. - Speech Therapy Patient needs Speech Therapy for a daily minimum of 0.5 hours at least 5 out of 7 days, to improve: S wallowing, Cognition, Language Skills, and Compensatory Strategies. - Rehabilitation Nursing Patient requires 24x7 Rehabilitation Nursing for: Pain Issues, Identifying and preventing risk factor s, Monitoring and reporting current medical conditions, Assisting with ambulation and transfer, Adam ting with all ADL-s, Teaching patients about disease process and medications, Family teaching, Provid ing safe environment, Bowel and Bladder Issues, Skin Integrity, and Medication Management. Patient needs Compugraph Operator and/or Case Management for: Discharge Planning, Arranging Home Equipmen t or Services, and Family Interventions. - Dietary and Nutrition Services Patient needs Dietary and Nutrition Services for: Adequate Nutrition, Nutritional Supplements, and Nu tritional Education. - Occupational Therapy Patient needs Occupational Therapy for a daily minimum of 1.5 hours at least 5 out of 7 days, to impr ove Activities of Daily Living, including: Eating, Grooming, Bathing, Dressing, Toileting, Toilet Tra nsfers, Community Reintegration, Higher functional activities, Adaptive Equipment, Splinting, Househo ld Tasks, and Other activities as determined. QI SCORES: - Self-Care A. Eating 04-Supervision or touching assistance B. Oral hygiene 03-Partial/moderate assistance C. Toileting hygiene 03-Partial/moderate assistance E. Shower/bathe self 03-Partial/moderate assistance F. Upper body dressing 04-Supervision or touching assistance G. Lower body dressing 03-Partial/moderate assistance H. Putting on/taking off footwear 88-Not attempted due to medical condition or safety concerns - Mobility A. Roll left and right 04-Supervision or touching assistance B. Sit to lying 03-Partial/moderate assistance C. Lying to sitting on side of bed 03-Partial/moderate assistance D. Sit to stand 03-Partial/moderate assistance E. Chair/chf-gl-wplln transfer 03-Partial/moderate assistance F. Toilet transfer 03-Partial/moderate assistance G. Car transfer 88-Not attempted due to medical condition or safety concerns I. Walk 10 feet 03-Partial/moderate assistance J. Walk 50 feet with two turns 03-Partial/moderate assistance K. Walk 150 feet 03-Partial/moderate assistance L. Walking 10 feet on uneven surfaces 88-Not attempted due to medical condition or safety concerns M. 1 step (curb) 88-Not attempted due to medical condition or safety concerns N. 4 steps 88-Not attempted due to medical condition or safety concerns O. 12 steps 88-Not attempted due to medical condition or safety concerns P. Picking up object 88-Not attempted due to medical condition or safety concerns R. Wheel 50 feet with two turns 88-Not attempted due to medical condition or safety concerns S. Wheel 150 feet 03-Partial/moderate assistance - Bladder and Bowel Bladder continence Bowel continence - Endurance Fair - Balance Fair - Safety Awareness Fair POTENTIAL FUNCTIONAL GOALS FOR PATIENT TO ACHIEVE BY DISCHARGE: - Safety Precaution Patient will remain free from falls or injury at time of discharge. - Bed Mobility Patient will perform bed mobility at 4-Sarah level of assistance. - Transfers Patient will complete transfers from bed to chair at 4-Sarah level of assistance. - Mobility Patient will ambulate 150 ft with 4-Sarah level of assistance with RW. PATIENT REHAB POTENTIAL Francis PARKS is able and expected to receive 3 hours of individualized therapy daily on at least 5 of every 7 days Francis PARKS's prognosis for significant practical improvement within a reasonable period of time appe ars Good Expected level of measurable improvement will be of a practical value to Francis PARKS's functional cap acity or adaptations to impairments Has a viable Discharge Plan Medically appropriate; condition is sufficiently stable to participate in intensive rehab program DISCHARGE PLAN: - Estimated Length of Stay (days) 13. - Consensus on plan Discharge plan has been discussed with primary caregiver. Patient/Family is in agreement with the marie n. Primary caregiver is in agreement with the plan. - Patient/Family Goals Return home independently. - Planned Living Setting Upon Discharge Home, to live with Family/Relatives. Transitional Living. CONCLUSION ON REHABILITATION NECESSITY: I have evaluated patient's pre-admission functional status and, comparing it to the patient's post-ad mission functional status now, I conclude that the pre-admission assessment was accurate. Patient's c ondition on admission supports the medical necessity of admission to IR[facility]. It is safe to proceed with patient's therapy program. SIGNATURE PANEL: (CDT)
[2020-12-06] MEDS: METOPROLOL TAR 25 MG TAB PO SCH ×2 (05:01→16:24)
[2020-12-06] MEDS: ASPIRIN 81 MG CHEWABLE TABLET PO SCH (08:30)
[2020-12-06] MEDS: ENSURE ENLIVE 237 ML CAN PO SCH ×2 (08:30→20:00)
[2020-12-06] MEDS: AMLODIPINE 5 MG TAB PO SCH (08:30)
[2020-12-06] MEDS: POTASSIUM CL SA 10 MEQ TAB PO SCH (08:31)
[2020-12-06] MEDS: FAMOTIDINE 20 MG TAB PO SCH ×2 (08:31→20:24)
--- NOTE | 2020-12-06 16:31 | FAST ---
[employer] FORM SHIFT START DATE/TIME: 12/06/2020 07:00 (CDT) SHIFT END DATE/TIME: 12/06/2020 19:00 (CDT) NAME ASHLEY PARKS DATE OF : 1955 DATE OF ADMISSION: 12/04/2020 15:08 (CDT) PHONE: AGE: 65 N# [id number] GENDER: Male ENCOUNTER PHYSICIAN: Dr. Sergio Huitron M.D. ADMISSION DIAGNOSIS: - Brain Dysfunction 02 - Other Brain (02.9) MASS LESION OF ALIA. EATING: EATING - STEP 1: Does the patient complete the activity by him/herself with no assistance (physical, verbal/nonverbal cueing, setup/clean-up)? No. EATING - STEP 2: Does the patient need only setup/clean-up assistance from one helper? Yes. 1. [id number] ADMISSION PERFORMANCE: Setup or clean-up assistance CODE: 05 ORAL HYGIENE: ORAL HYGIENE - STEP 1: Does the patient complete the activity by him/herself with no assistance (physical, verbal/nonverbal cueing, setup/clean-up)? Yes. 1. [id number] ADMISSION PERFORMANCE: Independent CODE: 06 TOILETING HYGIENE: TOILETING HYGIENE - STEP 1: Does the patient complete the activity by him/herself with no assistance (physical, verbal/nonverbal cueing, setup/clean-up)? No. TOILETING HYGIENE - STEP 2: Does the patient need only setup/clean-up assistance from one helper? Yes. 1. [id number] ADMISSION PERFORMANCE: Setup or clean-up assistance CODE: 05 BATHING: Not assessed/no information CODE: - DRESSING - UPPER BODY: DRESSING - UPPER BODY - STEP 1: Does the patient complete the activity by him/herself with no assistance (physical, verbal/nonverbal cueing, setup/clean-up)? Yes. 1. [id number] ADMISSION PERFORMANCE: Independent CODE: 06 DRESSING - LOWER BODY: DRESSING - LOWER BODY - STEP 1: Does the patient complete the activity by him/herself with no assistance (physical, verbal/nonverbal cueing, setup/clean-up)? Yes. 1. [id number] ADMISSION PERFORMANCE: Independent CODE: 06 PUTTING ON/TAKING OFF FOOTWEAR: FOOTWEAR - STEP 1: Does the patient complete the activity by him/herself with no assistance (physical, verbal/nonverbal cueing, setup/clean-up)? No. FOOTWEAR - STEP 2: Does the patient need only setup/clean-up assistance from one helper? Yes. 1. [id number] ADMISSION PERFORMANCE: Setup or clean-up assistance CODE: 05 ROLL LEFT AND RIGHT: ROLL LEFT AND RIGHT - STEP 1: Does the patient complete the activity by him/herself with no assistance (physical, verbal/nonverbal cueing, setup/clean-up)? Yes. 1. [id number] ADMISSION PERFORMANCE: Independent CODE: 06 SIT TO LYING: SIT TO LYING - STEP 1: Does the patient complete the activity by him/herself with no assistance (physical, verbal/nonverbal cueing, setup/clean-up)? Yes. 1. [id number] ADMISSION PERFORMANCE: Independent CODE: 06 LYING TO SITTING: LYING TO SITTING ON SIDE OF BED - STEP 1: Does the patient complete the activity by him/herself with no assistance (physical, verbal/nonverbal cueing, setup/clean-up)? No. LYING TO SITTING ON SIDE OF BED - STEP 2: Does the patient need only setup/clean-up assistance from one helper? Yes. 1. [id number] ADMISSION PERFORMANCE: Setup or clean-up assistance CODE: 05 SIT TO STAND: SIT TO STAND - STEP 1: Does the patient complete the activity by him/herself with no assistance (physical, verbal/nonverbal cueing, setup/clean-up)? No. SIT TO STAND - STEP 2: Does the patient need only setup/clean-up assistance from one helper? Yes. 1. [id number] ADMISSION PERFORMANCE: Setup or clean-up assistance CODE: 05 TRANSFERS: BED, CHAIR: CHAIR/[id number] TRANSFER - STEP 1: Does the patient complete the activity by him/herself with no assistance (physical, verbal/nonverbal cueing, setup/clean-up)? No. CHAIR/[id number] TRANSFER - STEP 2: Does the patient need only setup/clean-up assistance from one helper? Yes. 1. [id number] ADMISSION PERFORMANCE: Setup or clean-up assistance CODE: 05 TRANSFER TOILET: TOILET TRANSFER - STEP 1: Does the patient complete the activity by him/herself with no assistance (physical, verbal/nonverbal cueing, setup/clean-up)? No. TOILET TRANSFER - STEP 2: Does the patient need only setup/clean-up assistance from one helper? Yes. 1. [id number] ADMISSION PERFORMANCE: Setup or clean-up assistance CODE: 05 TRANSFERS: CAR: Not assessed/no information CODE: - WALK 10 FEET: Not assessed/no information CODE: - 1 STEP (CURB): Not assessed/no information CODE: - PICKING UP OBJECT: Not assessed/no information CODE: - DOES THE PATIENT USE A WHEELCHAIR/SCOOTER? Q1. DOES THE PATIENT USE A WHEELCHAIR/SCOOTER?: Yes CODE: 1 WHEEL 50 FEET WITH TWO TURNS: WHEEL 50 FEET WITH TWO TURNS - STEP 1: Does the patient complete the activity by him/herself with no assistance (physical, verbal/nonverbal cueing, setup/clean-up)? No. WHEEL 50 FEET WITH TWO TURNS - STEP 2: Does the patient need only setup/clean-up assistance from one helper? Yes. 1. [id number] ADMISSION PERFORMANCE: Setup or clean-up assistance CODE: 05 INDICATE THE TYPE OF WHEELCHAIR/SCOOTER USED: RR1. INDICATE THE TYPE OF WHEELCHAIR/SCOOTER USED.: Manual CODE: 1 WHEEL 150 FEET: WHEEL 150 FEET - STEP 1: Does the patient complete the activity by him/herself with no assistance (physical, verbal/nonverbal cueing, setup/clean-up)? No. WHEEL 150 FEET - STEP 2: Does the patient need only setup/clean-up assistance from one helper? Yes. 1. [id number] ADMISSION PERFORMANCE: Setup or clean-up assistance CODE: 05 INDICATE THE TYPE OF WHEELCHAIR/SCOOTER USED: SS1. INDICATE THE TYPE OF WHEELCHAIR/SCOOTER USED.: Manual CODE: 1 BLADDER AND BOWEL: H350. BLADDER CONTINENCE (3-DAY ASSESSMENT PERIOD): Always continent (no documented incontinence) CODE: 0 H400. BOWEL CONTINENCE (3-DAY ASSESSMENT PERIOD): Always continent CODE: 0 SIGNATURE PANEL: The following modified sections: 1. [id number] Admission Performance, 1. [id number] Admission Performance, 1. [id number] Admission Performance, 1. [id number] Admission Performance, 1. CK0944f Admission Performance, 1. [id number] Admission Performance, 1. [id number] Admission Performance, 1. [id number] Admission Performance , 1. [id number] Admission Performance, 1. [id number] Admission Performance, 1. [id number] Admission Performanc e, 1. [id number] Admission Performance, Q1. Does the patient use a wheelchair/scooter?, 1. [id number] Admis alfa Performance, RR1. Indicate the type of wheelchair/scooter used., 1. [id number] Admission Performanc e, Code, 1. [id number] Admission Performance, SS1. Indicate the type of wheelchair/scooter used., H350. Bladder Continence (3-day assessment period), H400. Bowel Continence (3-day assessment period) were [ electronically] signed by Ethel Mitchell C.N.A. on MonDec 06 2020 16:30:27 T-0500 (Central Daylight Time)
[2020-12-07] MEDS: METOPROLOL TAR 25 MG TAB PO SCH ×2 (05:13→17:18)
[2020-12-07] MEDS: ENSURE ENLIVE 237 ML CAN PO SCH ×3 (07:54→20:00)
[2020-12-07] MEDS: ASPIRIN 81 MG CHEWABLE TABLET PO SCH (07:54)
[2020-12-07] MEDS: POTASSIUM CL SA 10 MEQ TAB PO SCH (07:54)
[2020-12-07] MEDS: FAMOTIDINE 20 MG TAB PO SCH ×2 (07:55→20:02)
[2020-12-07] MEDS: AMLODIPINE 5 MG TAB PO SCH (07:55)
--- NOTE | 2020-12-07 17:42 | R.PN ---
PROGRESS NOTES ENCOUNTER DATE AND TIME: 12/07/2020 17:35 (CDT) NAME ASHLEY PARKS DATE OF : 1955 DATE OF ADMISSION: 12/04/2020 15:08 (CDT) MASS LESION OF MELODY COMPLAINT: Pseudomeningocele, poor balance and unsteady gait. SUBJECTIVE: Pt denied any depression. Pt denied any Shortness of Breath. WBC 5.9, Hgb 11.4, prealbumuin 24.2, Ward Maid 0.65, UA is normal. Ambulated 500' without and assistive dev ice and standby assistance. VITAL SIGNS Temperature: 99.0 F SBP/DBP: 109/73 Pulse: 82 Resp: 16 MEDICATION ALLERGIES: No Known Drug Allergies (NKDA) ENVIRONMENTAL ALLERGIES: - Substance Allergies None Known - Other Allergies None Known NURSING: - Shower allowing shower - Bladder care per protocol - Skin care per protocol ACTIVITIES OOB only with supervision THERAPIES: - Dietary and Nutrition Adequate Nutrition. Nutritional Education. Nutritional Supplements. PHYSICAL EXAM - Gen Alert and awake Lying in bed No apparent distress Oriented to: person, time, and place - Skin No breakdown Left frontal shunt in place with rehan - Eyes No abnormalities - ENMT No abnormalities - Neck No abnormalities - CVS RRR - Resp CTA bilaterally - Abd Soft - GI Soft Deferred - No abnormalities - Ext No significant edema - MSK 4/5 weakness in both lower extremities. - Neuro No focal deficits - Psych No abnormalities ASSESSMENT: Pt. is a 65 yo Right-handed male.On 11/03/2020 he was admitted to [facility] with diagnosis MASS LES ION OF ALIA.His impairment category is Brain Dysfunction 02 - Other Brain (02.9).Pre-morbidly, Pt. was independent/mod-I in Safety Awareness, Self-Care, and Communication; and he had good Endurance an d Transfers Control.Currently, he has deficits of Locomotion, Transfers Control, Sphincter Control, E ndurance, and Safety Awareness.Pt. is now [facility] to [facility] for acute in- patient rehabilitation in order to maximize patient's functional independence in activities of daily living, strength, ROM, and mobility.- Rehab Goal Patient has realistic goal of being discharged at assistance level 7-Ind to reside at Home with Fami ly/Relatives. MDM/PLAN: - Physical Therapy Gait dysfunction - to improve, our physical therapists will perform initial evaluation of pt's statu s upon admission and devise an individualized program for Gait Training, and Wheel Chair mobility Inability to transfer - to improve, our physical therapists will perform initial evaluation of pt's status upon admission and devise an individualized program for Bed mobility Need for home safety evaluation - to improve, our physical therapists will perform initial evaluatio n of pt's status upon admission and devise an individualized program for Home Evaluation Need in caregiver upon discharge - to improve, our physical therapists will perform initial evaluati on of pt's status upon admission and devise an individualized program for Caregiver Training Edema - to improve, our physical therapists will perform initial evaluation of pt's status upon admis alfa and devise an individualized program for Elevation Training, and Lymphedema Therapy New precaution - to improve, our physical therapists will perform initial evaluation of pt's status upon admission and devise an individualized program for Patient precaution education Poor endurance - to improve, our physical therapists will perform initial evaluation of pt's status upon admission and devise an individualized program for Endurance Training Weakness - to improve, our physical therapists will perform initial evaluation of pt's status upon a dmission and devise an individualized program for Aquatic Therapy, Neuromuscular Reeducation, and Str engthening Achieving independence - to improve, our physical therapists will perform initial evaluation of pt's status upon admission and devise an individualized program for Community Reintegration Activities - Occupational Therapy Need for career specialist - to improve, our occupation therapists will perform initial evaluation of pt's status upon admission and devise an individualized program for Caregiver Training Weakness - to improve, our occupation therapists will perform initial evaluation of pt's status upon admission and devise an individualized program for Aquatic Therapy, Balance, Endurance, UE ROM, and UE strengthening - Other See attached MAR (Medication Administration Record) - Diet Type Continue Regular - Diet - Liquid Texture Continue Regular - Tube Feed Continue N/A - Bladder care per protocol - Skin care per protocol - Diet - Solid Texture Continue Regular - Shower allowing shower FUNCTIONAL STATUS: UPDATED AT WEEKLY TEAM CONFERENCE - Bladder Same accident frequency: 7-Ind - No accidents in the past 7 days - Bowel Same accident frequency: 7-Ind - No accidents in the past 7 days - Walking Same score based on distance walked: 0(N/A) Same score based on distance walked: 3(>=150ft) - Wheelchair Same score based on distance traveled: 0(N/A) FUNCTIONAL STATUS: - Self-Care A. Eating Steve B. Grooming Steve C. Bathing sup D. Dressing - Upper sup E. Dressing - Lower Sarah F. Toileting Sarah - Sphincter Control G. Bladder control Sarah H. Bowel control Sarah - Transfers Control I. Bed/Chair/Wheelchair sup J. Toilet sup K. Tub/Shower Sarah - Locomotion L. Walk/Wheelchair (B) sup M. Stairs sup - Communication N. Comprehension (B) Steve O. Expression (B) Steve - Social Cognition P. Social Interaction Steve Q. Problem Solving Steve R. Memory Steve - Endurance Good - Balance Fair - Safety Awareness Fair QI SCORES: - Self-Care A. Eating 04-Supervision or touching assistance B. Oral hygiene 03-Partial/moderate assistance C. Toileting hygiene 03-Partial/moderate assistance E. Shower/bathe self 03-Partial/moderate assistance F. Upper body dressing 04-Supervision or touching assistance G. Lower body dressing 03-Partial/moderate assistance H. Putting on/taking off footwear 88-Not attempted due to medical condition or safety concerns - Mobility A. Roll left and right 04-Supervision or touching assistance B. Sit to lying 03-Partial/moderate assistance C. Lying to sitting on side of bed 03-Partial/moderate assistance D. Sit to stand 03-Partial/moderate assistance E. Chair/mxb-jg-fhave transfer 03-Partial/moderate assistance F. Toilet transfer 03-Partial/moderate assistance G. Car transfer 88-Not attempted due to medical condition or safety concerns I. Walk 10 feet 03-Partial/moderate assistance J. Walk 50 feet with two turns 03-Partial/moderate assistance K. Walk 150 feet 03-Partial/moderate assistance L. Walking 10 feet on uneven surfaces 88-Not attempted due to medical condition or safety concerns M. 1 step (curb) 88-Not attempted due to medical condition or safety concerns N. 4 steps 88-Not attempted due to medical condition or safety concerns O. 12 steps 88-Not attempted due to medical condition or safety concerns P. Picking up object 88-Not attempted due to medical condition or safety concerns R. Wheel 50 feet with two turns 88-Not attempted due to medical condition or safety concerns S. Wheel 150 feet 03-Partial/moderate assistance - Bladder and Bowel Bladder continence Bowel continence - Endurance Fair - Balance Fair - Safety Awareness Fair [facility]RENT [facility]. DEFICITS: Self-Care, Mobility, Endurance, Balance, and Safety Awareness SIGNATURE PANEL: (CDT)
[2020-12-07] MEDS: MELATONIN 3 MG TABLET PO PRN (20:02)
[2020-12-08] MEDS: METOPROLOL TAR 25 MG TAB PO SCH ×2 (05:32→16:58)
[2020-12-08] MEDS: ASPIRIN 81 MG CHEWABLE TABLET PO SCH (07:57)
[2020-12-08] MEDS: POTASSIUM CL SA 10 MEQ TAB PO SCH (07:57)
[2020-12-08] MEDS: FAMOTIDINE 20 MG TAB PO SCH ×2 (07:58→18:57)
[2020-12-08] MEDS: ENSURE ENLIVE 237 ML CAN PO SCH ×2 (08:00→18:57)
[2020-12-08] MEDS: AMLODIPINE 5 MG TAB PO SCH (08:00)
--- NOTE | 2020-12-08 18:31 | R.PN ---
PROGRESS NOTES ENCOUNTER DATE AND TIME: 12/08/2020 18:27 (CDT) NAME ASHLEY PARKS DATE OF : 1955 DATE OF ADMISSION: 12/04/2020 15:08 (CDT) MASS LESION OF MELODY COMPLAINT: Pseudomeningocele, poor balance and unsteady gait. SUBJECTIVE: Pt denied any depression. Pt denied any Shortness of Breath. WBC 5.9, Hgb 11.4, prealbumuin 24.2, Shipwright Helper 0.65, UA is normal. Ambulated 500' without and assistive dev ice and standby assistance. Up and down 15 steps with standby assistance using bilateral handrails. VITAL SIGNS Temperature: 97.4 F SBP/DBP: 136/85 Pulse: 89 Resp: 16 MEDICATION ALLERGIES: No Known Drug Allergies (NKDA) ENVIRONMENTAL ALLERGIES: - Substance Allergies None Known - Other Allergies None Known NURSING: - Shower allowing shower - Bladder care per protocol - Skin care per protocol ACTIVITIES OOB only with supervision THERAPIES: - Dietary and Nutrition Adequate Nutrition. Nutritional Education. Nutritional Supplements. PHYSICAL EXAM - Gen Alert and awake Lying in bed No apparent distress Oriented to: person, time, and place - Skin No breakdown Left frontal shunt in place with rehan - Eyes No abnormalities - ENMT No abnormalities - Neck No abnormalities - CVS RRR - Resp CTA bilaterally - Abd Soft - GI Soft Deferred - No abnormalities - Ext No significant edema - MSK 4/5 weakness in both lower extremities. - Neuro No focal deficits - Psych No abnormalities ASSESSMENT: Pt. is a 65 yo Right-handed male.On 11/03/2020 he was admitted to [facility] with diagnosis MASS LES ION OF ALIA.His impairment category is Brain Dysfunction 02 - Other Brain (02.9).Pre-morbidly, Pt. was independent/mod-I in Safety Awareness, Self-Care, and Communication; and he had good Endurance an d Transfers Control.Currently, he has deficits of Locomotion, Transfers Control, Sphincter Control, E ndurance, and Safety Awareness.Pt. is now referred to [facility] for acute in- patient rehabilitation in order to maximize patient's functional independence in activities of daily living, strength, ROM, and mobility.- Rehab Goal Patient has realistic goal of being discharged at assistance level 7-Ind to reside at Home with Fami ly/Relatives. MDM/PLAN: - Physical Therapy Gait dysfunction - to improve, our physical therapists will perform initial evaluation of pt's statu s upon admission and devise an individualized program for Gait Training, and Wheel Chair mobility Inability to transfer - to improve, our physical therapists will perform initial evaluation of pt's status upon admission and devise an individualized program for Bed mobility Need for home safety evaluation - to improve, our physical therapists will perform initial evaluatio n of pt's status upon admission and devise an individualized program for Home Evaluation Need in caregiver upon discharge - to improve, our physical therapists will perform initial evaluati on of pt's status upon admission and devise an individualized program for Caregiver Training Edema - to improve, our physical therapists will perform initial evaluation of pt's status upon admis alfa and devise an individualized program for Elevation Training, and Lymphedema Therapy New precaution - to improve, our physical therapists will perform initial evaluation of pt's status upon admission and devise an individualized program for Patient precaution education Poor endurance - to improve, our physical therapists will perform initial evaluation of pt's status upon admission and devise an individualized program for Endurance Training Weakness - to improve, our physical therapists will perform initial evaluation of pt's status upon a dmission and devise an individualized program for Aquatic Therapy, Neuromuscular Reeducation, and Str engthening Achieving independence - to improve, our physical therapists will perform initial evaluation of pt's status upon admission and devise an individualized program for Community Reintegration Activities - Occupational Therapy Need for childcare teacher - to improve, our occupation therapists will perform initial evaluation of pt's status upon admission and devise an individualized program for Caregiver Training Weakness - to improve, our occupation therapists will perform initial evaluation of pt's status upon admission and devise an individualized program for Aquatic Therapy, Balance, Endurance, UE ROM, and UE strengthening - Other See attached MAR (Medication Administration Record) - Diet Type Continue Regular - Diet - Liquid Texture Continue Regular - Tube Feed Continue N/A - Bladder care per protocol - Skin care per protocol - Diet - Solid Texture Continue Regular - Shower allowing shower FUNCTIONAL STATUS: UPDATED AT WEEKLY TEAM CONFERENCE - Bladder Same accident frequency: 7-Ind - No accidents in the past 7 days - Bowel Same accident frequency: 7-Ind - No accidents in the past 7 days - Walking Same score based on distance walked: 0(N/A) Same score based on distance walked: 3(>=150ft) - Wheelchair Same score based on distance traveled: 0(N/A) FUNCTIONAL STATUS: - Self-Care A. Eating Steve B. Grooming Steve C. Bathing sup D. Dressing - Upper sup E. Dressing - Lower Sarah F. Toileting Sarah - Sphincter Control G. Bladder control Sarah H. Bowel control Sarah - Transfers Control I. Bed/Chair/Wheelchair sup J. Toilet sup K. Tub/Shower Sarah - Locomotion L. Walk/Wheelchair (B) sup M. Stairs sup - Communication N. Comprehension (B) Steve O. Expression (B) Steve - Social Cognition P. Social Interaction Steve Q. Problem Solving Steve R. Memory Steve - Endurance Good - Balance Fair - Safety Awareness Fair QI SCORES: - Self-Care A. Eating 04-Supervision or touching assistance B. Oral hygiene 03-Partial/moderate assistance C. Toileting hygiene 03-Partial/moderate assistance E. Shower/bathe self 03-Partial/moderate assistance F. Upper body dressing 04-Supervision or touching assistance G. Lower body dressing 03-Partial/moderate assistance H. Putting on/taking off footwear 88-Not attempted due to medical condition or safety concerns - Mobility A. Roll left and right 04-Supervision or touching assistance B. Sit to lying 03-Partial/moderate assistance C. Lying to sitting on side of bed 03-Partial/moderate assistance D. Sit to stand 03-Partial/moderate assistance E. Chair/wkl-eb-[id number] transfer 03-Partial/moderate assistance F. Toilet transfer 03-Partial/moderate assistance G. Car transfer 88-Not attempted due to medical condition or safety concerns I. Walk 10 feet 03-Partial/moderate assistance J. Walk 50 feet with two turns 03-Partial/moderate assistance K. Walk 150 feet 03-Partial/moderate assistance L. Walking 10 feet on uneven surfaces 88-Not attempted due to medical condition or safety concerns M. 1 step (curb) 88-Not attempted due to medical condition or safety concerns N. 4 steps 88-Not attempted due to medical condition or safety concerns O. 12 steps 88-Not attempted due to medical condition or safety concerns P. Picking up object 88-Not attempted due to medical condition or safety concerns R. Wheel 50 feet with two turns 88-Not attempted due to medical condition or safety concerns S. Wheel 150 feet 03-Partial/moderate assistance - Bladder and Bowel Bladder continence Bowel continence - Endurance Fair - Balance Fair - Safety Awareness Fair CURRENT [facility]. DEFICITS: Self-Care, Mobility, Endurance, Balance, and Safety Awareness SIGNATURE PANEL: (CDT)
[2020-12-09] MEDS: METOPROLOL TAR 25 MG TAB PO SCH ×2 (05:24→16:58)
[2020-12-09] MEDS: ASPIRIN 81 MG CHEWABLE TABLET PO SCH (07:56)
[2020-12-09] MEDS: POTASSIUM CL SA 10 MEQ TAB PO SCH (07:56)
[2020-12-09] MEDS: FAMOTIDINE 20 MG TAB PO SCH ×2 (07:56→20:25)
[2020-12-09] MEDS: AMLODIPINE 5 MG TAB PO SCH (07:56)
[2020-12-09] MEDS: ENSURE ENLIVE 237 ML CAN PO SCH ×2 (08:00→20:00)
--- NOTE | 2020-12-09 19:12 | R.PN ---
PROGRESS NOTES ENCOUNTER DATE AND TIME: 12/09/2020 19:08 (CDT) NAME ASHLEY PARKS DATE OF : 1955 DATE OF ADMISSION: 12/04/2020 15:08 (CDT) MASS LESION OF EMLODY COMPLAINT: Pseudomeningocele, poor balance and unsteady gait. SUBJECTIVE: Pt denied any depression. Pt denied any Shortness of Breath. WBC 5.9, Hgb 11.4, prealbumuin 24.2, Bus Escort 0.65, UA is normal. Ambulated 250' without an assistive jaya ce and contact guard assistance. Up and down 30 steps with standby assistance using bilateral handrai ls. VITAL SIGNS Temperature: 97.5 F SBP/DBP: 132/78 Pulse: 69 Resp: 16 MEDICATION ALLERGIES: No Known Drug Allergies (NKDA) ENVIRONMENTAL ALLERGIES: - Substance Allergies None Known - Other Allergies None Known NURSING: - Shower allowing shower - Bladder care per protocol - Skin care per protocol ACTIVITIES OOB only with supervision THERAPIES: - Dietary and Nutrition Adequate Nutrition. Nutritional Education. Nutritional Supplements. PHYSICAL EXAM - Gen Alert and awake Lying in bed No apparent distress Oriented to: person, time, and place - Skin No breakdown Left frontal shunt in place with rehan - Eyes No abnormalities - ENMT No abnormalities - Neck No abnormalities - CVS RRR - Resp CTA bilaterally - Abd Soft - GI Soft Deferred - No abnormalities - Ext No significant edema - MSK 4/5 weakness in both lower extremities. - Neuro No focal deficits - Psych No abnormalities ASSESSMENT: Pt. is a 65 yo Right-handed male.On 11/03/2020 he was admitted to [facility] with diagnosis MASS LES ION OF ALIA.His impairment category is Brain Dysfunction 02 - Other Brain (02.9).Pre-morbidly, Pt. was independent/mod-I in Safety Awareness, Self-Care, and Communication; and he had good Endurance an d Transfers Control.Currently, he has deficits of Locomotion, Transfers Control, Sphincter Control, E ndurance, and Safety Awareness.Pt. is now referred to [facility] for acute in- patient rehabilitation in order to maximize patient's functional independence in activities of daily living, strength, ROM, and mobility.- Rehab Goal Patient has realistic goal of being discharged at assistance level 7-Ind to reside at Home with Fami ly/Relatives. MDM/PLAN: - Physical Therapy Gait dysfunction - to improve, our physical therapists will perform initial evaluation of pt's statu s upon admission and devise an individualized program for Gait Training, and Wheel Chair mobility Inability to transfer - to improve, our physical therapists will perform initial evaluation of pt's status upon admission and devise an individualized program for Bed mobility Need for home safety evaluation - to improve, our physical therapists will perform initial evaluatio n of pt's status upon admission and devise an individualized program for Home Evaluation Need in caregiver upon discharge - to improve, our physical therapists will perform initial evaluati on of pt's status upon admission and devise an individualized program for Caregiver Training Edema - to improve, our physical therapists will perform initial evaluation of pt's status upon admi ssion and devise an individualized program for Elevation Training, and Lymphedema Therapy New precaution - to improve, our physical therapists will perform initial evaluation of pt's status upon admission and devise an individualized program for Patient precaution education Poor endurance - to improve, our physical therapists will perform initial evaluation of pt's status upon admission and devise an individualized program for Endurance Training Weakness - to improve, our physical therapists will perform initial evaluation of pt's status upon a dmission and devise an individualized program for Aquatic Therapy, Neuromuscular Reeducation, and Str engthening Achieving independence - to improve, our physical therapists will perform initial evaluation of pt's status upon admission and devise an individualized program for Community Reintegration Activities - Occupational Therapy Need for career services coordinator - to improve, our occupation therapists will perform initial evaluation of pt's status upon admission and devise an individualized program for Caregiver Training Weakness - to improve, our occupation therapists will perform initial evaluation of pt's status upon admission and devise an individualized program for Aquatic Therapy, Balance, Endurance, UE ROM, and UE strengthening - Other See attached MAR (Medication Administration Record) - Diet Type Continue Regular - Diet - Liquid Texture Continue Regular - Tube Feed Continue N/A - Bladder care per protocol - Skin care per protocol - Diet - Solid Texture Continue Regular - Shower allowing shower FUNCTIONAL STATUS: UPDATED AT WEEKLY TEAM CONFERENCE - Bladder Same accident frequency: 7-Ind - No accidents in the past 7 days - Bowel Same accident frequency: 7-Ind - No accidents in the past 7 days - Walking Same score based on distance walked: 0(N/A) Same score based on distance walked: 3(>=150ft) - Wheelchair Same score based on distance traveled: 0(N/A) FUNCTIONAL STATUS: - Self-Care A. Eating Steve B. Grooming Steve C. Bathing sup D. Dressing - Upper sup E. Dressing - Lower Sarah F. Toileting Sarah - Sphincter Control G. Bladder control Sarah H. Bowel control Sarah - Transfers Control I. Bed/Chair/Wheelchair sup J. Toilet sup K. Tub/Shower Sarah - Locomotion L. Walk/Wheelchair (B) sup M. Stairs sup - Communication N. Comprehension (B) Steve O. Expression (B) Steve - Social Cognition P. Social Interaction Steve Q. Problem Solving Steve R. Memory Steve - Endurance Good - Balance Fair - Safety Awareness Fair QI SCORES: - Self-Care A. Eating 04-Supervision or touching assistance B. Oral hygiene 03-Partial/moderate assistance C. Toileting hygiene 03-Partial/moderate assistance E. Shower/bathe self 03-Partial/moderate assistance F. Upper body dressing 04-Supervision or touching assistance G. Lower body dressing 03-Partial/moderate assistance H. Putting on/taking off footwear 88-Not attempted due to medical condition or safety concerns - Mobility A. Roll left and right 04-Supervision or touching assistance B. Sit to lying 03-Partial/moderate assistance C. Lying to sitting on side of bed 03-Partial/moderate assistance D. Sit to stand 03-Partial/moderate assistance E. Chair/xee-dk-gfdjo transfer 03-Partial/moderate assistance F. Toilet transfer 03-Partial/moderate assistance G. Car transfer 88-Not attempted due to medical condition or safety concerns I. Walk 10 feet 03-Partial/moderate assistance J. Walk 50 feet with two turns 03-Partial/moderate assistance K. Walk 150 feet 03-Partial/moderate assistance L. Walking 10 feet on uneven surfaces 88-Not attempted due to medical condition or safety concerns M. 1 step (curb) 88-Not attempted due to medical condition or safety concerns N. 4 steps 88-Not attempted due to medical condition or safety concerns O. 12 steps 88-Not attempted due to medical condition or safety concerns P. Picking up object 88-Not attempted due to medical condition or safety concerns R. Wheel 50 feet with two turns 88-Not attempted due to medical condition or safety concerns S. Wheel 150 feet 03-Partial/moderate assistance - Bladder and Bowel Bladder continence Bowel continence - Endurance Fair - Balance Fair - Safety Awareness Fair CURRENT [facility]. DEFICITS: Self-Care, Mobility, Endurance, Balance, and Safety Awareness SIGNATURE PANEL: (CDT)
[2020-12-09] MEDS: MELATONIN 3 MG TABLET PO PRN (20:25)
[2020-12-10] MEDS: METOPROLOL TAR 25 MG TAB PO SCH ×2 (05:38→17:00)
[2020-12-10 06:17] LABS: Absolute Lymphocytes (CBC) 1.5 K/uL (0.7-4.9); Hematocrit 34.8 % (39.6-49.0); Lymphocytes % 14.7 % (15.3-44.8); RBC Red Blood Cell Count 3.83 M/uL (4.33-5.43)
[2020-12-10 06:31] LABS: Albumin 3.2 g/dL (3.4-5.0); BUN Blood Urea Nitrogen 11 mg/dL (7-18); Bicarbonate 30 mmol/L (21-32); Glucose Level 104 mg/dL (74-106); Magnesium 2.2 mg/dL (1.8-2.4); Potassium 4.1 mmol/L (3.5-5.1); Prealbumin 25.7 mg/dL (20-40); Sodium Level 141 mmol/L (136-145)
[2020-12-10] MEDS: ENSURE ENLIVE 237 ML CAN PO SCH ×2 (08:00→20:00)
[2020-12-10] MEDS: POTASSIUM CL SA 10 MEQ TAB PO SCH (08:56)
[2020-12-10] MEDS: ASPIRIN 81 MG CHEWABLE TABLET PO SCH (08:56)
[2020-12-10] MEDS: AMLODIPINE 5 MG TAB PO SCH (08:59)
[2020-12-10] MEDS: FAMOTIDINE 20 MG TAB PO SCH ×2 (10:38→20:04)
--- NOTE | 2020-12-10 17:10 | R.PN ---
PROGRESS NOTES ENCOUNTER DATE AND TIME: 12/10/2020 17:05 (CDT) NAME ASHLEY PARKS DATE OF : 1955 DATE OF ADMISSION: 12/04/2020 15:08 (CDT) MASS LESION OF MELODY COMPLAINT: Pseudomeningocele, poor balance and unsteady gait. SUBJECTIVE: Pt denied any depression. Pt denied any Shortness of Breath. WBC 10.3, Hgb 11.8, prealbumuin 25.7, Instructor Nurse 0.65, UA is normal. Ambulated 1250' without an assistive de vice and independence. Up and down 20 steps with independence using bilateral handrails. VITAL SIGNS Temperature: 99.2 F SBP/DBP: 119/81 Pulse: 74 Resp: 16 MEDICATION ALLERGIES: No Known Drug Allergies (NKDA) ENVIRONMENTAL ALLERGIES: - Substance Allergies None Known - Other Allergies None Known NURSING: - Shower allowing shower - Bladder care per protocol - Skin care per protocol ACTIVITIES OOB only with supervision THERAPIES: - Dietary and Nutrition Adequate Nutrition. Nutritional Education. Nutritional Supplements. PHYSICAL EXAM - Gen Alert and awake Lying in bed No apparent distress Oriented to: person, time, and place - Skin No breakdown Left frontal shunt in place with rehan - Eyes No abnormalities - ENMT No abnormalities - Neck No abnormalities - CVS RRR - Resp CTA bilaterally - Abd Soft - GI Soft Deferred - No abnormalities - Ext No significant edema - MSK 4/5 weakness in both lower extremities. - Neuro No focal deficits - Psych No abnormalities ASSESSMENT: Pt. is a 65 yo Right-handed male.On 11/03/2020 he was admitted to [facility] with diagnosis MASS LES ION OF ALIA.His impairment category is Brain Dysfunction 02 - Other Brain (02.9).Pre-morbidly, Pt. was independent/mod-I in Safety Awareness, Self-Care, and Communication; and he had good Endurance an d Transfers Control.Currently, he has deficits of Locomotion, Transfers Control, Sphincter Control, E ndurance, and Safety Awareness.Pt. is now referred to [facility] for acute in- patient rehabilitation in order to maximize patient's functional independence in activities of daily living, strength, ROM, and mobility.- Rehab Goal Patient has realistic goal of being discharged at assistance level 7-Ind to reside at Home with Fami ly/Relatives. MDM/PLAN: - Physical Therapy Gait dysfunction - to improve, our physical therapists will perform initial evaluation of pt's statu s upon admission and devise an individualized program for Gait Training, and Wheel Chair mobility Inability to transfer - to improve, our physical therapists will perform initial evaluation of pt's status upon admission and devise an individualized program for Bed mobility Need for home safety evaluation - to improve, our physical therapists will perform initial evaluatio n of pt's status upon admission and devise an individualized program for Home Evaluation Need in caregiver upon discharge - to improve, our physical therapists will perform initial evaluati on of pt's status upon admission and devise an individualized program for Caregiver Training Edema - to improve, our physical therapists will perform initial evaluation of pt's status upon admi ssion and devise an individualized program for Elevation Training, and Lymphedema Therapy New precaution - to improve, our physical therapists will perform initial evaluation of pt's status upon admission and devise an individualized program for Patient precaution education Poor endurance - to improve, our physical therapists will perform initial evaluation of pt's status upon admission and devise an individualized program for Endurance Training Weakness - to improve, our physical therapists will perform initial evaluation of pt's status upon a dmission and devise an individualized program for Aquatic Therapy, Neuromuscular Reeducation, and Str engthening Achieving independence - to improve, our physical therapists will perform initial evaluation of pt's status upon admission and devise an individualized program for Community Reintegration Activities - Occupational Therapy Need for hospice home care coordinator - to improve, our occupation therapists will perform initial evaluation of pt's status upon admission and devise an individualized program for Caregiver Training Weakness - to improve, our occupation therapists will perform initial evaluation of pt's status upon admission and devise an individualized program for Aquatic Therapy, Balance, Endurance, UE ROM, and UE strengthening - Other See attached MAR (Medication Administration Record) - Diet Type Continue Regular - Diet - Liquid Texture Continue Regular - Tube Feed Continue N/A - Bladder care per protocol - Skin care per protocol - Diet - Solid Texture Continue Regular - Shower allowing shower FUNCTIONAL STATUS: UPDATED AT WEEKLY TEAM CONFERENCE - Bladder Same accident frequency: 7-Ind - No accidents in the past 7 days - Bowel Same accident frequency: 7-Ind - No accidents in the past 7 days - Walking Same score based on distance walked: 0(N/A) Same score based on distance walked: 3(>=150ft) - Wheelchair Same score based on distance traveled: 0(N/A) FUNCTIONAL STATUS: - Self-Care A. Eating Steve B. Grooming Steve C. Bathing sup D. Dressing - Upper sup E. Dressing - Lower Sarah F. Toileting Sarah - Sphincter Control G. Bladder control Sarah H. Bowel control Sarah - Transfers Control I. Bed/Chair/Wheelchair sup J. Toilet sup K. Tub/Shower Sarah - Locomotion L. Walk/Wheelchair (B) sup M. Stairs sup - Communication N. Comprehension (B) Steve O. Expression (B) Steve - Social Cognition P. Social Interaction Steve Q. Problem Solving Steve R. Memory Steve - Endurance Good - Balance Fair - Safety Awareness Fair QI SCORES: - Self-Care A. Eating 04-Supervision or touching assistance B. Oral hygiene 03-Partial/moderate assistance C. Toileting hygiene 03-Partial/moderate assistance E. Shower/bathe self 03-Partial/moderate assistance F. Upper body dressing 04-Supervision or touching assistance G. Lower body dressing 03-Partial/moderate assistance H. Putting on/taking off footwear 88-Not attempted due to medical condition or safety concerns - Mobility A. Roll left and right 04-Supervision or touching assistance B. Sit to lying 03-Partial/moderate assistance C. Lying to sitting on side of bed 03-Partial/moderate assistance D. Sit to stand 03-Partial/moderate assistance E. Chair/zax-jh-oacou transfer 03-Partial/moderate assistance F. Toilet transfer 03-Partial/moderate assistance G. Car transfer 88-Not attempted due to medical condition or safety concerns I. Walk 10 feet 03-Partial/moderate assistance J. Walk 50 feet with two turns 03-Partial/moderate assistance K. Walk 150 feet 03-Partial/moderate assistance L. Walking 10 feet on uneven surfaces 88-Not attempted due to medical condition or safety concerns M. 1 step (curb) 88-Not attempted due to medical condition or safety concerns N. 4 steps 88-Not attempted due to medical condition or safety concerns O. 12 steps 88-Not attempted due to medical condition or safety concerns P. Picking up object 88-Not attempted due to medical condition or safety concerns R. Wheel 50 feet with two turns 88-Not attempted due to medical condition or safety concerns S. Wheel 150 feet 03-Partial/moderate assistance - Bladder and Bowel Bladder continence Bowel continence - Endurance Fair - Balance Fair - Safety Awareness Fair CURRENT [facility]. DEFICITS: Self-Care, Mobility, Endurance, Balance, and Safety Awareness SIGNATURE PANEL: (CDT)
[2020-12-10] MEDS: MELATONIN 3 MG TABLET PO PRN (20:04)
[2020-12-11] MEDS: METOPROLOL TAR 25 MG TAB PO SCH ×2 (05:09→17:16)
[2020-12-11] MEDS: ASPIRIN 81 MG CHEWABLE TABLET PO SCH (07:48)
[2020-12-11] MEDS: POTASSIUM CL SA 10 MEQ TAB PO SCH (07:49)
[2020-12-11] MEDS: FAMOTIDINE 20 MG TAB PO SCH ×2 (07:49→20:39)
[2020-12-11] MEDS: AMLODIPINE 5 MG TAB PO SCH (08:00)
[2020-12-11] MEDS: ENSURE ENLIVE 237 ML CAN PO SCH ×2 (08:00→20:00)
--- NOTE | 2020-12-11 10:06 | P.RH.PN ---
Estimated Length of Stay: 10 Expected Discharge Date: 12/13/20 Discharge Disposition Plan: Home Family Support: Yes Nursing Home Goal: Mobility, Transfers, Self Care Vital Signs: Last Vital Signs Temp 97.6 F 12/11/20 07:12 Pulse 62 12/11/20 08:00 Resp 14 12/11/20 07:12 BP 103/58 L 12/11/20 08:00 Pulse Ox 98 12/11/20 07:12 Laboratory: Laboratory Last Values WBC 10.30 K/uL (4.3-10.9) D 12/10/20 05:52 RBC 3.83 M/uL (4.33-5.43) L 12/10/20 05:52 Hgb 11.8 g/dL (13.6-17.9) L 12/10/20 05:52 Hct 34.8 % (39.6-49.0) L 12/10/20 05:52 MCV 90.8 fL (80-100) 12/10/20 05:52 MCH 30.9 pg (27.0-35.0) 12/10/20 05:52 MCHC 34.0 g/dL (32.0-36.0) 12/10/20 05:52 RDW 15.4 % (12.1-15.2) H 12/10/20 05:52 Plt Count 231 K/uL (152-406) 12/10/20 05:52 MPV 9.0 fL (7.6-11.3) 12/10/20 05:52 Neutrophils % 66.4 % (41.7-73.7) 12/10/20 05:52 Lymphocytes % 14.7 % (15.3-44.8) L 12/10/20 05:52 Monocytes % 12.7 % (3.3-12.3) H 12/10/20 05:52 Eosinophils % 5.2 % (0-4.4) H 12/10/20 05:52 Basophils % 1.0 % (0-1.3) 12/10/20 05:52 Absolute Neutrophils 6.8 K/uL (1.8-8.0) 12/10/20 05:52 Absolute Lymphocytes 1.5 K/uL (0.7-4.9) 12/10/20 05:52 Absolute Monocytes 1.3 K/uL (0.1-1.3) 12/10/20 05:52 Absolute Eosinophils 0.5 K/uL (0-0.5) 12/10/20 05:52 Absolute Basophils 0.1 K/uL (0-0.5) 12/10/20 05:52 Sodium 141 mmol/L (136-145) 12/10/20 05:52 Potassium 4.1 mmol/L (3.5-5.1) 12/10/20 05:52 Chloride 108 mmol/L (98-107) H 12/10/20 05:52 Carbon Dioxide 30 mmol/L (21-32) 12/10/20 05:52 BUN 11 mg/dL (7-18) 12/10/20 05:52 Creatinine 0.75 mg/dL (0.55-1.3) 12/10/20 05:52 Estimated GFR > 90 mL/min (=/>90) 12/10/20 05:52 Glucose 104 mg/dL (74-106) 12/10/20 05:52 Calcium 8.9 mg/dL (8.5-10.1) 12/10/20 05:52 Magnesium 2.2 mg/dL (1.8-2.4) 12/10/20 05:52 Albumin 3.2 g/dL (3.4-5.0) L 12/10/20 05:52 Prealbumin 25.7 mg/dL (20-40) 12/10/20 05:52 Urine Color Cancelled 12/04/20 16:00 Urine Color Yellow (Yellow) 12/04/20 16:00 Urine Appearance Cancelled 12/04/20 16:00 Urine Appearance Clear (Clear) 12/04/20 16:00 Urine pH 6.0 (5.0-7.0) 12/04/20 16:00 Urine pH Cancelled 12/04/20 16:00 Ur Specific [place] 1.010 (1.005-1.030) 12/04/20 16:00 Ur Specific [place] Cancelled 12/04/20 16:00 Glucose (UA)(Auto) Cancelled 12/04/20 16:00 Glucose (UA)(Auto) Negative (Negative) 12/04/20 16:00 Urine Ketones Cancelled 12/04/20 16:00 Urine Ketones Negative (Negative) 12/04/20 16:00 Urine Blood Cancelled 12/04/20 16:00 Urine Blood Negative (Negative) 12/04/20 16:00 Urine Nitrite Cancelled 12/04/20 16:00 Urine Nitrite Negative (Negative) 12/04/20 16:00 Urine Bilirubin Cancelled 12/04/20 16:00 Urine Bilirubin Negative (Negative) 12/04/20 16:00 Urine Urobilinogen 0.2 mg/dL (0.2-1.0) 12/04/20 16:00 Urine Urobilinogen Cancelled 12/04/20 16:00 Ur Leukocyte Esterase Cancelled 12/04/20 16:00 Ur Leukocyte Esterase Negative (Negative) 12/04/20 16:00 Urine RBC None seen /HPF (NONE SEEN) 12/04/20 16:00 Urine WBC <5 /HPF (<5) 12/04/20 16:00 Ur Squamous Epith Cells <5 /HPF (NONE SEEN) 12/04/20 16:00 Urine Bacteria <20 /HPF (NONE SEEN) 12/04/20 16:00 Ur Microscopic Review Cancelled 12/04/20 16:00 Urine Culture Reflexed Not needed 12/04/20 16:00 Urine Total Protein Cancelled 12/04/20 16:00 Urine Total Protein Negative (Negative) 12/04/20 16:00 SARS-CoV-2 RNA (RT-PCR) Negative (NEGATIVE) 12/04/20 16:30 Weight: 125 lb Wound Present: No Closed Surgical Incision Present: Yes Negative Pressure Wound Therapy Present: No Physician Update: Labs reviewed and are stable. He is walking 750' and 500' with standby assistance. Up and down 15 steps with independence. Functional Improvement: Patient has shown marked improvement in all aspects of therapy. Patient is Independent w/ transfers and gait tx., and is able to chicken picker objects from floor and maintain balance throughout. Summary: Patient's care plan and residential goals have been reviewed and revised as necessary. Please see the Rehabilitation Signature page for all necessary signatures.
[2020-12-11] MEDS: MELATONIN 3 MG TABLET PO PRN (20:39)
[2020-12-12] MEDS: METOPROLOL TAR 25 MG TAB PO SCH ×2 (05:19→16:53)
[2020-12-12 05:50] VITALS: BMI 19.1
[2020-12-12] MEDS: ENSURE ENLIVE 237 ML CAN PO SCH ×2 (08:00→18:53)
[2020-12-12] MEDS: POTASSIUM CL SA 10 MEQ TAB PO SCH (08:08)
[2020-12-12] MEDS: AMLODIPINE 5 MG TAB PO SCH (08:08)
[2020-12-12] MEDS: ASPIRIN 81 MG CHEWABLE TABLET PO SCH (08:08)
[2020-12-12] MEDS: FAMOTIDINE 20 MG TAB PO SCH ×2 (08:08→18:52)
[2020-12-12] MEDS: MELATONIN 3 MG TABLET PO PRN (18:55)
[2020-12-13] MEDS: METOPROLOL TAR 25 MG TAB PO SCH (05:04)
[2020-12-13] MEDS: ENSURE ENLIVE 237 ML CAN PO SCH (08:00)
[2020-12-13] MEDS: AMLODIPINE 5 MG TAB PO SCH (08:13)
[2020-12-13] MEDS: POTASSIUM CL SA 10 MEQ TAB PO SCH (08:13)
[2020-12-13] MEDS: FAMOTIDINE 20 MG TAB PO SCH (08:13)
[2020-12-13] MEDS: ASPIRIN 81 MG CHEWABLE TABLET PO SCH (08:13)
[2020-12-13 08:14] VITALS: BP 131/76
[2020-12-13 08:24] VITALS: TEMP 97.4
--- NOTE | 2020-12-20 17:26 | R.DS ---
DISCHARGE SUMMARY FACILITY [facility] MR# [id number] NAME ASHLEY PARKS ADDRESS [address] [place] [address] PHONE DATE OF 1955 AGE 65 SSN# [id number] GENDER Male MARITAL STATUS ENCOUNTER PHYSICIAN Dr. Sergio Huitron M.D. REFERRING DOCTOR [facility] REFERRING FACILITY [facility] DISCHARGE DIAGNOSIS: - Brain Dysfunction 02 - Other Brain (02.9) MASS LESION OF ALIA. DATE OF ADMISSION 12/04/2020 15:08 (CDT) MEDICATION ALLERGIES: No Known Drug Allergies (NKDA) ENVIRONMENTAL ALLERGIES: - Substance Allergies None Known - Other Allergies None Known DISCHARGE MEDICATIONS: Other- ContinueSee attached MAR (Medication Administration Record). NURSING: - Shower allowing shower - Bladder care per protocol - Skin care per protocol ACTIVITIES OOB only with supervision THERAPIES: - Dietary and Nutrition Adequate Nutrition Nutritional Education Nutritional Supplements HISTORY OF PRESENT ILLNESS: Pt. is a 65 yo Right-handed male.On 11/03/2020 he was admitted to [facility] with diagnosis MASS LES ION OF ALIA.His impairment category is Brain Dysfunction 02 - Other Brain (02.9).Pre-morbidly, Pt. was independent/mod-I in Safety Awareness, Self-Care, and Communication; and he had good Endurance an d Transfers Control.Currently, he has deficits of Locomotion, Transfers Control, Sphincter Control, E ndurance, and Safety Awareness.Pt. is now referred to [facility] for acute in- patient rehabilitation in order to maximize patient's functional independence in activities of daily living, strength, ROM, and mobility.- Rehab Goal Patient has realistic goal of being discharged at assistance level 7-Ind to reside at Home with Fami ly/Relatives. HOSPITAL COURSE: DIET - LIQUID TEXTURE: On 12/03/2020 Pt was upgraded to Regular Diet - Liquid Texture. DIET - SOLID TEXTURE: On 12/03/2020 Pt was upgraded to Regular Diet - Solid Texture. DIET TYPE: On 12/03/2020 Pt was upgraded to Regular Diet Type. TUBE FEED: On 12/03/2020 Pt was changed to N/A Tube Feed. DISCHARGE PHYSICAL EXAM - Gen Alert and awake Lying in bed No apparent distress Oriented to: person, time, and place - Skin No breakdown Left frontal shunt in place with rehan - Eyes No abnormalities - ENMT No abnormalities - Neck No abnormalities - CVS RRR - Resp CTA bilaterally - Abd Soft - GI Soft Deferred - No abnormalities - Ext No significant edema - MSK 4/5 weakness in both lower extremities. - Neuro No focal deficits - Psych No abnormalities FUNCTIONAL STATUS: - Self-Care A. Eating 6-Steve B. Grooming 6-Steve C. Bathing 6-Steve D. Dressing - Upper 6-Steve E. Dressing - Lower 6-Steve F. Toileting 6-Steve - Sphincter Control G. Bladder control 6-Steve H. Bowel control 6-Steve - Transfers Control I. Bed/Chair/Wheelchair 6-Steve J. Toilet 6-Steve K. Tub/Shower 6-Steve - Locomotion L. Walk/Wheelchair (B) 6-Steve M. Stairs 6-Steve - Communication N. Comprehension (B) 6-Steve O. Expression (B) 6-Steve - Social Cognition P. Social Interaction 6-Steve Q. Problem Solving 6-Steve R. Memory 6-Steve - Endurance Good - Balance Good - Safety Awareness Good QI SCORES: - Self-Care A. Eating 04-Supervision or touching assistance B. Oral hygiene 03-Partial/moderate assistance C. Toileting hygiene 03-Partial/moderate assistance E. Shower/bathe self 03-Partial/moderate assistance F. Upper body dressing 04-Supervision or touching assistance G. Lower body dressing 03-Partial/moderate assistance H. Putting on/taking off footwear 88-Not attempted due to medical condition or safety concerns - Mobility A. Roll left and right 04-Supervision or touching assistance B. Sit to lying 03-Partial/moderate assistance C. Lying to sitting on side of bed 03-Partial/moderate assistance D. Sit to stand 03-Partial/moderate assistance E. Chair/[id number] transfer 03-Partial/moderate assistance F. Toilet transfer 03-Partial/moderate assistance G. Car transfer 88-Not attempted due to medical condition or safety concerns I. Walk 10 feet 03-Partial/moderate assistance J. Walk 50 feet with two turns 03-Partial/moderate assistance K. Walk 150 feet 03-Partial/moderate assistance L. Walking 10 feet on uneven surfaces 88-Not attempted due to medical condition or safety concerns M. 1 step (curb) 88-Not attempted due to medical condition or safety concerns N. 4 steps 88-Not attempted due to medical condition or safety concerns O. 12 steps 88-Not attempted due to medical condition or safety concerns P. Picking up object 88-Not attempted due to medical condition or safety concerns R. Wheel 50 feet with two turns 88-Not attempted due to medical condition or safety concerns S. Wheel 150 feet 03-Partial/moderate assistance - Bladder and Bowel Bladder continence Bowel continence - Endurance Fair - Balance Fair - Safety Awareness Fair DISCHARGE INSTRUCTIONS: - N/A Aspirin 81 mg daily. DISCHARGE PLAN, FOLLOW UP CARE PROVISIONS: - Estimated Length of Stay (days) 13. - Consensus on plan Discharge plan has been discussed with primary caregiver. Patient/Family is in agreement with the marie n. Primary caregiver is in agreement with the plan. - Patient/Family Goals Return home independently. - Planned Living Setting Upon Discharge Home, to live with Family/Relatives. Transitional Living. SIGNATURE PANEL: (CDT)
== END 2020-12-13 14:00 | disposition home or self-care (01) | DRG 72 ==
LOC: 5TH 15:08
PROVIDERS: ADMIT Psychiatry & Neurology Neurology with Special Qualifications in Child Neurology; ATTEND Psychiatry & Neurology Neurology with Special Qualifications in Child Neurology
DX: G93.9 Disorder of brain, unspecified (principal); Z98.890 Other specified postprocedural states; M19.90 Unspecified osteoarthritis, unspecified site; Z20.822 Contact with and (suspected) exposure to COVID-19
CPT/HCPCS: 36415; 80048; 81001; 82040; 83735; 84132; 84134; 85025; 87086; 87088; 92523; 97110; 97112; 97116; 97127; 97163; 97530; 97542; U0003